=== PATIENT | male | born 1945 | race African-American/Black ===

== ENCOUNTER 2016-11-21 19:11 | Inpatient (IN) ==
[2016-11-21] MEDS ORDERED: ALBUTEROL/IPRATROPIUM 3 ML NEB RESP TX STA (19:44)
[2016-11-21 19:48] LABS: Basophils % 0.2 % (0.0-0.8); Eosinophils # 0.2 10*3/uL (0.0-0.87); Eosinophils % 1.3 % (0.00-10.9); Hematocrit 36.3 VOL% (42.0-52.0); Hemoglobin 12.4 GM/DL (14.0-18.0); Immature Granulocytes % 0.4 %; Immature Granulocytes Absolute 0.06 #; Lymphocytes # 1.5 10*3/uL (1.4-4.0); Lymphocytes % 10.8 % (21.2-54.2); Mean Corpuscular HGB Conc 34.2 GM/DL (32-36); Mean Corpuscular Hemoglobin 29 PG (27-34); Mean Corpuscular Volume 85.2 FL (87-102); Mean Platelet Volume 11.7 FL (9.6-12.0); Monocytes # 1.1 10*3/uL (0.11-0.8); Monocytes % 7.7 % (1.7-12.7); Neutrophils # 11.2 10*3/uL (1.4-7.4); Neutrophils % 79.6 % (38.7-73.9); Platelet Count 157 T/CUMM (130-400); Red Blood Count 4.26 MC/CUMM (3.8-5.5); Red Cell Distribution Width 14.1 % (9.3-17.3); White Blood Count 14.1 T/CUMM (4-12)
--- NOTE | 2016-11-21 19:58 | Emergency Department Note ---
IAllen Sierra, am scribing for, and in the presence of, Dana Castaneda DO 19: 45. I, Dana Castaneda DO, personally performed the services described in this documentation, ascribed by Silvana Villa in my presence, and it is both accurate and complete [id number] . Arrival - Arrival Chief Complaint: Shortness of Breath Stated Complaint: SOB/BLOOD IN URINE/WEAKNESS ED Nursing Triage Note: Patient to triage with c/o SOB with exertion and pain between his shoulders that started this morning when he woke up. patient has been diaphoretic. seen here yesterday with c/o blood in urine and had CT scan. having pain in scrotom. Mode of Arrival: Ambulatory Limitations: No Limitations Source: Patient Time Seen by Provider: 11/21/16 19:31 - History of Present Illness HPI Narrative: Pt is a 70 y/o male with c/o SOB that has been going on since his total knee replacement in July 2016 but worsened this morning. Pt has associated sxs of cough, diaphoresis, CP, fever, and hematuria. Pt states the hematuria has only been going on for a few days and he was seen here yesterday for the hematuria and had a CT. Pt reports "I can walk through 3 rooms and be out of breath." Pt states he did have a heart cath by Dr. Villalobos 20-30 years ago. Pt's PCP is Dr. Schmidt. No other complaints/pain in ED. Onset (ago): month(s) Consistency: constant Severity: moderate Severity scale (1-10): 5 Quality: other Allergies/Adverse Reactions: Allergies Allergy/AdvReac Type Severity Reaction Status Date / Time lisinopril Allergy Severe ANAPHYLAXIS Verified 11/21/16 19:17 Home Medications: Home Medications Medication Instructions Recorded Confirmed Type Bumetanide Tab [Bumex Tab] 1 mg PO DAILY 07/13/16 11/21/16 History Carbidopa/Levodopa [Carbidopa-Levo 25 - 100 tablet PO DAILY 07/13/16 11/21/16 History 25-100 mg Odt] Carvedilol [Coreg] 6.25 mg PO BID 07/13/16 11/21/16 History Clopidogrel [Plavix] 75 mg PO DAILY 07/13/16 11/21/16 History Glimepiride [Amaryl] 1 mg PO DAILY W/BREAKFAST 07/13/16 11/21/16 History Insulin NPH Hum/Reg Insulin Hm 50 unit SUBCUT BID 07/13/16 11/21/16 History [NovoLIN 70/30] Levothyroxine Tab [Synthroid Tab] 0.137 mg PO DAILY 07/13/16 11/21/16 History Omeprazole 20 mg PO DAILY 07/13/16 11/21/16 History Potassium Chloride 10 meq PO DAILY 07/13/16 11/21/16 History Simvastatin 40 mg PO BEDTIME 07/13/16 11/21/16 History Spironolactone 25 mg PO DAILY 07/13/16 11/21/16 History Aspirin EC Tab 325 mg PO DAILY #30 tablet 08/01/16 11/21/16 Rx Review of System - Review of System 12 point system: reviewed and no additional remarkable complaints except as stated - Review of System Constitutional: Present: diaphoresis, fever Respiratory: Present: cough, other (SOB) Cardiovascular: Present: chest pain Gastrointestinal: Absent: abdominal pain Genitourinary male: Present: hematuria Musculoskeletal: Absent: arm pain, leg pain, neck pain Skin: Absent: rash Neurological: Absent: headache Psychiatric: Absent: anxiety Medical,Surgical,& Family Hx - Medical History Cardio: History of: Cardiac Dysrhythmia (HEART MURMUR), Hypertension, Cardiovascular Problems (DR VILLALOBOS. LAST VISIT JUL 2015.) Neurology: History of: Cerebrovascular Accident (2013) No history of: Seizures HEENT: History of: Eye Problem (READING GLASSES, FLOATERS) Endocrine: History of: Diabetes Mellitus (IDDM), Dyslipidemia, Thyroid Disorder Rheumatology: History of;: Gout (OCCASIONALLY), Rheumatoid Arthritis Respiratory: History of: Obstructive Sleep Apnea (CPAP), Respiratory Problems ( SHORTNESS OF BREATH OCCASIONALLY. FLU VAC- YES; PNEU- YES) Gastrointestinal: History of: GERD, Hemorrhoids (PAST HX), Polyps (REMOVED) Other: History of: Anaphylaxis (LISINOPRIL), Cancer (FACIAL CANCER), Miscellaneous Medical Problems (DR MODI YEARLY. DR SCHMIDT.) - Surgical History Cardiac Surgeries: Sugical HX of: Cardiac Catheterization Thoracic Surgeries: Surgical HX of;: Kidney (Renal Surgery) (LEFT KIDNEY SX TO REMOVE CYSTS) HEENT Surgeries: Surgical HX of: Eye Surgery (THERON CATARACT SX) Abdominal Surgeries: Surgical HX of: Colonoscopy, EGD Reproductive Surgeries: Surgical HX of;: Genitourinary Surgery Orthopedic Surgeries: Surgical HX of;: Total Knee Replacement (LEFT KNEE) - Family History Family History: Reports;: Family Cancer (grandmother), Family Diabetes (mother) , Family Hypertension (son and mother) - Social History Smoking Status: Never smoker Frequency of Alcohol Use: None Type of Drug Use: None Exam Vital Signs: Vital Signs Temperature 98.1 F 11/21/16 19:14 Pulse Rate 101 H 11/21/16 19:14 Respiratory Rate 22 11/21/16 19:27 Blood Pressure 160/96 11/21/16 19:14 O2 Sat by Pulse Oximetry 96 11/21/16 19:14 - General General appearance: alert, in no apparent distress, obese (mildly obese) - Head Head exam: Present: atraumatic, normocephalic - Eye Eye exam: Present: PERRL, EOMI - ENT ENT exam: Present: mucous membranes moist. Absent: mucous membranes dry - Neck Neck exam: Present: full ROM. Absent: tenderness - Chest Chest inspection: Present: symmetric chest wall rise, tenderness (mild tenderness with palpitiation on the left chest wall) - Respiratory Respiratory exam: Present: wheezes (mild expiratory wheezing with the left greater than the right) - Cardiovascular Cardiovascular exam: Present: regular rate, normal rhythm, normal heart sounds - Abdominal Exam Abdominal exam: Present: soft. Absent: tenderness - Extremities Exam Extremities exam: Present: full ROM. Absent: tenderness - Back Exam Back exam: Present: full ROM. Absent: tenderness - Neurological Exam Neurological exam: Present: alert, oriented X3, CN II-XII intact. Absent: motor sensory deficit - Psychiatric Psychiatric exam: Present: normal affect, normal mood - Skin Skin exam: Present: warm, dry Course Course Narrative: spoke with hospitalist who will admit pt. Results - Labs CBC & BMP: 11/21/16 19:27 11/21/16 19:27 Lab Results: I have reviewed the patients labs Labs: Laboratory Tests 11/21/16 19:27 WBC 14.1 H Hgb 12.4 L Hct 36.3 L MCV 85.2 L Neut % (Auto) 79.6 H Lymph % (Auto) 10.8 L Neut # (Auto) 11.2 H Kerr # (Auto) 1.1 H Laboratory Tests 11/21/16 19:27 Carbon Dioxide 19 L Anion Gap 16.8 H BUN 24 H Creatinine 1.70 H Glucose 152 H Calcium 8.4 L ALT 15 L Albumin 3.3 L Globulin 4.1 H Albumin/Globulin Ratio 0.8 L Laboratory Tests 11/21/16 19:27 D-Dimer, Quantitative 0.7 - Diagnostic Findings Procedure: Chest x-ray: report reviewed by me (No evidence of acute pathology.) Disposition Clinical Impression: Dyspnea Case discussed with: patient, patient's family Disposition: Still a Patient Condition: Stable Time of Disposition: 21:36
--- NOTE | 2016-11-21 20:08 | XRay Report ---
XR chest 1V portable Indication: Shortness of breath. Comparison: Chest x-ray 05/14/2014. Technique: Portable AP chest was performed. Findings: Heart size, mediastinal contour, and hilar structures demonstrate no significant abnormalities. The lung parenchyma is clear. Bones and soft tissues demonstrate no significant abnormalities. Impression: 1. No evidence of acute pathology. 11/21/2016 8:04 PM PROCEDURE INTERPRETED AT [facility] DEPARTMENT OF RADIOLOGY Final Report Signed by: Dr. Dominick White
[2016-11-21 20:12] LABS: Alanine Aminotransferase 15 U/L (16-61); Albumin 3.3 G/DL (3.4-5.0); Alkaline Phosphatase 97 U/L (45-117); Aspartate Amino Transferase 17 U/L (0-37); Blood Urea Nitrogen 24 MG/DL (7-18); Calcium 8.4 MG/DL (8.5-10.1); Glucose 152 MG/DL (74-106); Osmolality,Calculated 281.7 MOS/KG (273-304); Potassium 3.8 MMOL/L (3.5-5.1); Sodium 138 MMOL/L (136-145); Total Protein 7.4 G/DL (6.4-8.3); Troponin I Only < 0.015 NG/ML (0.00-0.045)
--- NOTE | 2016-11-21 22:27 | Hospitalist History & Physical ---
Assessment and Plan (1) Sepsis secondary to UTI Status: Acute Assessment and plan: Status post cystoscopy with reported infection in his urine. Patient says he is passing blood and pus and has scrotal pain. Start levofloxacin after her urinalysis and cultures collected. He has a new anion gap acidosis which I suspect may be lactic acidosis of sepsis. Working that up. Leukocytosis with left shift. Current Visit: Yes (2) Hematuria Status: Acute Assessment and plan: Hemoglobin is stable. Should inform urology of admission in the morning. Could simply be from UTI. Current Visit: Yes (3) Restless leg Status: Chronic Assessment and plan: Continue Sinemet Current Visit: Yes (4) CKD stage 2 due to type 2 diabetes mellitus Status: Acute Assessment and plan: Renal function seems to be near baseline. Patient has not been taking Bumex as he has been having polyuria, probably secondary to UTI. He believes his weight has been stable as is the trace edema in his legs. Current Visit: Yes (5) Hypothyroidism (acquired) Status: Chronic Assessment and plan: Continue home levothyroxine, check TSH Current Visit: Yes (6) History of CVA (cerebrovascular accident) Status: Chronic Assessment and plan: No residual deficits per patient, continue aspirin and Plavix and statin Current Visit: Yes (7) High anion gap metabolic acidosis Status: Acute Assessment and plan: Favor lactic acidosis versus acidosis of renal failure. Checking lactate. Current Visit: Yes (8) Diabetes mellitus Status: Acute Assessment and plan: Patient takes NPH 70/30 50 units twice daily at home. Will give NPH 30 units twice daily, serial fingerstick glucose, medium lispro sliding scale insulin. hold oral hypoglycemics. Check A1c. Current Visit: Yes Qualifiers: Diabetes mellitus type: type 2 Diabetes mellitus complication status: with kidney complications Diabetes mellitus complication detail: with chronic kidney disease Diabetes mellitus extermination inspector insulin use: with extermination inspector use Chronic kidney disease stage: stage 2 (mild) Qualified Code(s): E11.22 - Type 2 diabetes mellitus with diabetic chronic kidney disease; N18.2 - Chronic kidney disease, stage 2 (mild); Z79.4 - snf (current) use of insulin (9) Hypertension Status: Acute Assessment and plan: Only antihypertensives on his list are spironolactone and Bumex. We will continue spironolactone and hold Bumex at this time. 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 Current Visit: Yes Qualifiers: Hypertension type: renovascular hypertension Qualified Code(s): I15.0 - Renovascular hypertension (10) Obstructive sleep apnea Status: Acute Assessment and plan: Patient is compliant with CPAP at home will continue Current Visit: Yes (11) Dyspnea Status: Acute Assessment and plan: Not certain the etiology of his dyspnea. Given the lack of tachycardia and a borderline d-dimer believe pulmonary embolism is unlikely. He does not have typical chest pain and his troponin is negative I do not believe he has ACS. BNP is not elevated and I do not hear crackles I do not think he is in heart failure. His chest x-ray does not indicate a pneumonia but his history and wheezing which was apparently present on arrival to the emergency department suggest that he may have bronchitis. Continue duo nebs. He will be on Levaquin for the UTI and this may help with his respiratory symptoms as well. He may be compensating for a possible lactic acidosis and that may be the reason for his increased work of breathing pulse oximetry. Current Visit: Yes History of Present Illness Chief complaint: Shortness of breath History of present illness: Mr. Ellis is a 70 year old male with hypertension, diabetes, sleep apnea on CPAP, hypothyroidism, CKD stage II, recent total knee replacement, CVA, status post right adrenalectomy, restless leg syndrome that presented with a chief complaint of shortness of breath. Onset abrupt. Duration since Wednesday. Severity moderately severe, patient at baseline is able to participate in physical therapy without dyspnea but over the last few days gets dyspneic ambulating within his own home. Somewhat relieved by nebulizer treatment given in the emergency department. Associated with mildly productive cough of clear sputum, runny nose, diaphoresis, occasional pleuritic chest pain worse with coughing, hematuria, generalized malaise. Denied sick contacts. The patient believes his problems started with hematuria and he believes that he is passing blood and pus in his urine. He had a cystoscopy on Wednesday and was told that he had a urinary tract infection but that antibiotics would be held until after CT scan which he has completed. He has been voiding about 10 times nightly and he feels that he is voiding so much that he has not needed his Bumex and indeed he is maintaining what he considers to be his normal weight of 305 pounds. He also has pain in his scrotum. I discussed CODE STATUS with Mr. Ellis and he preferred DNR. I have reviewed the workup performed in the emergency department including lab and imaging data. I discussed his case with emergency department providers. Home Medications Medication Instructions Recorded Confirmed Type Bumetanide Tab [Bumex Tab] 1 mg PO DAILY 07/13/16 11/21/16 History Carbidopa/Levodopa [Carbidopa-Levo 25 - 100 tablet PO DAILY 07/13/16 11/21/16 History 25-100 mg Odt] Carvedilol [Coreg] 6.25 mg PO BID 07/13/16 11/21/16 History Clopidogrel [Plavix] 75 mg PO DAILY 07/13/16 11/21/16 History Glimepiride [Amaryl] 1 mg PO DAILY W/BREAKFAST 07/13/16 11/21/16 History Insulin NPH Hum/Reg Insulin Hm 50 unit SUBCUT BID 07/13/16 11/21/16 History [NovoLIN 70/30] Levothyroxine Tab [Synthroid Tab] 0.137 mg PO DAILY 07/13/16 11/21/16 History Omeprazole 20 mg PO DAILY 07/13/16 11/21/16 History Potassium Chloride 10 meq PO DAILY 07/13/16 11/21/16 History Simvastatin 40 mg PO BEDTIME 07/13/16 11/21/16 History Spironolactone 25 mg PO DAILY 07/13/16 11/21/16 History Aspirin EC Tab 325 mg PO DAILY #30 tablet 08/01/16 11/21/16 Rx Allergies Allergy/AdvReac Type Severity Reaction Status Date / Time lisinopril Allergy Severe ANAPHYLAXIS Verified 11/21/16 19:17 Medical,Surgical,& Family Hx - Medical History Cardio: History of: Cardiac Dysrhythmia (HEART MURMUR), Hypertension, Cardiovascular Problems (DR COTO. LAST VISIT JUL 2015.) Neurology: History of: Cerebrovascular Accident (2013) No history of: Seizures HEENT: History of: Eye Problem (READING GLASSES, FLOATERS) Endocrine: History of: Diabetes Mellitus (IDDM), Dyslipidemia, Thyroid Disorder Rheumatology: History of;: Gout (OCCASIONALLY), Rheumatoid Arthritis Respiratory: History of: Obstructive Sleep Apnea (CPAP), Respiratory Problems ( SHORTNESS OF BREATH OCCASIONALLY. FLU VAC- YES; PNEU- YES) Gastrointestinal: History of: GERD, Hemorrhoids (PAST HX), Polyps (REMOVED) Other: History of: Anaphylaxis (LISINOPRIL), Cancer (FACIAL CANCER), Miscellaneous Medical Problems (DR MODI YEARLY. DR LINDER.) - Surgical History Cardiac Surgeries: Sugical HX of: Cardiac Catheterization Thoracic Surgeries: Surgical HX of;: Kidney (Renal Surgery) (LEFT KIDNEY SX TO REMOVE CYSTS) HEENT Surgeries: Surgical HX of: Eye Surgery (THERON CATARACT SX) Abdominal Surgeries: Surgical HX of: Colonoscopy, EGD Reproductive Surgeries: Surgical HX of;: Genitourinary Surgery Orthopedic Surgeries: Surgical HX of;: Total Knee Replacement (LEFT KNEE) - Family History Family History: Reports;: Family Cancer (grandmother), Family Diabetes (mother) , Family Hypertension (son and mother) - Social History Smoking Status: Former smoker (quit 40 years ago) Have you smoked in the last 12 months: No Frequency of Alcohol Use: None Type of Drug Use: None Marital Status: Lives With:: Spouse Functional capacity: uses cane/walker (since TKR) Review of systems: - Constitutional Constitutional: Present: Diaphoresis, low-grade fever, fatigue generalized weakness absent: Night sweats, weight loss - EENT Eyes: Absent: blurry vision Ears: Absent: decreased hearing, ear pain Nose, mouth and throat: Present: Nasal congestion absent: Sore throat - Cardiovascular Cardiovascular: Present: Sharp central chest pain worse with cough, edema, dyspnea on exertion absent: Change in orthopnea, palpitations - Respiratory Respiratory: Present: Dyspnea, productive cough clear sputum absent: Hemoptysis - Gastrointestinal Gastrointestinal: Absent: abdominal pain, constipation, diarrhea, dysphagia, hematemesis, hematochezia, melena, nausea, vomiting - Genitourinary Genitourinary: Present: Dysuria, hematuria, painful scrotum - Musculoskeletal Musculoskeletal: Present: mild knee tenderness since surgery - Neurological Neurological: Present: Orthostatic dizziness absent: confusion, focal weakness, numbness, paresthesias, syncope - Psychiatric Psychiatric: Absent: anxiety, depression - Endocrine Endocrine: Absent: cold intolerance, heat intolerance, polydipsia, polyuria - Hematologic/Lymphatic Hematologic/Lymphatic: Absent: easy bleeding, easy bruising, lymphadenopathy Exam - Constitutional Vitals: Period Temp Pulse Resp BP Sys/Thao Pulse Ox Last 24 Hr 98.1 F-98.1 F 101-101 22-24 160-160/96-96 96 General appearance: morbidly obese, other (Older -Turkish male lying in stretcher, pleasant cooperative) Exam: - Eye Eye exam: Present: EOMI. Absent: conjunctival injection, scleral icterus Pupils: Present: ALEKSANDR - ENT ENT exam: Present: normal external ear exam, normal oropharynx - Expanded ENT Exam Mouth exam: Present: moist, good dentition - Neck Neck exam: Present: normal inspection. Absent: lymphadenopathy, thyromegaly - Respiratory Respiratory exam: Present: clear to auscultation bilaterally, tachypnea. Absent : Rales, rhonchi, wheezes - Cardiovascular Cardiovascular exam: Present: regular rate and rhythm. Difficult to assess JVD. Absent: diastolic murmur, systolic murmur - Expanded Cardiovascular Exam Peripheral pulses: 2+: posterior tibialis (L), posterior tibialis (R) - GI/Abdominal GI/Abdominal exam: Present: normal bowel sounds, soft. Absent: distended, hyperactive bowel sounds, hypoactive bowel sounds, organomegaly, tenderness, rebound - Extremities Exam Extremities exam: Present: Trace bilateral lower extremity pitting edema - Neurological Exam Neurological exam: Present: alert, oriented X3, CN II-XII intact. Absent: motor sensory deficit - Psychiatric Psychiatric exam: Present: normal affect - Skin Skin exam: Present: warm, dry. Absent: diaphoretic, rash Results - Labs CBC & BMP: 11/21/16 19:27 11/21/16 19:27 - EKG EKG results: sinus rhythm (QRS 140, left bundle branch block) - Diagnostic Findings Procedure: Chest x-ray: report reviewed by me
[2016-11-21] MEDS ORDERED: ALBUTEROL/IPRATROPIUM 3 ML NEB RESP TX PRN (23:58)
[2016-11-21] MEDS ORDERED: DEXTROSE 50% 25 GM/50 ML VIAL IV PRN ×2 (23:58)
[2016-11-21] MEDS ORDERED: GLUCAGON 1 MG VIAL IM PRN ×2 (23:58)
[2016-11-21] MEDS ORDERED: ENOXAPARIN 40 MG/0.4 ML SYRINGE SUBCUT SCH (23:58)
[2016-11-21] MEDS ORDERED: ACETAMINOPHEN 325 MG TABLET PO PRN (23:58)
[2016-11-22] MEDS: LEVOFLOXACIN INJ 750 MG in PREMIX 1 EACH IV SCH (01:06)
[2016-11-22 01:15] LABS: Basophils % 0.2 % (0.0-0.8); Eosinophils # 0.2 10*3/uL (0.0-0.87); Eosinophils % 1.4 % (0.00-10.9); Hematocrit 34.2 VOL% (42.0-52.0); Hemoglobin 11.5 GM/DL (14.0-18.0); Immature Granulocytes % 0.5 %; Immature Granulocytes Absolute 0.06 #; Lymphocytes # 1.7 10*3/uL (1.4-4.0); Lymphocytes % 13.1 % (21.2-54.2); Mean Corpuscular HGB Conc 33.6 GM/DL (32-36); Mean Corpuscular Hemoglobin 29 PG (27-34); Mean Corpuscular Volume 86.8 FL (87-102); Mean Platelet Volume 11.4 FL (9.6-12.0); Monocytes # 1.1 10*3/uL (0.11-0.8); Monocytes % 8.1 % (1.7-12.7); Neutrophils # 9.9 10*3/uL (1.4-7.4); Neutrophils % 76.7 % (38.7-73.9); Platelet Count 151 T/CUMM (130-400); Red Blood Count 3.94 MC/CUMM (3.8-5.5); Red Cell Distribution Width 14.1 % (9.3-17.3); White Blood Count 12.9 T/CUMM (4-12)
[2016-11-22 01:27] LABS: Apearance,Urine Slightly Hazy (Clear); Bacteria,Urine Many /HPF (Few); Bilirubin,Urine Negative (Negative); Blood, Urine Large mg/dL (Negative); Glucose,Urine (UA) Negative (Negative); Granular Casts,Urine 3 /LPF (0-1); Ketones,Urine 5 mg/dL (Negative); Mucus,Urine Occasional /LPF (Occasional); Nitrite,Urine Positive (Negative); Protein,Urine 30 MG/DL; RBC,Urine 41 /HPF (0-4); Urine Color Yellow (Yellow); Urine Specific Gravity 1.016 (1.001-1.035); Urine Urobilinogen < 2.0 EU/DL (0.2-1.0); WBC,Urine 106 /HPF (0-6)
[2016-11-22 01:39] LABS: Calcium 8.2 MG/DL (8.5-10.1); Magnesium 1.8 MG/DL (1.8-2.4); Osmolality,Calculated 279.8 MOS/KG (273-304); Potassium 3.9 MMOL/L (3.5-5.1)
[2016-11-22] MEDS: ASPIRIN EC 325 MG TABLET PO SCH (08:00)
[2016-11-22] MEDS: INSULIN LISPRO 100 UNIT/ML SUBCUT SCH ×4 (08:00→21:31)
[2016-11-22] MEDS: CLOPIDOGREL 75 MG TABLET PO SCH (08:01)
[2016-11-22] MEDS: CARVEDILOL 6.25 MG TABLET PO SCH ×2 (08:03→21:27)
[2016-11-22] MEDS: PANTOPRAZOLE 40 MG TABLET PO SCH (08:04)
[2016-11-22] MEDS: INSULIN NPH 100 UNIT/ML SUBCUT SCH ×2 (08:04→16:19)
[2016-11-22] MEDS: SPIRONOLACTONE 25 MG TABLET PO SCH (08:04)
[2016-11-22] MEDS: LEVOTHYROXINE 137 MCG TABLET PO SCH (08:04)
--- NOTE | 2016-11-22 13:06 | Hospitalist Progress Note ---
Assessment and Plan (1) Dyspnea on exertion Status: Acute Assessment and plan: Patient states that this is a relatively new development. Walking on flat ground even in his own house gets him out of breath. Does not give me a history of recent a cardiology evaluation. His dyspnea is associated with a cough and there is no hemoptysis plan is to do an echocardiogram and an EKG for nothing pans out to be of concern cardiology will have to see this patient. Current Visit: Yes (2) Obstructive sleep apnea Status: Acute Assessment and plan: Patient is compliant with his CPAP at home will continue to use it here. Issue to have the family bring it. Current Visit: Yes (3) Sepsis secondary to UTI Status: Acute Assessment and plan: Urine cultures are negative as of now. We will continue to follow her in the evaluate use of antibiotics. Has been started on levofloxacin and his vital signs are normal. Current Visit: Yes (4) Hematuria Status: Acute Assessment and plan: This may be secondary to the urinary tract infection. However there is concern that the patient does have respiratory symptoms alongside renal symptoms and signs. Goodpasture's syndrome comes to mind especially in the face of patient' s age and gender Current Visit: Yes (5) CKD stage 2 due to type 2 diabetes mellitus Status: Acute Assessment and plan: Continue to monitor. Urine microscopy will be ordered. If this deteriorates nephrology should be consulted. Current Visit: Yes Hospitalist: Subjective Interval history: Patient has been seen interviewed and examined and chart has been reviewed. My first encounter with this patient admitted overnight by my colleagues for " gross hematuria" this is thought to be secondary to urinary tract infection. Reportedly there was also mucus being executed with blood. Patient states that he has a history of being in the hospital area part of the year for knee replacement and before he he was discharged he states that somebody told him that she would not be able to send him home because the urine was noted.. The patient had an infection at that time was not clear to me. Otherwise started having this gross hematuria for which he presented back to the emergency room after being seen briefly by a provider at the end part of the week. He acknowledges some chills at home. He also has been coughing a lot with some chest pain with coughing. Chest x-ray On admission reports no acute disease patient does not acknowledge any hemoptysis he does have a chronic stage II renal failure. To 10 years of age male with a combination of renal and lung disease one wonders about possibility of Goodpasture's syndrome. I will therefore ordered anti-basement membrane antibodies on him. The better side of this concern is that hematuria associated with the cough has happened only this time never in the past. Exam - Constitutional Vitals: Period Temp Pulse Resp BP Sys/Thao Pulse Ox Last 24 Hr 97.5 F-98.3 F 70-84 18-20 121-153/68-83 94-98 General appearance: over weight - Head Head exam: Present: normocephalic, atraumatic - Eye Eye exam: Present: EOMI, other (Anicteric sclera no conjunctival petechiae) Pupils: Present: ALEKSANDR - ENT ENT exam: Present: normal exam, normal oropharynx - Neck Neck exam: Present: normal inspection, other (Supple neck no JVD midline trachea ) - Respiratory Respiratory exam: Present: clear to auscultation bilaterally, other (No wheezing no rales) - Cardiovascular Cardiovascular exam: Present: regular rate and rhythm - GI/Abdominal GI/Abdominal exam: Present: normal bowel sounds - Extremities Exam Extremities exam: Present: full ROM - Back Exam Back exam: Present: normal inspection - Neurological Exam Neurological exam: Present: alert, oriented X3, CN II-XII intact - Psychiatric Psychiatric exam: Present: normal affect, normal mood - Skin Skin exam: Present: normal color, warm, dry Results - Labs CBC & BMP: 11/22/16 00:49 11/22/16 00:49 Lab Results: I have reviewed the past 24 hour labs Quality Measures - Stroke Symptom Onset Unknown: No
[2016-11-22] MEDS: SIMVASTATIN 40 MG TABLET PO SCH (21:27)
--- NOTE | 2016-11-22 22:38 | EKG Report ---
Stationary ECG Study [facility] ER Test Date: 11/21/2016 7:23:02 PM Pat Name: MARIA DEL CARMEN SARGENT Department: Room: 537 Gender: M Rental Representative: Suyapa : 1945 Requested by: Dana Castaneda Order Number: [id number] Enzo MD: MAYANK ENCARNACION Intervals [place] Rate: 94 P: 65 AK: 178 QRS: -57 QRSD: 140 T: 80 QT: 348 QTc: 400 Interpretive Statements SINUS RHYTHM POSSIBLE LEFT ATRIAL ENLARGEMENT LEFT BUNDLE BRANCH BLOCK Electronically Signed On 11-23-16 06:56:26 CDT by MAYANK ENCARNACION [id number]
[2016-11-23] MEDS: LEVOTHYROXINE 137 MCG TABLET PO SCH (08:36)
[2016-11-23] MEDS: INSULIN LISPRO 100 UNIT/ML SUBCUT SCH ×4 (08:36→21:03)
[2016-11-23] MEDS: INSULIN NPH 100 UNIT/ML SUBCUT SCH ×2 (08:36→16:57)
[2016-11-23] MEDS: CLOPIDOGREL 75 MG TABLET PO SCH (08:36)
[2016-11-23] MEDS: PANTOPRAZOLE 40 MG TABLET PO SCH (08:37)
[2016-11-23] MEDS: SPIRONOLACTONE 25 MG TABLET PO SCH (08:37)
[2016-11-23] MEDS: ASPIRIN EC 325 MG TABLET PO SCH (08:37)
[2016-11-23] MEDS: CARVEDILOL 6.25 MG TABLET PO SCH ×2 (08:37→20:59)
--- NOTE | 2016-11-23 10:06 | EKG Report ---
Stationary ECG Study [facility] Test Date: 11/23/2016 10:05:33 AM Pat Name: MARIA DEL CARMEN SARGENT Department: Room: 537 Gender: M Loan Originator: TIM : 1945 Requested by: Lui Will Order Number: [id number] Reading MD: RUTH ANN GUTIERREZ Intervals [place] Rate: 63 P: 70 DC: 201 QRS: -16 QRSD: 146 T: 21 QT: 424 QTc: 431 Interpretive Statements SINUS RHYTHM WITH MARKED SINUS ARRHYTHMIA LEFT BUNDLE BRANCH BLOCK Electronically Signed On 11-23-16 11:54:25 CDT by RUTH ANN GUTIERREZ [id number]
--- NOTE | 2016-11-23 10:25 | Event Note ---
As to do a courtesy consult on this 70-year-old male whom I am been following for any years. He has a history of hypertension. Diabetic. He had severe hypertension and had to have an adrenalectomy at one time for an adenoma causing hyperaldosteronism. He is in now with an apparent urinary tract infection following a cystoscope for hematuria. Urine cultures are pending. He is on appropriate antibiotics. He is getting an echocardiogram as I visited him in the room. Basically I agree with the current evaluation. Please call if needed further.
--- NOTE | 2016-11-23 12:35 | Hospitalist Progress Note ---
Assessment and Plan (1) Dyspnea on exertion Status: Acute Assessment and plan: Patient states that this is a relatively new development. Walking on flat ground even in his own house gets him out of breath. Does not give me a history of recent a cardiology evaluation. His dyspnea is associated with a cough and there is no hemoptysis plan is to do an echocardiogram and an EKG for nothing pans out to be of concern cardiology will have to see this patient. Current Visit: Yes (2) Obstructive sleep apnea Status: Acute Assessment and plan: Patient is compliant with his CPAP at home will continue to use it here. Issue to have the family bring it. Current Visit: Yes (3) Sepsis secondary to UTI Status: Acute Assessment and plan: Urine cultures are negative as of now. We will continue to follow her in the evaluate use of antibiotics. Has been started on levofloxacin and his vital signs are normal. Current Visit: Yes (4) Hematuria Status: Acute Assessment and plan: This may be secondary to the urinary tract infection. However there is concern that the patient does have respiratory symptoms alongside renal symptoms and signs. Goodpasture's syndrome comes to mind especially in the face of patient' s age and gender Current Visit: Yes (5) CKD stage 2 due to type 2 diabetes mellitus Status: Acute Assessment and plan: Continue to monitor. Urine microscopy will be ordered. If this deteriorates nephrology should be consulted. Current Visit: Yes Hospitalist: Subjective Interval history: Patient has been seen interviewed and examined and chart has been reviewed. He is stating that he is doing a lot better while at rest. Still has significant exercise intolerance. Concern about cardiac cardiac contribution to his pituitary problems. Echocardiogram was been ordered 12-lead EKG has been ordered. She is also requested to be looked at by Dr. Schmidt with his primary care physician; this was been done. He was admitted to the hospital with hematuria subsequent to a cystoscopy 2 days before. Patient reported as urinary tract infection that has been brewing for some time. He also had history of cough shortness of breath as described above no hemoptysis. 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 He does not have hematuria and the more repeat chemistry will be done in the morning Exam - Constitutional Vitals: Period Temp Pulse Resp BP Sys/Thao Pulse Ox Last 24 Hr 97.3 F-98.9 F 63-78 18-20 119-164/69-84 96-100 General appearance: over weight - Head Head exam: Present: normocephalic, atraumatic - Eye Eye exam: Present: EOMI Pupils: Present: ALEKSANDR - ENT ENT exam: Present: normal exam, normal oropharynx - Neck Neck exam: Present: normal inspection, other (No jugular venous distention) - Respiratory Respiratory exam: Present: clear to auscultation bilaterally, other (No wheezing no rales no rhonchi) - Cardiovascular Cardiovascular exam: Present: regular rate and rhythm - GI/Abdominal GI/Abdominal exam: Present: normal bowel sounds, soft - Extremities Exam Extremities exam: Present: full ROM - Back Exam Back exam: Present: normal inspection - Neurological Exam Neurological exam: Present: alert, oriented X3, CN II-XII intact - Psychiatric Psychiatric exam: Present: normal affect, normal mood - Skin Skin exam: Present: normal color, warm, dry Results - Labs CBC & BMP: 11/22/16 00:49 11/22/16 00:49 Lab Results: I have reviewed the past 24 hour labs (Morning labs will be ordered ) Quality Measures - Stroke Symptom Onset Unknown: No
--- NOTE | 2016-11-23 14:12 | Urology Consultation ---
History of Present Illness - Data of Consult Consult date: 11/23/16 - Consult Narrative History of present illness: Mr. Ellis is a 70 year old male This 70-year-old black male is known to me. He was recently seen in the office and was being evaluated for gross hematuria. His CT urogram showed renal cyst with complex cyst and one kidney and last Wednesday he had a cystoscopic exam which showed no lesions but there was evidence of urinary tract infection. His urine culture done in the office prior to the cystoscopy had no growth. Following cystoscopy the patient started having of fever chills and sweats and was seen in the emergency room with an elevated white count. He is also had some scrotal pain but no tenderness or swelling. He has blood cultures are negative and his urine cultures growing out gram-negative rods. On physical examination the testicles are normal there is no evidence of epididymitis at this point. I think the patient may have developed a urinary tract infection that was exacerbated by the cystoscopic exam and agree with current antibiotics. CC: Lui Will MD - Home Medications and Allergies Home Medications: Home Medications Medication Instructions Recorded Confirmed Type Bumetanide Tab [Bumex Tab] 1 mg PO DAILY 07/13/16 11/22/16 History Carbidopa/Levodopa [Carbidopa-Levo 25 - 100 tablet PO DAILY 07/13/16 11/22/16 History 25-100 mg Odt] Carvedilol [Coreg] 6.25 mg PO BID 07/13/16 11/22/16 History Clopidogrel [Plavix] 75 mg PO DAILY 07/13/16 11/22/16 History Glimepiride [Amaryl] 1 mg PO DAILY W/BREAKFAST 07/13/16 11/21/16 History Insulin NPH Hum/Reg Insulin Hm 50 unit SUBCUT BID W/MEALS 07/13/16 11/22/16 History [NovoLIN 70/30] Levothyroxine Tab [Synthroid Tab] 0.137 mg PO DAILY 07/13/16 11/22/16 History Omeprazole 20 mg PO DAILY 07/13/16 11/22/16 History Potassium Chloride 10 meq PO DAILY 07/13/16 11/22/16 History Simvastatin 40 mg PO BEDTIME 07/13/16 11/22/16 History Spironolactone 25 mg PO DAILY 07/13/16 11/22/16 History Aspirin EC Tab 325 mg PO DAILY #30 tablet 08/01/16 11/21/16 Rx Allergies/Adverse Reactions: Allergies Allergy/AdvReac Type Severity Reaction Status Date / Time lisinopril Allergy Severe ANAPHYLAXIS Verified 11/21/16 19:17 Exam - Constitutional Vitals: Period Temp Pulse Resp BP Sys/Thao Pulse Ox Last 24 Hr 97.3 F-98.9 F 63-78 18-20 119-164/69-84 96-100 Results - Labs CBC & BMP: 11/22/16 00:49 11/22/16 00:49
--- NOTE | 2016-11-23 16:47 | ECHO Report ---
Carmine Ellis 11/23/2016 Exam Date: 10:05 Referring Physician: Tara JacobsTechnologist: Age: 70 Ht (in): 70 Wt (lb): 293 MExam [facility] Gender: Echo [id number]: Dyspnea, unspecified, Chronic kidneyIndications:disease, stage 3 (moderate), Obstructive sleep apnea, Hematuria BP: 120 / 71 HR: 66 SinusRhythm: PoorTechnical Quality: IMPRESSIONS Normal LV systolic function, ejection fraction 50-55%. Grade 1/4 diastolic dysfunction. Moderate concentric left ventricular hypertrophy. Mild left atrial enlargement. Mild mitral and tricuspid regurgitation. MEASUREMENTS (Male / Female) Normal Values 2D ECHO LV Diastolic Diameter PLAX 3.0 cm 4.2 - 5.9 / 3.9 - 5.3 cm LV Systolic Diameter PLAX 3.1 cm LV Fractional Shortening PLAX -5.1 % IVS Diastolic Thickness 1.7 cm 0.6 - 1.0 / 0.6 - 0.9 cm LVPW Diastolic Thickness 1.7 cm 0.6 - 1.0 / 0.6 - 0.9 cm RV Internal Dim ED PLAX 3.3 cm Aortic Root Diameter 3.6 cm LA Systolic Diameter LX 4.4 cm 3.0 - 4.0 / 2.7 - 3.8 cm DOPPLER TR Peak Velocity 224.8 cm/s TR Peak Gradient 20.2 mmHg FINDINGS Left Ventricle Normal left ventricular cavity size. Moderate left ventricular hypertrophy. Left ventricular ejection fraction is estimated at 50-55 %. There is poor endocardial resolution which hinders regional wall motion assessment. There is a grade 1/4 diastolic dysfunction consistent with impaired relaxation. Right Ventricle The right ventricle is normal in size and function. Right Atrium The right atrium is normal in size. Left Atrium The left atrium is mildly enlarged. Mitral Valve Morphologically normal mitral valve. Mild mitral valve regurgitation. Aortic Valve Morphologically normal aortic valve without significant sclerosis or stenosis. There is no aortic regurgitation. Tricuspid Valve Morphologically normal tricuspid valve. Trace to mild tricuspid valve regurgitation. Pulmonic Valve Morphologically normal pulmonic valve without significant stenosis. There is no pulmonic regurgitation. Pericardium Normal pericardium without effusion. Aorta Normal ascending aorta dimension. Amaya Potter MD (Electronically Signed) 23 Nov 2016 16:46Final Date:
--- NOTE | 2016-11-23 18:20 | Cardiology Consult Note ---
Jovany Ibarra Vanessa, RN, am scribing for, and in the presence of, Amaya Potter MD 18:20. Assessment and Plan - Time spent with patient Time spent with patient: Greater than 30 minutes (Due to assessment, planning, documentation, medication review) (1) Dyspnea on exertion Status: Acute Assessment and plan: SEE PLAN OF CARE LISTED BELOW. Current Visit: Yes (2) History of TIA (transient ischemic attack) Status: Chronic Assessment and plan: SEE PLAN OF CARE LISTED BELOW. Current Visit: Yes (3) Diabetes mellitus Status: Chronic Assessment and plan: SEE PLAN OF CARE LISTED BELOW. 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 Current Visit: Yes Qualifiers: Hypertension type: renovascular hypertension Qualified Code(s): I15.0 - Renovascular hypertension (5) Obstructive sleep apnea Status: Chronic Assessment and plan: SEE PLAN OF CARE LISTED BELOW. Current Visit: Yes (6) Hypothyroidism (acquired) Status: Chronic Assessment and plan: SEE PLAN OF CARE LISTED BELOW. Current Visit: Yes (7) Obesity Status: Chronic Current Visit: No (8) Hyperlipemia Status: Acute Assessment and plan: SEE PLAN OF CARE LISTED BELOW. Current Visit: Yes History of Present Illness - Data of Consult Consult date: 11/23/16 Requesting Physician: Lui Will Primary care physician: Mike Schmidt - Consult Narrative Reason for consult: shortness of breath, fatigue History of present illness: PRIMARY THRASHER FEEDER: DR. FRANCES VILLALOBOS PCP: DR. SCHMIDT CARDIOLOGY CONSULT NOTE: EXERTIONAL DYSPNEA, UTI Mr. Ellis is a 70 year old male with risk factors significant for: hypertension, diabetes, hyperlipidemia, obstructive sleep apnea, morbid obesity. Past medical history includes hypothyroidism, TIA, restless leg syndrome, hyperaldosteronism with previous adrenalectomy. Patient was recently seen in clinic and evaluated by Dr. Modi for gross hematuria. He had a cystoscopy and urine culture which revealed UTI. After cystoscopy, he experienced fever, chills, and diaphoresis. This prompted his presentation to the emergency room for further evaluation on 11/21. White blood cell count was elevated greater than 14,000, and urine culture revealed gram-negative rods. Patient also reported he had experienced dyspnea at rest and with exertion particularly after right knee replacement in July 2016. Patient was admitted to [facility] floor per hospital medicine for further evaluation and treatment of UTI. Cardiology has been consulted for further evaluation of dyspnea on exertion with moderate risk factors. Upon exam and interview, patient is awake and alert and resting in bed quietly this afternoon. His is present at bedside. Patient reports that over the last approximate 2 weeks or so, he has noticed exertional dyspnea and fatigue with some chest tightness. He describes a midsternal chest pressure, and reports that it sometimes radiates into his left neck, but during exam the left neck discomfort is reproducible with palpation. Reports these episodes happen at rest, and he does not have exertional chest tightness. No associated nausea , vomiting, diaphoresis. Admits to some dizziness with these episodes. Denies recent or current orthopnea, PND, palpitation, presyncope. He is very compliant with his CPAP machine, and it is noted at bedside. Patient reports he has had a recent nonproductive cough, and he associates the onset of his shortness of breath with this cough. Reports he has been compliant with physical therapy post knee replacement in July, but he admits to some mild limitations with mobility and uses a cane with ambulation. EKG sinus rhythm no acute ST segment changes. Systolic BP ranging 120-155 mmHg. Patient has previously been evaluated in July [address] Villalobos after experiencing atypical left shoulder pain with multiple risk factors for CAD. He underwent nuclear SPECT scan testing, and it was negative for ischemic finding. Echocardiogram obtained earlier this morning, and we will review. ASSESSMENT/PLAN: 1. DYSPNEA ON EXERTION -etiology is unclear. We will rule out pulmonary embolism with VQ scan (creatinine mildly elevated). If this is low probability , we will need to consider cardiac catheterization given the severity of his exertional dyspnea without clear etiology. 2. OBSTRUCTIVE SLEEP APNEA WITH CPAP COMPLIANCE -chronic, stable 3. HYPERTENSION -chronic, stable 4. HYPERLIPIDEMIA -chronic, stable 5. UTI -improving on antibiotic therapy. 6. DIABETES -chronic, stable. 7. HISTORY OF TIA -chronic, stable. 8. HYPOTHYROIDISM chronic, stable CC: Lui Will MD - Home Medications and Allergies Home Medications: Home Medications Medication Instructions Recorded Confirmed Type Bumetanide Tab [Bumex Tab] 1 mg PO DAILY 07/13/16 11/22/16 History Carbidopa/Levodopa [Carbidopa-Levo 25 - 100 tablet PO DAILY 07/13/16 11/22/16 History 25-100 mg Odt] Carvedilol [Coreg] 6.25 mg PO BID 07/13/16 11/22/16 History Clopidogrel [Plavix] 75 mg PO DAILY 07/13/16 11/22/16 History Glimepiride [Amaryl] 1 mg PO DAILY W/BREAKFAST 07/13/16 11/21/16 History Insulin NPH Hum/Reg Insulin Hm 50 unit SUBCUT BID W/MEALS 07/13/16 11/22/16 History [NovoLIN 70/30] Levothyroxine Tab [Synthroid Tab] 0.137 mg PO DAILY 07/13/16 11/22/16 History Omeprazole 20 mg PO DAILY 07/13/16 11/22/16 History Potassium Chloride 10 meq PO DAILY 07/13/16 11/22/16 History Simvastatin 40 mg PO BEDTIME 07/13/16 11/22/16 History Spironolactone 25 mg PO DAILY 07/13/16 11/22/16 History Aspirin EC Tab 325 mg PO DAILY #30 tablet 08/01/16 11/21/16 Rx Allergies/Adverse Reactions: Allergies Allergy/AdvReac Type Severity Reaction Status Date / Time lisinopril Allergy Severe ANAPHYLAXIS Verified 11/21/16 19:17 12 point system: reviewed and no additional remarkable complaints except as stated - Constitutional Constitutional: Present: as per HPI - EENT Eyes: Present: as per HPI Ears: Present: as per HPI Nose, mouth and throat: Present: as per HPI - Cardiovascular Cardiovascular: Present: as per HPI - Respiratory Respiratory: Present: as per HPI - Gastrointestinal Gastrointestinal: Present: as per HPI - Genitourinary Genitourinary: Present: as per HPI - Musculoskeletal Musculoskeletal: Present: as per HPI - Neurological Neurological: Present: as per HPI - Psychiatric Psychiatric: Present: as per HPI - Endocrine Endocrine: Present: as per HPI - Hematologic/Lymphatic Hematologic/Lymphatic: Present: as per HPI Medical,Surgical,& Family Hx - Medical History Cardio: History of: CHF, Hypertension, Cardiovascular Problems (cardiac murmur) Neurology: History of: Cerebrovascular Accident (2014) No history of: Seizures HEENT: History of: Eye Problem (READING GLASSES, FLOATERS) Endocrine: History of: Diabetes Mellitus (IDDM), Dyslipidemia, Thyroid Disorder Rheumatology: History of;: Gout (OCCASIONALLY), Rheumatoid Arthritis Respiratory: History of: Obstructive Sleep Apnea (CPAP), Respiratory Problems ( SHORTNESS OF BREATH OCCASIONALLY. FLU VAC- YES; PNEU- YES) Gastrointestinal: History of: GERD, Hemorrhoids (PAST HX), Polyps (REMOVED) Other: History of: Anaphylaxis (LISINOPRIL), Cancer (FACIAL CANCER), Miscellaneous Medical Problems (DR MODI YEARLY. DR SCHMIDT.) - Surgical History Cardiac Surgeries: Sugical HX of: Cardiac Catheterization Thoracic Surgeries: Surgical HX of;: Kidney (Renal Surgery) (LEFT KIDNEY SX TO REMOVE CYSTS) HEENT Surgeries: Surgical HX of: Eye Surgery (THERON CATARACT SX) Abdominal Surgeries: Surgical HX of: Colonoscopy, EGD Reproductive Surgeries: Surgical HX of;: Genitourinary Surgery Orthopedic Surgeries: Surgical HX of;: Total Knee Replacement (LEFT KNEE) - Family History Family History: Reports;: Family Cancer (grandmother), Family Diabetes (mother) , Family Hypertension (son and mother) - Social History Smoking Status: Former smoker Frequency of Alcohol Use: None Type of Drug Use: None Physical Examination Vital Signs Temp Pulse Resp BP Pulse Ox 98.1 F 101 H 24 160/96 96 11/21/16 19:14 11/21/16 19:14 11/21/16 19:14 11/21/16 19:14 11/21/16 19:14 Other: General appearance: normal weight, no acute distress - Head Head exam: Present: normal inspection, normocephalic, atraumatic. Absent: hematoma, laceration - Eye Eye exam: Present: EOMI. Absent: conjunctival injection, nystagmus, periorbital swelling, scleral icterus, laceration to eyelids Pupils: Present: PERRL. Absent: constricted, dilated, fixed, irregular, unequal - ENT ENT exam: Present: normal exam, normal external ear exam - Neck Neck exam: Present: normal inspection. Absent: lymphadenopathy, meningismus, tenderness, thyromegaly - Respiratory Respiratory exam: Present: clear to auscultation bilaterally. Absent: accessory muscle use, chest wall tenderness - Cardiovascular Cardiovascular exam: Present: regular rate and rhythm. Absent: carotid bruit, gallop, JVD, rubs - GI/Abdominal GI/Abdominal exam: Present: normal bowel sounds, soft. Absent: distended, firm , guarding, hernia, mass, tenderness, rebound. - Extremities Exam Extremities exam: Present: normal inspection, normal capillary refill. Absent: calf tenderness, edema - Back Exam Back exam: Present: normal inspection. Absent: muscle spasm, vertebral tenderness - Neurological Exam Neurological exam: Present: alert, oriented X3, grossly intact without resting or intention tremor - Psychiatric Psychiatric exam: Present: normal affect, normal mood - Skin Skin exam: Present: normal color, warm, dry, intact. Absent: cyanosis, diaphoretic, rash, urticari Result/EKG - Labs CBC & BMP: 11/22/16 00:49 11/22/16 00:49 Lab Results: I have reviewed the past 24 hour labs Labs: Laboratory Results - last 24 hr 11/22/16 11/22/16 11/23/16 16:23 21:22 07:38 POC Glucose 121 H 178 H 168 H 11/23/16 11:41 POC Glucose 124 H - Diagnostic Findings Procedure: Chest x-ray: image reviewed by me, report reviewed by me - EKG EKG results: interpreted by me, no acute changes EKG shows: sinus rhythm Quality Measures - Stroke Symptom Onset Unknown: No I, Amaya Potter MD, personally performed the services described in this documentation, ascribed by Jeanette Manzo RN in my presence, and it is both accurate and complete [id number] .
[2016-11-23] MEDS: SIMVASTATIN 40 MG TABLET PO SCH (20:59)
[2016-11-23] MEDS: LEVOFLOXACIN INJ 750 MG in PREMIX 1 EACH IV SCH ×2 (23:20)
[2016-11-24 06:51] LABS: Basophils % 0.4 % (0.0-0.8); Eosinophils # 0.3 10*3/uL (0.0-0.87); Eosinophils % 5.7 % (0.00-10.9); Hematocrit 34.2 VOL% (42.0-52.0); Hemoglobin 11.3 GM/DL (14.0-18.0); Immature Granulocytes % 0.7 %; Immature Granulocytes Absolute 0.03 #; Lymphocytes % 21.7 % (21.2-54.2); Mean Corpuscular Hemoglobin 28 PG (27-34); Mean Corpuscular Volume 84.7 FL (87-102); Mean Platelet Volume 11.6 FL (9.6-12.0); Monocytes # 0.8 10*3/uL (0.11-0.8); Monocytes % 16.3 % (1.7-12.7); Neutrophils # 2.5 10*3/uL (1.4-7.4); Neutrophils % 55.2 % (38.7-73.9); Platelet Count 187 T/CUMM (130-400); Red Blood Count 4.04 MC/CUMM (3.8-5.5); Red Cell Distribution Width 14.1 % (9.3-17.3); White Blood Count 4.6 T/CUMM (4-12)
[2016-11-24 07:19] LABS: Eosinophils 6 % (0-10); Hypochromasia 1+; Lymphocytes 20 % (20-55); Ovalocytes Slight; Platelet Estimate Normal; Segmented Neutrophils 59 % (50-85); Total Cells Counted 100
[2016-11-24 07:23] LABS: Calcium 7.9 MG/DL (8.5-10.1); Magnesium 1.9 MG/DL (1.8-2.4); Potassium 4.2 MMOL/L (3.5-5.1)
--- NOTE | 2016-11-24 07:30 | Urology Progress Note ---
Urology - PN: Subj Interval history: The patient is afebrile. His urine cultures growing out gram-negative rods and the final report is pending. Exam - Constitutional Vitals: Period Temp Pulse Resp BP Sys/Thao Pulse Ox Last 24 Hr 97.3 F-98.8 F 59-66 18-20 115-141/63-91 97-100 Results - Labs CBC & BMP: 11/24/16 05:59 11/22/16 00:49
[2016-11-24] MEDS: LEVOTHYROXINE 137 MCG TABLET PO SCH (09:19)
[2016-11-24] MEDS: CLOPIDOGREL 75 MG TABLET PO SCH (09:19)
[2016-11-24] MEDS: PANTOPRAZOLE 40 MG TABLET PO SCH (09:19)
[2016-11-24] MEDS: SPIRONOLACTONE 25 MG TABLET PO SCH (09:19)
[2016-11-24] MEDS: ASPIRIN EC 325 MG TABLET PO SCH (09:19)
[2016-11-24] MEDS: CARVEDILOL 6.25 MG TABLET PO SCH ×2 (09:20→20:23)
[2016-11-24] MEDS: INSULIN LISPRO 100 UNIT/ML SUBCUT SCH ×4 (09:20→20:23)
[2016-11-24] MEDS: INSULIN NPH 100 UNIT/ML SUBCUT SCH ×2 (09:20→17:03)
--- NOTE | 2016-11-24 09:27 | Nuclear Medicine Report ---
Exam: Lung scan ventilation/perfusion Date: November 24, 2016 Comparison: Chest one view portable November 21, 2016 Reason: Shortness of breath Technique: 40 mCi of technetium 99m DTPA aerosolized was administered as well as 5 mCi of technetium 99m MAA IV. Ventilation and perfusion images of both lungs were acquired. Findings: No large mismatched perfusion defect is identified at either lung. Note is made of elevation of the right hemidiaphragm on the recent chest x-ray. Impression: Low probability for pulmonary embolism. PROCEDURE INTERPRETED AT [facility] DEPARTMENT OF RADIOLOGY Final Report Signed by: Dr. Melvi Elizabeth
[2016-11-24] MEDS ORDERED: MAGNESIUM SULF RIDER 2 GM in PREMIX 1 EACH IV PRN (10:18)
[2016-11-24] MEDS ORDERED: POTASSIUM CHLORIDE RIDER 10 MEQ in PREMIX 1 EACH IV PRN (10:18)
--- NOTE | 2016-11-24 10:25 | Cardiology Progress Note ---
Jovany Ibarra Vanessa, RN, am scribing for, and in the presence of, Amaya Potter MD 10:25. Assessment and Plan - Time spent with patient Time spent with patient: Greater than 30 minutes (1) Dyspnea on exertion Status: Acute Assessment and plan: SEE PLAN OF CARE LISTED BELOW. Current Visit: Yes (2) History of TIA (transient ischemic attack) Status: Chronic Assessment and plan: SEE PLAN OF CARE LISTED BELOW. Current Visit: Yes (3) Diabetes mellitus Status: Chronic Assessment and plan: SEE PLAN OF CARE LISTED BELOW. 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 Current Visit: Yes Qualifiers: Hypertension type: renovascular hypertension Qualified Code(s): I15.0 - Renovascular hypertension (5) Obstructive sleep apnea Status: Chronic Assessment and plan: SEE PLAN OF CARE LISTED BELOW. Current Visit: Yes (6) Hypothyroidism (acquired) Status: Chronic Assessment and plan: SEE PLAN OF CARE LISTED BELOW. Current Visit: Yes (7) Obesity Status: Chronic Current Visit: No (8) Hyperlipemia Status: Acute Assessment and plan: SEE PLAN OF CARE LISTED BELOW. 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 FRANCES VILLALOBOS PCP: DR. LINDER CARDIOLOGY CONSULT NOTE: EXERTIONAL DYSPNEA, UTI Mr. Ellis is a 70 year old male with risk factors significant for: hypertension, diabetes, hyperlipidemia, obstructive sleep apnea, morbid obesity. Past medical history includes hypothyroidism, TIA, restless leg syndrome, hyperaldosteronism with previous adrenalectomy. Patient was recently seen in clinic and evaluated by Dr. Palomares for gross hematuria. He had a cystoscopy and urine culture which revealed UTI. After cystoscopy, he experienced fever, chills, and diaphoresis. This prompted his presentation to the emergency room for further evaluation on 11/21. White blood cell count was elevated greater than 14,000, and urine culture revealed gram-negative rods. Patient also reported he had experienced dyspnea at rest and with exertion particularly after right knee replacement in July 2016. Patient was admitted to [facility] floor per hospital medicine for further evaluation and treatment of UTI. Cardiology has been consulted for further evaluation of dyspnea on exertion with moderate risk factors. Patient has previously been evaluated in July [address] Villalobos after experiencing atypical left shoulder pain with multiple risk factors for CAD. He underwent nuclear SPECT scan testing, and it was negative for ischemic finding. NOVEMBER 24, 2016: Mr. Ellis has just returned to bed from the bathroom, and he is somewhat short of breath and tachycardic. Reports he is dyspneic with exertion after ambulation to bathroom and back to bed, and is trying to catch his breath. VQ lung scan yesterday evening negative for evidence of PE. Denies chest pain. He is afebrile, blood pressure 120/70, pulse rate is 70. H&H stable potassium 4.2, magnesium is 1.9. Creatinine improved and is 1.2 with GFR 101. Patient made n.p.o., Private Sector [employer] called, and [facility] scheduled for this afternoon. ASSESSMENT/PLAN: 1. DYSPNEA ON EXERTION -pulmonary embolism ruled out with VQ scan. We will plan for left heart catheterization this afternoon to define coronary artery anatomy and evaluate for obstructive disease as etiology for source of symptom. I have discussed the role, risks and benefits with the patient and he is agreeable to proceeding. His dyspnea is significant without clear etiology. 2. OBSTRUCTIVE SLEEP APNEA WITH CPAP COMPLIANCE -chronic, stable 3. HYPERTENSION -chronic, stable 4. HYPERLIPIDEMIA -chronic, stable 5. UTI -improving on antibiotic therapy. 6. DIABETES -chronic, stable. 7. HISTORY OF TIA -chronic, stable. 8. HYPOTHYROIDISM chronic, stable Exam (Progress Note) - Constitutional Vitals: Period Temp Pulse Resp BP Sys/Thao Pulse Ox Last 24 Hr 97.6 F-98.8 F 59-66 18-20 115-141/63-91 97-100 Exam: General appearance: normal weight, no acute distress - Head Head exam: Present: normal inspection, normocephalic, atraumatic. Absent: hematoma, laceration - Eye Eye exam: Present: EOMI. Absent: conjunctival injection, nystagmus, periorbital swelling, scleral icterus, laceration to eyelids Pupils: Present: PERRL. Absent: constricted, dilated, fixed, irregular, unequal - ENT ENT exam: Present: normal exam, normal external ear exam - Neck Neck exam: Present: normal inspection. Absent: lymphadenopathy, meningismus, tenderness, thyromegaly - Respiratory Respiratory exam: Present: clear to auscultation bilaterally. Absent: accessory muscle use, chest wall tenderness - Cardiovascular Cardiovascular exam: Present: regular rate and rhythm. Absent: carotid bruit, gallop, JVD, rubs - GI/Abdominal GI/Abdominal exam: Present: normal bowel sounds, soft. Absent: distended, firm , guarding, hernia, mass, tenderness, rebound. - Extremities Exam Extremities exam: Present: normal inspection, normal capillary refill. Absent: calf tenderness, edema - Back Exam Back exam: Present: normal inspection. Absent: muscle spasm, vertebral tenderness - Neurological Exam Neurological exam: Present: alert, oriented X3, grossly intact without resting or intention tremor - Psychiatric Psychiatric exam: Present: normal affect, normal mood - Skin Skin exam: Present: normal color, warm, dry, intact. Absent: cyanosis, diaphoretic, rash, urticari Result/EKG - Labs CBC & BMP: 11/24/16 05:59 11/24/16 05:59 Lab Results: I have reviewed the past 24 hour labs Labs: Laboratory Results - last 24 hr 11/23/16 11/23/16 11/23/16 11:41 16:11 20:58 WBC RBC Hgb Hct MCV MCH MCHC RDW Plt Count MPV Neut % (Auto) Lymph % (Auto) [place] % (Auto) Eos % (Auto) Baso % (Auto) Neut # (Auto) Lymph # (Auto) [place] # (Auto) Eos # (Auto) Baso # (Auto) Total Counted Immature Gran % Nucleated RBC % Immature Gran # Segmented Neutrophils Lymphocytes Monocytes Eosinophils Nucleated RBCs # Platelet Estimate Hypochromasia Ovalocytes Morphology Comment Sodium Potassium Chloride Carbon Dioxide Anion Gap BUN Creatinine GFR Calculation BUN/Creatinine Ratio Glucose POC Glucose 124 H 158 H 221 H Calculated Osmolality Calcium Magnesium 11/24/16 11/24/16 11/24/16 05:59 05:59 07:27 WBC 4.6 D RBC 4.04 Hgb 11.3 L Hct 34.2 L MCV 84.7 L MCH 28 MCHC 33.0 RDW 14.1 Plt Count 187 D MPV 11.6 Neut % (Auto) 55.2 Lymph % (Auto) 21.7 [place] % (Auto) 16.3 H Eos % (Auto) 5.7 Baso % (Auto) 0.4 Neut # (Auto) 2.5 Lymph # (Auto) 1.0 L [place] # (Auto) 0.8 Eos # (Auto) 0.3 Baso # (Auto) 0.0 Total Counted 100 Immature Gran % 0.7 Nucleated RBC % 0.0 Immature Gran # 0.03 Segmented Neutrophils 59 Lymphocytes 20 Monocytes 15 Eosinophils 6 Nucleated RBCs # 0.00 Platelet Estimate Normal Hypochromasia 1+ Ovalocytes Slight Morphology Comment Sodium 136 Potassium 4.2 Chloride 104 Carbon Dioxide 22 Anion Gap 14.2 BUN 16 Creatinine 1.20 GFR Calculation 101 BUN/Creatinine Ratio 13.00 Glucose 136 H POC Glucose 146 H Calculated Osmolality 274.0 Calcium 7.9 L Magnesium 1.9 - EKG EKG results: interpreted by me, no acute changes EKG shows: sinus rhythm Quality Measures - Stroke Symptom Onset Unknown: No I, Amaya Potter MD, personally performed the services described in this documentation, ascribed by Jeanette Manzo RN in my presence, and it is both accurate and complete .
--- NOTE | 2016-11-24 10:26 | History and Physical Update ---
Sedation H&P Update - History and Physical H&P was reviewed, the patient examined and there: are no changes in the patients condition since last H&P was completed. - Dictation Physical: refer to H&P completed by admitting physician - Physical Exam Mental Status: alert and oriented Heart: regular rate and rhythm Lung: clear to auscultation Abdomen: within normal limits Vitals: within normal limits - Sedation Plan for Sedation: moderate Patient Consent: Procedure disscussed with patient and patinet has consented., Risks and benefits were discussed with patient,including infection,, bleeding, injury to surrounding structures, seizure, temporary nerve, Patient understands and accepts potential risks/benefits and agrees to, proceed. ASA Class: IV Airway Assessment: Class I: Soft palate, uvula, fauces, pillars visible
--- NOTE | 2016-11-24 12:12 | Hospitalist Progress Note ---
Assessment and Plan (1) Dyspnea on exertion Status: Acute Assessment and plan: Cardiology attention paid to the patient is appreciated. Will await their recommendation post catheterization Current Visit: Yes (2) Obstructive sleep apnea Status: Chronic Assessment and plan: Patient is compliant with his CPAP at home will continue to use it here. Issue to have the family bring it. Current Visit: Yes (3) Sepsis secondary to UTI Status: Acute Assessment and plan: This is pansensitive E. coli which is sensitive to ampicillin. Has been on levofloxacin since admission is doing well for some positive treatment will continue that. Repeat a UA tomorrow. Current Visit: Yes (4) Hematuria Status: Acute Assessment and plan: This may be secondary to the urinary tract infection. However there is concern that the patient does have respiratory symptoms alongside renal symptoms and signs. Goodpasture's syndrome comes to mind especially in the face of patient' s age and gender Current Visit: Yes (5) CKD stage 2 due to type 2 diabetes mellitus Status: Acute Assessment and plan: Continue to monitor. Urine microscopy will be ordered. If this deteriorates nephrology should be consulted. Current Visit: Yes Hospitalist: Subjective Interval history: Patient has been seen and examined chart has been reviewed. His breathing still an issue with activity. Cardiology consultation is on the case and there is consideration for left-sided heart catheterization. Patient was admitted to the hospital with urinary tract infection is post cystoscopy days before coming in. His microbiology of the urine is E coli sensitive to ampicillin. Exam - Constitutional Vitals: Period Temp Pulse Resp BP Sys/Thao Pulse Ox Last 24 Hr 96.7 F-98.8 F 59-99 18-20 113-141/62-91 97-100 General appearance: over weight - Head Head exam: Present: normocephalic, atraumatic - Eye Eye exam: Present: EOMI Pupils: Present: ALEKSANDR - ENT ENT exam: Present: normal exam - Neck Neck exam: Present: normal inspection - Respiratory Respiratory exam: Present: clear to auscultation bilaterally - Cardiovascular Cardiovascular exam: Present: regular rate and rhythm - GI/Abdominal GI/Abdominal exam: Present: normal bowel sounds, soft - Extremities Exam Extremities exam: Present: normal inspection, full ROM - Back Exam Back exam: Present: normal inspection - Neurological Exam Neurological exam: Present: alert, oriented X3, CN II-XII intact - Psychiatric Psychiatric exam: Present: normal affect, normal mood - Skin Skin exam: Present: normal color, warm, dry Results - Labs CBC & BMP: 11/24/16 05:59 11/24/16 05:59 Lab Results: I have reviewed the past 24 hour labs Quality Measures - Stroke Symptom Onset Unknown: No
[2016-11-24 12:15] LABS: PT Patient Result 11.1 SECS; Partial Thromboplastin Time 33.4 SECS (0-40)
[2016-11-24] MEDS ORDERED: DIAZEPAM 5 MG TABLET PO ONE (12:30)
[2016-11-24] MEDS ORDERED: diphenhydrAMINE CAP 25 MG CAPSULE PO ONE (12:30)
[2016-11-24] MEDS ORDERED: SODIUM BICARBONATE 2.4 MEQ/5 ML VIAL ONE (13:46)
[2016-11-24] MEDS ORDERED: HEPARIN/NACL 0.9% 2 UNITS/ML 1,000 ML IV ONE (13:46)
[2016-11-24] MEDS ORDERED: LIDOCAINE 1% 20 ML VIAL ONE (13:46)
[2016-11-24] MEDS ORDERED: fentaNYL 100 MCG/2 ML VIAL ONE (13:53)
[2016-11-24] MEDS ORDERED: MIDAZOLAM 2 MG/2 ML VIAL ONE (13:53)
[2016-11-24] MEDS ORDERED: ONDANSETRON 4 MG/2 ML VIAL IV PRN (14:44)
[2016-11-24] MEDS ORDERED: MORPHINE 2 MG/1 ML SYRINGE IV PRN (14:44)
[2016-11-24] MEDS ORDERED: ACETAMINOPHEN/CODEINE 300-30 MG TABLET PO PRN (14:44)
--- NOTE | 2016-11-24 15:02 | Cardiology Operative Report ---
Date of Procedure:: 11/24/16 Pre-op diagnosis: JOYCE Post-op diagnosis: other (No significant coronary artery disease) Procedure: 1. Selective left and right coronary angiography. 2. Left heart catheterization with left ventriculogram. 3. Right iliac angiography to rule out vascular complications. Impression: 1. No significant coronary artery disease 2. Co-dominant coronary arteries. 3. Ejection fraction 55 %. 4. Angiographically normal right iliac artery without evidence of vascular complications. Plan: 1. Medical management. 2. Noncardiac workup if symptoms. Equipment: Diagnostic 6 Salvadorean JL4, JR4, pigtail catheters. Hemodynamics: Aortic pressure 122/65 mmHg, left ventricular pressure 127/2 mmHg, LVEDP 11 mmHg Sedation: Versed 2 mg, fentanyl 50 mcg Procedure: After informed consent was obtained the patient was prepped and draped in sterile fashion. The right groin was infiltrated with 1% lidocaine and the right femoral artery was accessed via modified Seldinger technique using a micropuncture needle and a 6 Salvadorean femoral arterial sheath was placed. All catheter exchanges were performed over a guidewire under fluoroscopic guidance. Diagnostic 6 Salv[place]orean JL4 and JR4 catheters were advanced to the left and right coronary arteries respectively and multiple cineangiograms were performed in varying degrees of obliquity and angulation. Thereafter a pigtail catheter was advanced into the left ventricle where hemodynamics were obtained followed by left ventriculogram. At conclusion of the procedure right iliac angiography was performed to rule out vascular complications. Findings: 1. The left main artery is angiographically normal. 2. The left anterior descending artery extends to the apex and wraps around. It is angiographically normal. 3. There is not an intermediate ramus branch. 4. The circumflex artery is a large vessel that seems somewhat codominant supplying some of the posterior lateral supply. It gives rise to a high first marginal artery that might be considered a ramus branch, and then a second branching marginal artery. The AV groove portion is fairly small. There is no significant atherosclerotic disease. 5. The right coronary artery is a dominant or codominant vessel. There are mild luminal irregularities but no significant stenosis. 6. Ejection fraction is 55 % with normal anterior, inferior and apical wall motion. 7. No significant mitral regurgitation. 8. No significant aortic stenosis. 9. The right iliac artery is angiographically normal without evidence of vascular complications. Contrast use: Omnipaque 85 cc Fluoro time: 2.85282 minutes Complications: None Specimens removed: none Devices implanted: none Anesthesia: moderate conscious sedation Surgeon / Physician: Amaya Potter Clay Molder: none (Joann York) Estimated blood loss: minimal Specimens: none sent Condition: stable Disposition: floor
[2016-11-24] MEDS: CARBIDOPA/LEVODOPA 25-100 MG TABLET PO SCH (17:14)
[2016-11-24] MEDS: SIMVASTATIN 40 MG TABLET PO SCH (20:23)
[2016-11-24] MEDS: LEVOFLOXACIN INJ 750 MG in PREMIX 1 EACH IV SCH (23:51)
[2016-11-25 07:15] LABS: Basophils % 0.4 % (0.0-0.8); Eosinophils # 0.2 10*3/uL (0.0-0.87); Eosinophils % 4.6 % (0.00-10.9); Hematocrit 37.7 VOL% (42.0-52.0); Immature Granulocytes % 0.6 %; Immature Granulocytes Absolute 0.03 #; Lymphocytes # 1.2 10*3/uL (1.4-4.0); Lymphocytes % 24.6 % (21.2-54.2); Mean Corpuscular HGB Conc 34.5 GM/DL (32-36); Mean Corpuscular Hemoglobin 30 PG (27-34); Mean Corpuscular Volume 85.7 FL (87-102); Mean Platelet Volume 11.2 FL (9.6-12.0); Monocytes # 0.6 10*3/uL (0.11-0.8); Monocytes % 11.9 % (1.7-12.7); Neutrophils # 2.9 10*3/uL (1.4-7.4); Neutrophils % 57.9 % (38.7-73.9); Platelet Count 219 T/CUMM (130-400); White Blood Count 5.1 T/CUMM (4-12)
[2016-11-25 07:43] LABS: Band Neutrophils 2 % (0-10); Calcium 8.7 MG/DL (8.5-10.1); Eosinophils 9 % (0-10); Hypochromasia 1+; Lymphocytes 25 % (20-55); Osmolality,Calculated 276.8 MOS/KG (273-304); Platelet Estimate Normal; Potassium 4.3 MMOL/L (3.5-5.1); Segmented Neutrophils 58 % (50-85); Total Cells Counted 100
--- NOTE | 2016-11-25 07:53 | Urology Progress Note ---
Urology - PN: Subj Interval history: Urine culture shows E. coli sensitive to all antibiotics. Continue p.o. antibiotics post discharge Exam - Constitutional Vitals: Period Temp Pulse Resp BP Sys/Thao Pulse Ox Last 24 Hr 96.7 F-98.6 F 60-99 18-20 113-190/62-108 94-99 Results - Labs CBC & BMP: 11/25/16 06:31 11/25/16 06:31
[2016-11-25] MEDS: LEVOTHYROXINE 137 MCG TABLET PO SCH (10:06)
[2016-11-25] MEDS: CARVEDILOL 6.25 MG TABLET PO SCH (10:06)
[2016-11-25] MEDS: CARBIDOPA/LEVODOPA 25-100 MG TABLET PO SCH (10:06)
[2016-11-25] MEDS: CLOPIDOGREL 75 MG TABLET PO SCH (10:07)
[2016-11-25] MEDS: INSULIN NPH 100 UNIT/ML SUBCUT SCH (10:07)
[2016-11-25] MEDS: PANTOPRAZOLE 40 MG TABLET PO SCH (10:07)
[2016-11-25] MEDS: ASPIRIN EC 325 MG TABLET PO SCH (10:07)
[2016-11-25] MEDS: SPIRONOLACTONE 25 MG TABLET PO SCH (10:07)
[2016-11-25] MEDS: INSULIN LISPRO 100 UNIT/ML SUBCUT SCH ×2 (10:08→12:36)
[2016-11-25 11:46] VITALS: BP 106/60
--- NOTE | 2016-11-25 13:27 | Discharge Summary ---
Hospital Course - Hospital Course Hospital Course: On 11/21/2016 she was admitted to the hospital through the emergency room where he presented with events of hematuria subsequent to a cystoscopy. She had had a indication of urinary tract infection since her discharge from the hospital following knee surgery a few weeks before admission. The pyuria on urine has grown sensitive E. coli. There is also concern of a lower respiratory infection because of a cough and fevers the chest x-ray was pretty much nondescript. Was relatively hypoxic and did have exertional dyspnea. The hematuria was deemed to be secondary to urinary tract infection however because there was a little pulmonary condition patient with acute kidney injury, I was concerned about possibility of immune mediated process processes like Goodpasture's so I sent out anti-basement membrane antibodies. These are still pending. On antibiotics patient has gotten better; his blood cultures were negative. Patient was also consulted Dr. Schmidt who actually follows with him as an outpatient. He agreed with the workup and management as of now. Vitals informed me that this gentleman does have history of hyperaldosteronism status post adrenal surgery years ago to manage this. 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 Because of progressive exercise intolerance patient was consulted to urology. This saw him yesterday and he went [employer]. Selective catheterization did not find any significant disease. He does have hypercholesterolemia and has had TIAs in the past. Is on cholesterol medications is also on clopidogrel and for some reason was using full dose aspirin. She will be using a baby aspirin. This has been corrected. In the hospital he also seen by Dr. Palomares in follow-up for his urologic problems. Dr. Kim had done a cystoscopy prior to his admission. General condition has been made with progressive improvement in his respiratory status. Is not having any fevers anymore. His urine is cleared up. Because he did have a combination of respiratory infection and this UTI with E. coli however rather broaden his coverage with levofloxacin by mouth go home on this for 7 days. This was antibiotic that was used here intravenously. She dilated primary care physician if he develops diarrhea. Should he develop fevers again or shortness of breath or dysuria workup for infection and sepsis should be revisited. Patient is doing well enough to be discharged and will be going home today. Diagnosis - Discharge Diagnosis (1) Dyspnea on exertion Status: Acute (2) Obstructive sleep apnea Status: Chronic (3) Sepsis secondary to UTI Status: Acute (4) Hematuria Status: Acute (5) CKD stage 2 due to type 2 diabetes mellitus Status: Acute Specialty Discharge - Follow Up or Referrals Follow up with: Marcin Villalobos MD [Physician] - 1 Week (Follow-up appointment with Dr. Villalobos at [facility] clinic 1 week after discharge for groin check, EKG, BMP.) Mike Schmidt MD [Primary Care Provider] - (1-2 weeks) Discharge Plan - Discharge Data Disposition: Disch To Home/Self Care Condition at Discharge: Stable Discharge Diet: heart healthy Activity: resume usual activities as tolerated Hygiene: no restrictions Weight Bearing at Discharge: full weight bearing Driving: no restrictions Contact your physician if you experience:: fever over 101, Difficulty voiding, Nausea/Vomiting, Shortness of breath, pain uncontrolled by pain medications - Discharge Medications New Aspirin [Aspirin EC] 81 mg PO DAILY #30 tablet.dr Mendoza Bumetanide Tab [Bumex Tab] 1 mg PO DAILY Levothyroxine Tab [Synthroid Tab] 0.137 mg PO DAILY Insulin NPH Hum/Reg Insulin Hm [NovoLIN 70/30] 50 unit SUBCUT BID W/MEALS Glimepiride [Amaryl] 1 mg PO DAILY W/BREAKFAST Carvedilol [Coreg] 6.25 mg PO BID Potassium Chloride 10 meq PO DAILY Spironolactone 25 mg PO DAILY Simvastatin 40 mg PO BEDTIME Carbidopa/Levodopa [Carbidopa-Levo 25-100 mg Odt] 25 - 100 tablet PO DAILY Omeprazole 20 mg PO DAILY Clopidogrel [Plavix] 75 mg PO DAILY Discontinued Aspirin EC Tab 325 mg PO DAILY #30 tablet - Follow Up or Referral Follow Up: Marcin Villalobos MD [Physician] - 1 Week (Follow-up appointment with Dr. Villalobos at [facility] 1 week after discharge for groin check, EKG, BMP.) Mike Schmidt MD [Primary Care Provider] - (1-2 weeks) - Forms/Instructions Exam - Constitutional Vitals: Period Temp Pulse Resp BP Sys/Thao Pulse Ox Last 24 Hr 96.5 F-98.6 F 60-70 18-20 106-190/60-108 94-98 General appearance: over weight - Head Head exam: Present: normocephalic, atraumatic - Eye Eye exam: Present: EOMI Pupils: Present: ALEKSANDR - ENT ENT exam: Present: normal exam, normal oropharynx - Neck Neck exam: Present: normal inspection - Respiratory Respiratory exam: Present: clear to auscultation bilaterally - Cardiovascular Cardiovascular exam: Present: regular rate and rhythm - GI/Abdominal GI/Abdominal exam: Present: normal bowel sounds, soft - Extremities Exam Extremities exam: Present: normal inspection, normal capillary refill, full ROM - Back Exam Back exam: Present: normal inspection - Neurological Exam Neurological exam: Present: alert, oriented X3, CN II-XII intact - Psychiatric Psychiatric exam: Present: normal affect, normal mood - Skin Skin exam: Present: normal color, warm, dry Discharge Results Procedures and tests throughout hospitalization: Pending Orders 11/21/16 23:58 Blood Culture Stat Labs on day of discharge: Labs from last 24 hours 11/25/16 11/25/16 11/25/16 11:26 07:22 06:31 WBC RBC Hgb Hct MCV MCH MCHC RDW Plt Count MPV Neut % (Auto) Lymph % (Auto) [place] % (Auto) Eos % (Auto) Baso % (Auto) Neut # (Auto) Lymph # (Auto) [place] # (Auto) Eos # (Auto) Baso # (Auto) Total Counted Immature Gran % Nucleated RBC % Immature Gran # Segmented Neutrophils Band Neutrophils Lymphocytes Monocytes Eosinophils Nucleated RBCs # Platelet Estimate Hypochromasia Morphology Comment Sodium 137 Potassium 4.3 Chloride 104 Carbon Dioxide 21 Anion Gap 16.3 H BUN 14 Creatinine 1.30 GFR Calculation 92 BUN/Creatinine Ratio 10.00 Glucose 145 H POC Glucose 167 H 148 H Calculated Osmolality 276.8 Calcium 8.7 Glomerular Base Mem IgG 11/25/16 11/24/16 11/24/16 06:31 20:19 15:32 WBC 5.1 RBC 4.40 Hgb 13.0 L Hct 37.7 L MCV 85.7 L MCH 30 MCHC 34.5 RDW 14.0 Plt Count 219 MPV 11.2 Neut % (Auto) 57.9 Lymph % (Auto) 24.6 [place] % (Auto) 11.9 Eos % (Auto) 4.6 Baso % (Auto) 0.4 Neut # (Auto) 2.9 Lymph # (Auto) 1.2 L [place] # (Auto) 0.6 Eos # (Auto) 0.2 Baso # (Auto) 0.0 Total Counted 100 Immature Gran % 0.6 Nucleated RBC % 0.0 Immature Gran # 0.03 Segmented Neutrophils 58 Band Neutrophils 2 Lymphocytes 25 Monocytes 6 Eosinophils 9 Nucleated RBCs # 0.00 Platelet Estimate Normal Hypochromasia 1+ Morphology Comment Sodium Potassium Chloride Carbon Dioxide Anion Gap BUN Creatinine GFR Calculation BUN/Creatinine Ratio Glucose POC Glucose 275 H 76 Calculated Osmolality Calcium Glomerular Base Mem IgG 11/22/16 08:26 WBC RBC Hgb Hct MCV MCH MCHC RDW Plt Count MPV Neut % (Auto) Lymph % (Auto) [place] % (Auto) Eos % (Auto) Baso % (Auto) Neut # (Auto) Lymph # (Auto) [place] # (Auto) Eos # (Auto) Baso # (Auto) Total Counted Immature Gran % Nucleated RBC % Immature Gran # Segmented Neutrophils Band Neutrophils Lymphocytes Monocytes Eosinophils Nucleated RBCs # Platelet Estimate Hypochromasia Morphology Comment Sodium Potassium Chloride Carbon Dioxide Anion Gap BUN Creatinine GFR Calculation BUN/Creatinine Ratio Glucose POC Glucose Calculated Osmolality Calcium Glomerular Base Mem IgG < 0.2 Preliminary micro results at discharge 11/22/16 00:49 Blood Culture - Preliminary Blood No growth at 3 days 11/22/16 00:49 Blood Culture - Preliminary Blood No growth at 3 days DS: Provider Date of admission: 11/21/16 22:01 Primary care physician: Mike Schmidt MD Attending physician on admission: Victoriano Farias MD Consults: 11/23/16 09:57 Consult to Physician [CONS] Routine Comment: Consulting Provider: Marcin Villalobos Person Notified: Adolfo Date Notified: 11/23/16 Time Notified: 09:59 11/23/16 10:01 Consult to Physician [CONS] Routine Comment: Consulting Provider: Mike Schmidt Person Notified: Adrienne Date Notified: 11/23/16 Time Notified: 10:03 11/23/16 10:04 Consult to Physician [CONS] Routine Comment: Consulting Provider: Damien Palomares Person Notified: [place] Date Notified: 11/23/16 Time Notified: 10:11 Discharging clinician: Lui Will MD
[2016-11-25] MEDS ORDERED: LEVOFLOXACIN 750 MG TABLET PO SCH (21:00)
== END 2016-11-25 14:28 | disposition home or self-care (01) | DRG 872 ==
LOC: N.ED 19:11 → N.EDINP 22:01 → SUATTDRO 22:01 → N.5E 22:32
PROVIDERS: ADMIT Student in an Organized Health Care Education/Training Program; ATTEND Internal Medicine Infectious Disease
PROC: CLCCHCL (ICD-10-PCS; 2016-11-24 13:45)

== ENCOUNTER 2017-04-18 23:50 | Inpatient (IN) ==
[2017-04-19] MEDS ORDERED: HYDROmorphone 2 MG/1 ML VIAL IV STA (00:35)
[2017-04-19] MEDS ORDERED: ONDANSETRON 4 MG/2 ML VIAL IV STA (00:35)
[2017-04-19] MEDS ORDERED: ONDANSETRON 4 MG/2 ML VIAL ONE (00:36)
[2017-04-19] MEDS ORDERED: HYDROmorphone 2 MG/1 ML VIAL ONE ×2 (00:37→04:52)
[2017-04-19 00:58] LABS: Basophils # 0.1 10*3/uL (0.0-0.2); Basophils % 0.7 % (0.0-0.8); Eosinophils # 0.2 10*3/uL (0.0-0.87); Eosinophils % 2.5 % (0.00-10.9); Hematocrit 34.3 VOL% (42.0-52.0); Hemoglobin 11.8 GM/DL (14.0-18.0); Immature Granulocytes % 0.3 %; Immature Granulocytes Absolute 0.02 #; Lymphocytes # 1.5 10*3/uL (1.4-4.0); Lymphocytes % 21.4 % (21.2-54.2); Mean Corpuscular HGB Conc 34.4 GM/DL (32-36); Mean Corpuscular Hemoglobin 29 PG (27-34); Mean Corpuscular Volume 85.3 FL (87-102); Mean Platelet Volume 11.3 FL (9.6-12.0); Monocytes # 0.7 10*3/uL (0.11-0.8); Monocytes % 10.6 % (1.7-12.7); Neutrophils # 4.4 10*3/uL (1.4-7.4); Neutrophils % 64.5 % (38.7-73.9); Platelet Count 211 T/CUMM (130-400); Red Blood Count 4.02 MC/CUMM (3.8-5.5); Red Cell Distribution Width 12.9 % (9.3-17.3); White Blood Count 6.8 T/CUMM (4-12)
[2017-04-19 01:26] LABS: Alanine Aminotransferase < 9 U/L (16-61); Albumin 3.7 G/DL (3.4-5.0); Alkaline Phosphatase 115 U/L (45-117); Aspartate Amino Transferase 18 U/L (0-37); Bilirubin,Total < 0.39 MG/DL (0.2-1.0); Blood Urea Nitrogen 36 MG/DL (7-18); Calcium 8.7 MG/DL (8.5-10.1); Glucose 163 MG/DL (74-106); Osmolality,Calculated 279.2 MOS/KG (273-304); Potassium 4.5 MMOL/L (3.5-5.1); Sodium 134 MMOL/L (136-145); Total Protein 7.8 G/DL (6.4-8.3)
[2017-04-19] MEDS ORDERED: DEXTROSE 50% 25 GM/50 ML VIAL IV PRN (03:59)
[2017-04-19] MEDS ORDERED: GLUCAGON 1 MG VIAL IM PRN (03:59)
[2017-04-19 04:15] LABS: PT Patient Result 10.2 SECS
[2017-04-19] MEDS: HYDROmorphone 2 MG/1 ML VIAL IV PRN ×3 (05:46→22:28)
[2017-04-19] MEDS: LEVOTHYROXINE 137 MCG TABLET PO SCH (06:19)
[2017-04-19] MEDS: INSULIN LISPRO 100 UNIT/ML SUBCUT SCH ×4 (07:32→20:57)
[2017-04-19] MEDS: INSULIN NPH/REGULAR 70/30 100 UNIT/ML SUBCUT SCH ×2 (07:32→17:13)
[2017-04-19] MEDS: TAMSULOSIN 0.4 MG CAPSULE PO SCH (08:31)
[2017-04-19] MEDS: GLIMEPIRIDE 2 MG TABLET PO SCH (08:31)
[2017-04-19] MEDS: SPIRONOLACTONE 25 MG TABLET PO SCH (08:31)
[2017-04-19] MEDS: PANTOPRAZOLE 40 MG TABLET PO SCH (08:31)
[2017-04-19] MEDS: POTASSIUM CHLORIDE 10 MEQ TABLET PO SCH (08:31)
[2017-04-19] MEDS: FINASTERIDE 5 MG TABLET PO SCH (08:31)
[2017-04-19] MEDS: FUROSEMIDE 40 MG TABLET PO SCH (08:31)
[2017-04-19] MEDS: CARVEDILOL 6.25 MG TABLET PO SCH ×2 (08:31→20:54)
[2017-04-19] MEDS: ONDANSETRON 4 MG/2 ML VIAL IV PRN ×2 (09:02→16:08)
[2017-04-19] MEDS ORDERED: HYDROmorphone 2 MG/1 ML VIAL IV PRN (10:38)
[2017-04-19] MEDS ORDERED: fentaNYL 25 MCG/HR PATCH TRANSDERM SCH (11:00)
[2017-04-19] MEDS: SODIUM CHLORIDE 0.45% 1,000 ML IV SCH ×2 (12:14→20:53)
[2017-04-19] MEDS: CARBIDOPA/LEVODOPA 25-100 MG TABLET PO SCH (20:54)
[2017-04-19] MEDS: SIMVASTATIN 40 MG TABLET PO SCH (20:54)
[2017-04-20] MEDS: HYDROmorphone 2 MG/1 ML VIAL IV PRN (04:26)
[2017-04-20] MEDS: LEVOTHYROXINE 137 MCG TABLET PO SCH (06:00)
[2017-04-20] MEDS: SODIUM CHLORIDE 0.45% 1,000 ML IV SCH (06:13)
[2017-04-20 07:01] LABS: Basophils % 0.4 % (0.0-0.8); Eosinophils # 0.1 10*3/uL (0.0-0.87); Eosinophils % 0.9 % (0.00-10.9); Hematocrit 35.4 VOL% (42.0-52.0); Hemoglobin 12.1 GM/DL (14.0-18.0); Immature Granulocytes % 0.4 %; Immature Granulocytes Absolute 0.03 #; Lymphocytes # 1.2 10*3/uL (1.4-4.0); Lymphocytes % 14.1 % (21.2-54.2); Mean Corpuscular HGB Conc 34.2 GM/DL (32-36); Mean Corpuscular Hemoglobin 29 PG (27-34); Mean Corpuscular Volume 84.3 FL (87-102); Mean Platelet Volume 11.6 FL (9.6-12.0); Monocytes % 11.2 % (1.7-12.7); Neutrophils # 6.2 10*3/uL (1.4-7.4); Platelet Count 216 T/CUMM (130-400); Red Cell Distribution Width 12.8 % (9.3-17.3); White Blood Count 8.5 T/CUMM (4-12)
[2017-04-20 07:42] LABS: Calcium 8.7 MG/DL (8.5-10.1); Osmolality,Calculated 263.8 MOS/KG (273-304); Potassium 4.6 MMOL/L (3.5-5.1)
[2017-04-20] MEDS: INSULIN LISPRO 100 UNIT/ML SUBCUT SCH ×4 (07:55→20:35)
[2017-04-20] MEDS: SPIRONOLACTONE 25 MG TABLET PO SCH (08:10)
[2017-04-20] MEDS: TAMSULOSIN 0.4 MG CAPSULE PO SCH (08:10)
[2017-04-20] MEDS: PANTOPRAZOLE 40 MG TABLET PO SCH (08:10)
[2017-04-20] MEDS: INSULIN NPH/REGULAR 70/30 100 UNIT/ML SUBCUT SCH ×2 (08:10→17:08)
[2017-04-20] MEDS: POTASSIUM CHLORIDE 10 MEQ TABLET PO SCH (08:10)
[2017-04-20] MEDS: FUROSEMIDE 40 MG TABLET PO SCH (08:10)
[2017-04-20] MEDS: FINASTERIDE 5 MG TABLET PO SCH (08:10)
[2017-04-20] MEDS: GLIMEPIRIDE 2 MG TABLET PO SCH (08:10)
[2017-04-20] MEDS: CARVEDILOL 6.25 MG TABLET PO SCH ×2 (08:10→20:36)
[2017-04-20] MEDS: MAGNESIUM HYDROXIDE SUSP 30 ML UDCUP PO PRN (10:34)
[2017-04-20] MEDS ORDERED: LACTULOSE 20 GM/30 ML UDCUP PO PRN (19:17)
[2017-04-20] MEDS: SIMVASTATIN 40 MG TABLET PO SCH (20:36)
[2017-04-20] MEDS: CARBIDOPA/LEVODOPA 25-100 MG TABLET PO SCH (20:36)
[2017-04-21] MEDS ORDERED: FUROSEMIDE 20 MG/2 ML VIAL IV ONE (03:02)
[2017-04-21] MEDS: SODIUM CHLORIDE 0.45% 1,000 ML IV SCH (03:40)
[2017-04-21] MEDS: SODIUM CHLORIDE 0.9% 1,000 ML IV SCH ×3 (03:43→18:51)
[2017-04-21 07:08] LABS: Basophils % 0.4 % (0.0-0.8); Eosinophils # 0.1 10*3/uL (0.0-0.87); Eosinophils % 0.8 % (0.00-10.9); Hematocrit 36.9 VOL% (42.0-52.0); Hemoglobin 13.1 GM/DL (14.0-18.0); Immature Granulocytes % 0.2 %; Immature Granulocytes Absolute 0.02 #; Lymphocytes # 1.2 10*3/uL (1.4-4.0); Lymphocytes % 14.7 % (21.2-54.2); Mean Corpuscular HGB Conc 35.5 GM/DL (32-36); Mean Corpuscular Hemoglobin 29 PG (27-34); Mean Corpuscular Volume 82.9 FL (87-102); Monocytes # 1.1 10*3/uL (0.11-0.8); Monocytes % 13.3 % (1.7-12.7); Neutrophils # 5.8 10*3/uL (1.4-7.4); Neutrophils % 70.6 % (38.7-73.9); Platelet Count 221 T/CUMM (130-400); Red Blood Count 4.45 MC/CUMM (3.8-5.5); Red Cell Distribution Width 12.6 % (9.3-17.3); White Blood Count 8.2 T/CUMM (4-12)
[2017-04-21 07:40] LABS: Calcium 8.8 MG/DL (8.5-10.1); Osmolality,Calculated 263.1 MOS/KG (273-304); Potassium 4.8 MMOL/L (3.5-5.1)
[2017-04-21] MEDS: INSULIN NPH/REGULAR 70/30 100 UNIT/ML SUBCUT SCH ×2 (09:14→16:52)
[2017-04-21] MEDS: LEVOTHYROXINE 137 MCG TABLET PO SCH (09:15)
[2017-04-21] MEDS: TAMSULOSIN 0.4 MG CAPSULE PO SCH (09:15)
[2017-04-21] MEDS: FUROSEMIDE 40 MG TABLET PO SCH (09:15)
[2017-04-21] MEDS: FINASTERIDE 5 MG TABLET PO SCH (09:15)
[2017-04-21] MEDS: PANTOPRAZOLE 40 MG TABLET PO SCH (09:15)
[2017-04-21] MEDS: GLIMEPIRIDE 2 MG TABLET PO SCH (09:15)
[2017-04-21] MEDS: INSULIN LISPRO 100 UNIT/ML SUBCUT SCH ×4 (09:15→21:08)
[2017-04-21] MEDS: CARVEDILOL 6.25 MG TABLET PO SCH ×2 (09:15→20:33)
[2017-04-21] MEDS: POTASSIUM CHLORIDE 10 MEQ TABLET PO SCH (09:16)
[2017-04-21] MEDS ORDERED: FUROSEMIDE 40 MG/4 ML VIAL IV ONE (16:13)
[2017-04-21] MEDS: HYDROmorphone 2 MG/1 ML VIAL IV PRN (20:32)
[2017-04-21] MEDS: CARBIDOPA/LEVODOPA 25-100 MG TABLET PO SCH (20:33)
[2017-04-21] MEDS: SIMVASTATIN 40 MG TABLET PO SCH (20:33)
[2017-04-22] MEDS ORDERED: LEVOFLOXACIN INJ 500 MG in PREMIX 1 EACH IV ONE (05:00)
[2017-04-22] MEDS ORDERED: FAMOTIDINE 20 MG TABLET PO ONE (05:34)
[2017-04-22] MEDS: HYDROmorphone 2 MG/1 ML VIAL IV PRN (06:04)
[2017-04-22 07:20] LABS: Basophils % 0.5 % (0.0-0.8); Eosinophils # 0.1 10*3/uL (0.0-0.87); Eosinophils % 0.6 % (0.00-10.9); Hemoglobin 11.5 GM/DL (14.0-18.0); Immature Granulocytes % 0.4 %; Immature Granulocytes Absolute 0.03 #; Lymphocytes # 1.3 10*3/uL (1.4-4.0); Lymphocytes % 15.6 % (21.2-54.2); Mean Corpuscular HGB Conc 34.8 GM/DL (32-36); Mean Corpuscular Hemoglobin 29 PG (27-34); Mean Corpuscular Volume 82.9 FL (87-102); Monocytes # 1.1 10*3/uL (0.11-0.8); Monocytes % 13.5 % (1.7-12.7); Neutrophils # 5.6 10*3/uL (1.4-7.4); Neutrophils % 69.4 % (38.7-73.9); Platelet Count 213 T/CUMM (130-400); Red Blood Count 3.98 MC/CUMM (3.8-5.5); Red Cell Distribution Width 12.9 % (9.3-17.3); White Blood Count 8.1 T/CUMM (4-12)
[2017-04-22] MEDS: INSULIN LISPRO 100 UNIT/ML SUBCUT SCH ×4 (07:30→22:53)
[2017-04-22] MEDS: INSULIN NPH/REGULAR 70/30 100 UNIT/ML SUBCUT SCH ×2 (07:30→17:49)
[2017-04-22] MEDS ORDERED: LIDOCAINE 2% TOP JELLY 20 ML VIAL INTRAURETH ONE (07:59)
[2017-04-22] MEDS ORDERED: PROPOFOL 200 MG/20 ML VIAL IV ONE (08:11)
[2017-04-22] MEDS ORDERED: MIDAZOLAM 2 MG/2 ML VIAL ONE (08:12)
[2017-04-22] MEDS ORDERED: PHENYLEPHRINE 50 MG/5 ML VIAL ONE (08:12)
[2017-04-22] MEDS ORDERED: fentaNYL 100 MCG/2 ML VIAL ONE (08:12)
[2017-04-22] MEDS ORDERED: SEVOFLURANE 1 UNIT/15 MINUTE INH ONE (08:12)
[2017-04-22 08:15] LABS: Calcium 8.7 MG/DL (8.5-10.1); Osmolality,Calculated 271.8 MOS/KG (273-304); Potassium 4.6 MMOL/L (3.5-5.1)
[2017-04-22 08:23] LABS: Bilirubin,Total 0.6 MG/DL (0.2-1.0); Calcium 8.8 MG/DL (8.5-10.1); Osmolality,Calculated 271.8 MOS/KG (273-304); Potassium 4.6 MMOL/L (3.5-5.1); Total Protein 7.4 G/DL (6.4-8.3)
[2017-04-22] MEDS ORDERED: SODIUM CHLORIDE 0.9% 1,000 ML IV SCH (08:30)
[2017-04-22] MEDS: TAMSULOSIN 0.4 MG CAPSULE PO SCH (10:55)
[2017-04-22] MEDS: FINASTERIDE 5 MG TABLET PO SCH (10:55)
[2017-04-22] MEDS: GLIMEPIRIDE 2 MG TABLET PO SCH (10:56)
[2017-04-22] MEDS: PANTOPRAZOLE 40 MG TABLET PO SCH (10:56)
[2017-04-22] MEDS: LEVOTHYROXINE 137 MCG TABLET PO SCH (10:56)
[2017-04-22] MEDS: POTASSIUM CHLORIDE 10 MEQ TABLET PO SCH (10:56)
[2017-04-22] MEDS: CARVEDILOL 6.25 MG TABLET PO SCH ×2 (10:56→21:02)
[2017-04-22] MEDS: FUROSEMIDE 40 MG TABLET PO SCH (10:57)
[2017-04-22] MEDS: FUROSEMIDE 40 MG/4 ML VIAL IV SCH (10:57)
[2017-04-22] MEDS: SODIUM CHLORIDE 0.9% 1,000 ML IV SCH ×2 (10:57→22:18)
[2017-04-22] MEDS: SIMVASTATIN 40 MG TABLET PO SCH (21:02)
[2017-04-22] MEDS: CARBIDOPA/LEVODOPA 25-100 MG TABLET PO SCH (21:02)
[2017-04-23] MEDS: LEVOTHYROXINE 137 MCG TABLET PO SCH (06:32)
[2017-04-23 07:34] LABS: Basophils % 0.4 % (0.0-0.8); Eosinophils # 0.1 10*3/uL (0.0-0.87); Hematocrit 30.8 VOL% (42.0-52.0); Hemoglobin 10.6 GM/DL (14.0-18.0); Immature Granulocytes % 0.3 %; Immature Granulocytes Absolute 0.02 #; Lymphocytes # 1.1 10*3/uL (1.4-4.0); Lymphocytes % 15.5 % (21.2-54.2); Mean Corpuscular HGB Conc 34.4 GM/DL (32-36); Mean Corpuscular Hemoglobin 29 PG (27-34); Mean Corpuscular Volume 84.6 FL (87-102); Mean Platelet Volume 12.2 FL (9.6-12.0); Monocytes # 0.9 10*3/uL (0.11-0.8); Monocytes % 13.1 % (1.7-12.7); Neutrophils # 4.8 10*3/uL (1.4-7.4); Neutrophils % 68.7 % (38.7-73.9); Platelet Count 189 T/CUMM (130-400); Red Blood Count 3.64 MC/CUMM (3.8-5.5); Red Cell Distribution Width 13.1 % (9.3-17.3)
[2017-04-23 08:01] LABS: Alanine Aminotransferase < 6 U/L (16-61); Albumin 2.6 G/DL (3.4-5.0); Alkaline Phosphatase 114 U/L (45-117); Aspartate Amino Transferase 22 U/L (0-37); Blood Urea Nitrogen 37 MG/DL (7-18); Calcium 7.9 MG/DL (8.5-10.1); Glucose 140 MG/DL (74-106); Osmolality,Calculated 276.4 MOS/KG (273-304); Potassium 4.7 MMOL/L (3.5-5.1); Sodium 133 MMOL/L (136-145); Total Protein 6.6 G/DL (6.4-8.3)
[2017-04-23] MEDS: INSULIN LISPRO 100 UNIT/ML SUBCUT SCH ×4 (09:13→21:52)
[2017-04-23] MEDS: POTASSIUM CHLORIDE 10 MEQ TABLET PO SCH (09:14)
[2017-04-23] MEDS: GLIMEPIRIDE 2 MG TABLET PO SCH (09:14)
[2017-04-23] MEDS: FUROSEMIDE 40 MG TABLET PO SCH (09:14)
[2017-04-23] MEDS: PANTOPRAZOLE 40 MG TABLET PO SCH (09:14)
[2017-04-23] MEDS: FUROSEMIDE 40 MG/4 ML VIAL IV SCH (09:14)
[2017-04-23] MEDS: INSULIN GLARGINE 100 UNIT/ML SUBCUT SCH (09:14)
[2017-04-23] MEDS: CARVEDILOL 6.25 MG TABLET PO SCH ×2 (09:14→20:46)
[2017-04-23] MEDS: TAMSULOSIN 0.4 MG CAPSULE PO SCH (09:14)
[2017-04-23] MEDS: FINASTERIDE 5 MG TABLET PO SCH (09:14)
[2017-04-23] MEDS: INSULIN NPH/REGULAR 70/30 100 UNIT/ML SUBCUT SCH ×2 (09:15→16:31)
[2017-04-23] MEDS ORDERED: FUROSEMIDE 40 MG/4 ML VIAL IV ONE (09:19)
[2017-04-23] MEDS: HYDROmorphone 2 MG/1 ML VIAL IV PRN (15:54)
[2017-04-23] MEDS: CARBIDOPA/LEVODOPA 25-100 MG TABLET PO SCH (20:33)
[2017-04-23] MEDS: SIMVASTATIN 40 MG TABLET PO SCH (20:46)
[2017-04-23] MEDS: BACLOFEN 10 MG TABLET PO SCH (21:52)
[2017-04-24 06:16] LABS: Calcium 8.5 MG/DL (8.5-10.1); Osmolality,Calculated 272.7 MOS/KG (273-304); Potassium 4.5 MMOL/L (3.5-5.1)
[2017-04-24] MEDS: LEVOTHYROXINE 137 MCG TABLET PO SCH (06:41)
[2017-04-24] MEDS: INSULIN NPH/REGULAR 70/30 100 UNIT/ML SUBCUT SCH ×2 (09:09→17:26)
[2017-04-24] MEDS: INSULIN GLARGINE 100 UNIT/ML SUBCUT SCH (09:10)
[2017-04-24] MEDS: INSULIN LISPRO 100 UNIT/ML SUBCUT SCH ×4 (09:10→21:22)
[2017-04-24] MEDS: FINASTERIDE 5 MG TABLET PO SCH (09:11)
[2017-04-24] MEDS: CARVEDILOL 6.25 MG TABLET PO SCH ×2 (09:12→21:22)
[2017-04-24] MEDS: TAMSULOSIN 0.4 MG CAPSULE PO SCH (09:12)
[2017-04-24] MEDS: PANTOPRAZOLE 40 MG TABLET PO SCH (09:13)
[2017-04-24] MEDS: BACLOFEN 10 MG TABLET PO SCH ×3 (09:13→21:22)
[2017-04-24] MEDS: POTASSIUM CHLORIDE 10 MEQ TABLET PO SCH (09:13)
[2017-04-24] MEDS: GLIMEPIRIDE 2 MG TABLET PO SCH (09:22)
[2017-04-24] MEDS ORDERED: ALBUTEROL/IPRATROPIUM 3 ML NEB RESP TX PRN (11:39)
[2017-04-24] MEDS: FUROSEMIDE 40 MG/4 ML VIAL IV SCH (12:48)
[2017-04-24] MEDS: FUROSEMIDE 40 MG TABLET PO SCH (12:49)
[2017-04-24] MEDS: SIMVASTATIN 40 MG TABLET PO SCH (21:22)
[2017-04-24] MEDS: CARBIDOPA/LEVODOPA 25-100 MG TABLET PO SCH (21:22)
[2017-04-25 06:47] LABS: Calcium 9.1 MG/DL (8.5-10.1); Osmolality,Calculated 272.5 MOS/KG (273-304); Potassium 4.5 MMOL/L (3.5-5.1)
[2017-04-25] MEDS: BACLOFEN 10 MG TABLET PO SCH ×3 (08:15→21:08)
[2017-04-25] MEDS: TAMSULOSIN 0.4 MG CAPSULE PO SCH (08:17)
[2017-04-25] MEDS: PANTOPRAZOLE 40 MG TABLET PO SCH (08:17)
[2017-04-25] MEDS: LEVOTHYROXINE 137 MCG TABLET PO SCH (08:18)
[2017-04-25] MEDS: CARVEDILOL 6.25 MG TABLET PO SCH ×2 (08:18→21:08)
[2017-04-25] MEDS: POTASSIUM CHLORIDE 10 MEQ TABLET PO SCH (08:18)
[2017-04-25] MEDS: FINASTERIDE 5 MG TABLET PO SCH (08:18)
[2017-04-25] MEDS: GLIMEPIRIDE 2 MG TABLET PO SCH (08:18)
[2017-04-25] MEDS: INSULIN NPH/REGULAR 70/30 100 UNIT/ML SUBCUT SCH ×2 (08:19→17:15)
[2017-04-25] MEDS: FUROSEMIDE 40 MG/4 ML VIAL IV SCH (08:19)
[2017-04-25] MEDS: INSULIN GLARGINE 100 UNIT/ML SUBCUT SCH (08:20)
[2017-04-25] MEDS ORDERED: FUROSEMIDE 40 MG/4 ML VIAL IV SCH (10:08)
[2017-04-25] MEDS: INSULIN LISPRO 100 UNIT/ML SUBCUT SCH ×4 (10:30→21:08)
[2017-04-25] MEDS: MAGNESIUM HYDROXIDE SUSP 30 ML UDCUP PO PRN (11:15)
[2017-04-25] MEDS: SIMVASTATIN 40 MG TABLET PO SCH (21:08)
[2017-04-25] MEDS: CARBIDOPA/LEVODOPA 25-100 MG TABLET PO SCH (21:10)
[2017-04-26 06:45] LABS: Calcium 8.9 MG/DL (8.5-10.1); Osmolality,Calculated 277.4 MOS/KG (273-304); Potassium 4.7 MMOL/L (3.5-5.1)
[2017-04-26] MEDS: LEVOTHYROXINE 137 MCG TABLET PO SCH (07:08)
[2017-04-26] MEDS: INSULIN NPH/REGULAR 70/30 100 UNIT/ML SUBCUT SCH ×2 (08:18→16:25)
[2017-04-26] MEDS: INSULIN LISPRO 100 UNIT/ML SUBCUT SCH ×3 (08:18→16:19)
[2017-04-26] MEDS: GLIMEPIRIDE 2 MG TABLET PO SCH (08:19)
[2017-04-26] MEDS: TAMSULOSIN 0.4 MG CAPSULE PO SCH (08:20)
[2017-04-26] MEDS: BACLOFEN 10 MG TABLET PO SCH ×2 (08:20→15:14)
[2017-04-26] MEDS: POTASSIUM CHLORIDE 10 MEQ TABLET PO SCH (08:20)
[2017-04-26] MEDS: FINASTERIDE 5 MG TABLET PO SCH (08:20)
[2017-04-26] MEDS: INSULIN GLARGINE 100 UNIT/ML SUBCUT SCH (08:20)
[2017-04-26] MEDS: CARVEDILOL 6.25 MG TABLET PO SCH (08:20)
[2017-04-26] MEDS: PANTOPRAZOLE 40 MG TABLET PO SCH (08:20)
[2017-04-26 16:24] VITALS: BP 126/59
== END 2017-04-26 16:36 | disposition home or self-care (01) | DRG 920 ==
LOC: N.EDINP 23:50 → N.ED 23:50 → SUATTDRO 04-19 03:46 → N.5E 04-19 04:24
PROVIDERS: ADMIT Internal Medicine; ATTEND Internal Medicine

== ENCOUNTER 2017-06-15 05:37 | Inpatient (IN) ==
[2017-06-02 13:36] LABS: Basophils % 0.6 % (0.0-0.8); Eosinophils # 0.3 10*3/uL (0.0-0.87); Eosinophils % 5.7 % (0.00-10.9); Hematocrit 30.1 VOL% (42.0-52.0); Hemoglobin 10.2 GM/DL (14.0-18.0); Immature Granulocytes % 0.2 %; Immature Granulocytes Absolute 0.01 #; Lymphocytes # 1.5 10*3/uL (1.4-4.0); Lymphocytes % 29.4 % (21.2-54.2); Mean Corpuscular HGB Conc 33.9 GM/DL (32-36); Mean Corpuscular Hemoglobin 29 PG (27-34); Mean Corpuscular Volume 86.2 FL (87-102); Mean Platelet Volume 10.9 FL (9.6-12.0); Monocytes # 0.4 10*3/uL (0.11-0.8); Neutrophils # 2.9 10*3/uL (1.4-7.4); Neutrophils % 56.1 % (38.7-73.9); Platelet Count 196 T/CUMM (130-400); Red Blood Count 3.49 MC/CUMM (3.8-5.5); Red Cell Distribution Width 13.9 % (9.3-17.3); White Blood Count 5.1 T/CUMM (4-12)
[2017-06-02 14:20] LABS: Calcium 8.3 MG/DL (8.5-10.1); Osmolality,Calculated 278.8 MOS/KG (273-304); Potassium 4.6 MMOL/L (3.5-5.1)
[2017-06-02 14:59] LABS: Apearance,Urine Slightly Hazy (Clear); Bilirubin,Urine Negative (Negative); Blood, Urine Large mg/dL (Negative); Glucose,Urine (UA) Negative (Negative); Ketones,Urine Negative (Negative); Mucus,Urine Occasional /LPF (Occasional); Nitrite,Urine Negative (Negative); Protein,Urine 30 MG/DL; RBC,Urine 655 /HPF (0-4); Squamous Epithelial Cell,Urine Occasional /HPF (0-10); Urine Color Yellow (Yellow); Urine Specific Gravity 1.018 (1.001-1.035); WBC,Urine 42 /HPF (0-6)
[~2017-06-15 05:37] MED LIST: ACETAMINOPHEN 325 MG TABLET PO PRN; DEXTROSE 50% 25 GM/50 ML VIAL IV PRN; GLUCAGON 1 MG VIAL IM PRN; ONDANSETRON 4 MG/2 ML VIAL IV PRN
[2017-06-15] MEDS ORDERED: ALVIMOPAN 12 MG CAPSULE ONE (06:21)
[2017-06-15] MEDS ORDERED: MANNITOL 12.5 GM/50 ML VIAL IV ONE (06:21)
[2017-06-15] MEDS ORDERED: cefTRIAXone 1,000 MG VIAL ONE (06:21)
[2017-06-15] MEDS ORDERED: INDOCYANINE GREEN 25 MG VIAL IV ONE (06:23)
[2017-06-15] MEDS ORDERED: CARVEDILOL 3.125 MG TABLET ONE (06:37)
[2017-06-15] MEDS ORDERED: CARVEDILOL 3.125 MG TABLET PO STA (06:40)
[2017-06-15 06:50] LABS: Basophils # 0.1 10*3/uL (0.0-0.2); Basophils % 0.9 % (0.0-0.8); Eosinophils # 0.3 10*3/uL (0.0-0.87); Eosinophils % 5.1 % (0.00-10.9); Hematocrit 31.9 VOL% (42.0-52.0); Hemoglobin 10.4 GM/DL (14.0-18.0); Immature Granulocytes % 0.5 %; Immature Granulocytes Absolute 0.03 #; Lymphocytes # 1.5 10*3/uL (1.4-4.0); Mean Corpuscular HGB Conc 32.6 GM/DL (32-36); Mean Corpuscular Hemoglobin 28 PG (27-34); Mean Corpuscular Volume 86.9 FL (87-102); Mean Platelet Volume 11.1 FL (9.6-12.0); Monocytes # 0.6 10*3/uL (0.11-0.8); Monocytes % 10.1 % (1.7-12.7); Neutrophils # 3.3 10*3/uL (1.4-7.4); Neutrophils % 57.4 % (38.7-73.9); Platelet Count 231 T/CUMM (130-400); Red Blood Count 3.67 MC/CUMM (3.8-5.5); White Blood Count 5.7 T/CUMM (4-12)
[2017-06-15] MEDS ORDERED: ALVIMOPAN 12 MG CAPSULE PO SCH (07:00)
[2017-06-15] MEDS ORDERED: cefTRIAXone 1,000 MG in SYRINGE 1 EACH IV ONE (07:00)
[2017-06-15 07:16] LABS: Alanine Aminotransferase < 9 U/L (16-61); Albumin 3.5 G/DL (3.4-5.0); Alkaline Phosphatase 94 U/L (45-117); Aspartate Amino Transferase 11 U/L (0-37); Bilirubin,Total < 0.39 MG/DL (0.2-1.0); Blood Urea Nitrogen 26 MG/DL (7-18); Calcium 8.5 MG/DL (8.5-10.1); Glucose 115 MG/DL (74-106); Osmolality,Calculated 278.8 MOS/KG (273-304); Potassium 4.4 MMOL/L (3.5-5.1); Sodium 137 MMOL/L (136-145); Total Protein 7.4 G/DL (6.4-8.3)
[2017-06-15] MEDS ORDERED: LIDOCAINE 2% TOP JELLY 20 ML VIAL INTRAURETH ONE (07:22)
[2017-06-15 10:53] LABS: Apearance,Urine CLEAR (Clear); Bilirubin,Urine Negative (Negative); Blood, Urine Large mg/dL (Negative); Glucose,Urine (UA) Negative (Negative); Ketones,Urine Negative (Negative); Mucus,Urine Occasional /LPF (Occasional); Nitrite,Urine Negative (Negative); Protein,Urine Negative; RBC,Urine 63 /HPF (0-4); Urine Color Yellow (Yellow); Urine Specific Gravity 1.016 (1.001-1.035); Urine Urobilinogen < 2.0 EU/DL (0.2-1.0); WBC,Urine 4 /HPF (0-6)
[2017-06-15] MEDS ORDERED: HYDROmorphone PCA 30 MG/30 ML SYRINGE IV SCH (13:00)
[2017-06-15] MEDS ORDERED: ROPIVACAINE 0.5% 30 ML VIAL ONE (13:07)
[2017-06-15] MEDS ORDERED: BUPIVACAINE 0.25% /EPI 10 ML VIAL ONE ×2 (13:09→13:15)
[2017-06-15] MEDS ORDERED: ONDANSETRON 4 MG/2 ML VIAL IV PRN (13:38)
[2017-06-15] MEDS ORDERED: MORPHINE 10 MG/1 ML VIAL IV PRN (13:38)
[2017-06-15] MEDS ORDERED: HYDROmorphone 2 MG/1 ML VIAL IV PRN (13:38)
[2017-06-15 14:02] LABS: Hematocrit 33.8 VOL% (42.0-52.0); Hemoglobin 11.1 GM/DL (14.0-18.0)
[2017-06-15] MEDS ORDERED: HYDROmorphone 2 MG/1 ML VIAL ONE (14:25)
[2017-06-15] MEDS ORDERED: fentaNYL 100 MCG/2 ML VIAL ONE (14:27)
[2017-06-15] MEDS ORDERED: ALBUMIN 5% 12.5 GM/250 ML VIAL IV ONE (14:27)
[2017-06-15] MEDS ORDERED: SEVOFLURANE 1 UNIT/15 MINUTE INH ONE (14:27)
[2017-06-15] MEDS ORDERED: PROPOFOL 200 MG/20 ML VIAL IV ONE (14:27)
[2017-06-15] MEDS ORDERED: CALCIUM CHLORIDE 1,000 MG/10 ML VIAL IV ONE (14:27)
[2017-06-15] MEDS ORDERED: ACETAMINOPHEN 1,000 MG/100 ML VIAL IV ONE (14:28)
[2017-06-15] MEDS ORDERED: DEXAMETHASONE 10 MG/1 ML VIAL ONE (14:28)
[2017-06-15] MEDS ORDERED: GLYCOPYRROLATE 0.4 MG/2 ML VIAL ONE (14:28)
[2017-06-15] MEDS ORDERED: ePHEDrine 50 MG/ML AMP ONE (14:28)
[2017-06-15] MEDS ORDERED: ONDANSETRON 4 MG/2 ML VIAL ONE (14:28)
[2017-06-15] MEDS ORDERED: NEOSTIGMINE 10 MG/10 ML VIAL ONE (14:28)
[2017-06-15] MEDS ORDERED: MIDAZOLAM 2 MG/2 ML VIAL ONE (14:28)
[2017-06-15] MEDS ORDERED: ROCURONIUM 100 MG/10 ML VIAL IV ONE (14:29)
[2017-06-15] MEDS ORDERED: SODIUM CHLORIDE 0.9% 1,000 ML IV ONE (14:30)
[2017-06-15] MEDS ORDERED: LACTATED RINGERS 2,000 ML IV ONE (14:30)
[2017-06-15] MEDS: SODIUM CHLORIDE 0.45% 1,000 ML IV SCH (14:53)
[2017-06-15] MEDS: FAMOTIDINE 20 MG TABLET PO SCH ×3 (16:30→21:32)
[2017-06-15] MEDS: DOCUSATE SODIUM 100 MG CAPSULE PO SCH ×3 (16:30→21:31)
[2017-06-15] MEDS: INSULIN REGULAR 100 UNIT/ML SUBCUT SCH ×4 (17:35→21:31)
[2017-06-15] MEDS: ALVIMOPAN 12 MG CAPSULE PO SCH (20:52)
[2017-06-16 05:12] LABS: Amorphous Crystals,Urine Occasional /HPF (Few); Apearance,Urine CLEAR (Clear); Bacteria,Urine Occasional /HPF (Few); Bilirubin,Urine Negative (Negative); Blood, Urine Moderate mg/dL (Negative); Glucose,Urine (UA) Negative (Negative); Ketones,Urine Negative (Negative); Mucus,Urine Occasional /LPF (Occasional); Nitrite,Urine Negative (Negative); Protein,Urine Negative; RBC,Urine 16 /HPF (0-4); Urine Color Yellow (Yellow); Urine Specific Gravity 1.015 (1.001-1.035); Urine Urobilinogen < 2.0 EU/DL (0.2-1.0); WBC,Urine 2 /HPF (0-6)
[2017-06-16] MEDS: SODIUM CHLORIDE 0.45% 1,000 ML IV SCH ×4 (05:40→21:59)
[2017-06-16] MEDS: LEVOTHYROXINE 137 MCG TABLET PO SCH (05:40)
[2017-06-16 06:30] LABS: Basophils % 0.3 % (0.0-0.8); Eosinophils % 0.4 % (0.00-10.9); Hematocrit 31.8 VOL% (42.0-52.0); Hemoglobin 10.5 GM/DL (14.0-18.0); Immature Granulocytes % 0.4 %; Immature Granulocytes Absolute 0.04 #; Lymphocytes # 1.3 10*3/uL (1.4-4.0); Lymphocytes % 13.9 % (21.2-54.2); Mean Corpuscular Hemoglobin 29 PG (27-34); Mean Corpuscular Volume 88.6 FL (87-102); Mean Platelet Volume 11.6 FL (9.6-12.0); Monocytes # 0.9 10*3/uL (0.11-0.8); Platelet Count 179 T/CUMM (130-400); Red Blood Count 3.59 MC/CUMM (3.8-5.5); Red Cell Distribution Width 14.3 % (9.3-17.3); White Blood Count 9.4 T/CUMM (4-12)
[2017-06-16 06:52] LABS: Calcium 8.3 MG/DL (8.5-10.1); Potassium 4.7 MMOL/L (3.5-5.1)
[2017-06-16 08:06] LABS: Amylase,Body Fluid 9480 U/L
[2017-06-16] MEDS: INSULIN REGULAR 100 UNIT/ML SUBCUT SCH ×4 (08:45→22:55)
[2017-06-16] MEDS: ALVIMOPAN 12 MG CAPSULE PO SCH ×2 (08:47→20:22)
[2017-06-16] MEDS: FAMOTIDINE 20 MG TABLET PO SCH ×2 (08:47→20:22)
[2017-06-16] MEDS: DOCUSATE SODIUM 100 MG CAPSULE PO SCH ×2 (08:47→20:22)
[2017-06-16] MEDS ORDERED: oxyCODONE/ACETAMINOPHEN 5-325 MG TABLET PO PRN (10:45)
[2017-06-16] MEDS: oxyCODONE/ACETAMINOPHEN 5-325 MG TABLET PO PRN (15:05)
[2017-06-17] MEDS: oxyCODONE/ACETAMINOPHEN 5-325 MG TABLET PO PRN ×2 (01:47→09:41)
[2017-06-17] MEDS: LEVOTHYROXINE 137 MCG TABLET PO SCH (05:59)
[2017-06-17 07:29] LABS: Basophils % 0.3 % (0.0-0.8); Eosinophils # 0.3 10*3/uL (0.0-0.87); Eosinophils % 2.7 % (0.00-10.9); Hematocrit 30.4 VOL% (42.0-52.0); Hemoglobin 10.1 GM/DL (14.0-18.0); Immature Granulocytes % 0.4 %; Immature Granulocytes Absolute 0.04 #; Lymphocytes % 10.8 % (21.2-54.2); Mean Corpuscular HGB Conc 33.2 GM/DL (32-36); Mean Corpuscular Hemoglobin 29 PG (27-34); Mean Corpuscular Volume 87.6 FL (87-102); Mean Platelet Volume 11.9 FL (9.6-12.0); Monocytes # 0.9 10*3/uL (0.11-0.8); Monocytes % 9.5 % (1.7-12.7); Neutrophils # 7.4 10*3/uL (1.4-7.4); Neutrophils % 76.3 % (38.7-73.9); Platelet Count 172 T/CUMM (130-400); Red Blood Count 3.47 MC/CUMM (3.8-5.5); Red Cell Distribution Width 14.4 % (9.3-17.3); White Blood Count 9.6 T/CUMM (4-12)
[2017-06-17 07:57] LABS: Calcium 8.1 MG/DL (8.5-10.1); Osmolality,Calculated 270.4 MOS/KG (273-304); Potassium 4.2 MMOL/L (3.5-5.1)
[2017-06-17] MEDS: ALVIMOPAN 12 MG CAPSULE PO SCH ×2 (08:14→20:06)
[2017-06-17] MEDS: FAMOTIDINE 20 MG TABLET PO SCH ×2 (08:14→20:06)
[2017-06-17] MEDS: INSULIN REGULAR 100 UNIT/ML SUBCUT SCH ×4 (08:14→21:36)
[2017-06-17] MEDS: MAGNESIUM HYDROXIDE SUSP 30 ML UDCUP PO PRN (08:14)
[2017-06-17] MEDS: DOCUSATE SODIUM 100 MG CAPSULE PO SCH ×2 (08:14→20:05)
[2017-06-18] MEDS: LEVOTHYROXINE 137 MCG TABLET PO SCH (05:51)
[2017-06-18] MEDS: oxyCODONE/ACETAMINOPHEN 5-325 MG TABLET PO PRN ×2 (06:38→21:23)
[2017-06-18 07:42] LABS: Calcium 8.2 MG/DL (8.5-10.1); Osmolality,Calculated 270.2 MOS/KG (273-304); Potassium 4.3 MMOL/L (3.5-5.1)
[2017-06-18] MEDS: ALVIMOPAN 12 MG CAPSULE PO SCH ×2 (08:23→21:24)
[2017-06-18] MEDS: DOCUSATE SODIUM 100 MG CAPSULE PO SCH ×2 (08:23→21:24)
[2017-06-18] MEDS: MEPERIDINE 50 MG/1 ML VIAL IM PRN ×2 (08:24→16:25)
[2017-06-18] MEDS: FAMOTIDINE 20 MG TABLET PO SCH ×2 (08:24→21:24)
[2017-06-18] MEDS: INSULIN REGULAR 100 UNIT/ML SUBCUT SCH ×4 (08:24→21:24)
[2017-06-18] MEDS ORDERED: BISACODYL 5 MG TABLET PO PRN (08:39)
[2017-06-18] MEDS ORDERED: BISACODYL 10 MG SUPP RECTAL PRN (08:44)
[2017-06-18] MEDS: MAGNESIUM HYDROXIDE SUSP 30 ML UDCUP PO PRN (09:42)
[2017-06-19] MEDS: oxyCODONE/ACETAMINOPHEN 5-325 MG TABLET PO PRN ×3 (04:30→21:16)
[2017-06-19] MEDS: LEVOTHYROXINE 137 MCG TABLET PO SCH (06:19)
[2017-06-19 07:36] LABS: Calcium 8.5 MG/DL (8.5-10.1); Osmolality,Calculated 272.1 MOS/KG (273-304); Potassium 4.5 MMOL/L (3.5-5.1)
[2017-06-19] MEDS: FAMOTIDINE 20 MG TABLET PO SCH ×2 (08:29→21:15)
[2017-06-19] MEDS: DOCUSATE SODIUM 100 MG CAPSULE PO SCH ×2 (08:29→21:15)
[2017-06-19] MEDS: ALVIMOPAN 12 MG CAPSULE PO SCH ×2 (08:29→21:16)
[2017-06-19] MEDS: INSULIN REGULAR 100 UNIT/ML SUBCUT SCH ×4 (08:34→21:16)
[2017-06-19] MEDS: MEPERIDINE 50 MG/1 ML VIAL IM PRN (18:19)
[2017-06-20] MEDS: oxyCODONE/ACETAMINOPHEN 5-325 MG TABLET PO PRN ×2 (01:45→09:21)
[2017-06-20] MEDS: LEVOTHYROXINE 137 MCG TABLET PO SCH (06:28)
[2017-06-20 06:55] LABS: Calcium 8.9 MG/DL (8.5-10.1); Osmolality,Calculated 268.4 MOS/KG (273-304); Potassium 4.3 MMOL/L (3.5-5.1)
[2017-06-20] MEDS: INSULIN REGULAR 100 UNIT/ML SUBCUT SCH (07:51)
[2017-06-20] MEDS: FAMOTIDINE 20 MG TABLET PO SCH (08:18)
[2017-06-20] MEDS: ALVIMOPAN 12 MG CAPSULE PO SCH (08:18)
[2017-06-20] MEDS: DOCUSATE SODIUM 100 MG CAPSULE PO SCH (08:18)
[2017-06-20 09:05] VITALS: BP 159/79
== END 2017-06-20 10:17 | disposition home health service (06) | DRG 657 ==
LOC: N.SDSINP 05:37 → N.OR 05:37 → N.SDSINP 05:38 → EDSTATUS 07:30 → N.5E 14:27
PROVIDERS: ADMIT Urology; ATTEND Urology

== ENCOUNTER 2017-07-08 16:14 | Inpatient (IN) ==
[2017-07-08] MEDS ORDERED: ASPIRIN 325 MG TABLET PO STA (16:46)
[2017-07-08 18:03] LABS: Basophils # 0.1 10*3/uL (0.0-0.2); Basophils % 0.7 % (0.0-0.8); Eosinophils # 0.3 10*3/uL (0.0-0.87); Eosinophils % 4.4 % (0.00-10.9); Hematocrit 28.6 VOL% (42.0-52.0); Hemoglobin 9.8 GM/DL (14.0-18.0); Immature Granulocytes % 0.1 %; Immature Granulocytes Absolute 0.01 #; Lymphocytes # 1.9 10*3/uL (1.4-4.0); Lymphocytes % 26.2 % (21.2-54.2); Mean Corpuscular HGB Conc 34.3 GM/DL (32-36); Mean Corpuscular Hemoglobin 29 PG (27-34); Mean Corpuscular Volume 84.6 FL (87-102); Mean Platelet Volume 11.6 FL (9.6-12.0); Monocytes # 0.9 10*3/uL (0.11-0.8); Monocytes % 12.1 % (1.7-12.7); Neutrophils % 56.5 % (38.7-73.9); Platelet Count 345 T/CUMM (130-400); Red Blood Count 3.38 MC/CUMM (3.8-5.5); Red Cell Distribution Width 13.2 % (9.3-17.3); White Blood Count 7.1 T/CUMM (4-12)
[2017-07-08 18:19] LABS: Alanine Aminotransferase < 9 U/L (16-61); Albumin 3.4 G/DL (3.4-5.0); Alkaline Phosphatase 97 U/L (45-117); Aspartate Amino Transferase 17 U/L (0-37); Bilirubin,Total < 0.39 MG/DL (0.2-1.0); Blood Urea Nitrogen 37 MG/DL (7-18); Glucose 69 MG/DL (74-106); Magnesium 2.6 MG/DL (1.8-2.4); Potassium 4.9 MMOL/L (3.5-5.1); Sodium 136 MMOL/L (136-145); Total Protein 7.8 G/DL (6.4-8.3)
[2017-07-08] MEDS ORDERED: ASPIRIN 325 MG TABLET ONE (18:55)
[2017-07-08] MEDS ORDERED: ACETAMINOPHEN 325 MG TABLET PO PRN (19:07)
[2017-07-08] MEDS ORDERED: ONDANSETRON 4 MG/2 ML VIAL IV PRN (19:07)
[2017-07-08] MEDS ORDERED: HEPARIN 1,000 UNIT/1 ML VIAL IV STA (19:12)
[2017-07-08] MEDS ORDERED: HEPARIN DRIP 25,000 UNITS/500 ML PREMIX IV STA (19:12)
[2017-07-08] MEDS ORDERED: HEPARIN DRIP 25,000 UNITS/500 ML PREMIX IV ONE (19:25)
[2017-07-08] MEDS ORDERED: HEPARIN 5,000 UNIT/1 ML VIAL ONE (19:25)
[2017-07-08] MEDS: DOCUSATE SODIUM 100 MG CAPSULE PO SCH (22:46)
[2017-07-08] MEDS ORDERED: MAGNESIUM HYDROXIDE SUSP 30 ML UDCUP PO PRN (23:41)
[2017-07-09] MEDS: DEXTROSE 5% NACL 0.9% 1,000 ML IV SCH ×5 (00:18→16:17)
[2017-07-09 07:17] LABS: Basophils % 0.5 % (0.0-0.8); Eosinophils # 0.2 10*3/uL (0.0-0.87); Eosinophils % 4.3 % (0.00-10.9); Hematocrit 26.9 VOL% (42.0-52.0); Hemoglobin 8.9 GM/DL (14.0-18.0); Immature Granulocytes % 0.2 %; Immature Granulocytes Absolute 0.01 #; Lymphocytes # 1.5 10*3/uL (1.4-4.0); Lymphocytes % 26.5 % (21.2-54.2); Mean Corpuscular HGB Conc 33.1 GM/DL (32-36); Mean Corpuscular Hemoglobin 28 PG (27-34); Mean Corpuscular Volume 85.4 FL (87-102); Mean Platelet Volume 11.7 FL (9.6-12.0); Monocytes # 0.6 10*3/uL (0.11-0.8); Monocytes % 11.4 % (1.7-12.7); Neutrophils # 3.2 10*3/uL (1.4-7.4); Neutrophils % 57.1 % (38.7-73.9); Platelet Count 268 T/CUMM (130-400); Red Blood Count 3.15 MC/CUMM (3.8-5.5); Red Cell Distribution Width 13.2 % (9.3-17.3); White Blood Count 5.6 T/CUMM (4-12)
[2017-07-09 07:49] LABS: Calcium 7.8 MG/DL (8.5-10.1); Magnesium 2.4 MG/DL (1.8-2.4); Osmolality,Calculated 279.1 MOS/KG (273-304); Potassium 4.6 MMOL/L (3.5-5.1)
[2017-07-09] MEDS ORDERED: INSULIN NPH/REGULAR 70/30 100 UNIT/ML SUBCUT SCH (08:00)
[2017-07-09] MEDS: INSULIN NPH/REGULAR 70/30 100 UNIT/ML SUBCUT SCH ×2 (08:54→16:18)
[2017-07-09] MEDS: DOCUSATE SODIUM 100 MG CAPSULE PO SCH ×2 (08:55→20:54)
[2017-07-09] MEDS: PANTOPRAZOLE 40 MG TABLET PO SCH (08:55)
[2017-07-09] MEDS: BACLOFEN 10 MG TABLET PO SCH ×3 (08:55→20:54)
[2017-07-09] MEDS: GLIMEPIRIDE 2 MG TABLET PO SCH (08:55)
[2017-07-09] MEDS: CARVEDILOL 6.25 MG TABLET PO SCH ×2 (08:55→20:54)
[2017-07-09] MEDS ORDERED: ALUMINUM/MAGNES/SIMETH MAX STR 30 ML UDCUP PO PRN (12:56)
[2017-07-09] MEDS ORDERED: SKIN HEALING OINT (AQUAPHOR) 50 GM TUBE TOP PRN (12:57)
[2017-07-09] MEDS: SERTRALINE 25 MG TABLET PO SCH (13:54)
[2017-07-09] MEDS: ENOXAPARIN 30 MG/0.3 ML SYRINGE SUBCUT SCH (13:55)
[2017-07-09] MEDS: methylPREDNISolone SOD SUC 40 MG/1 ML VIAL IV SCH (13:55)
[2017-07-09] MEDS: cefTRIAXone 1,000 MG in SYRINGE 1 EACH IV SCH (13:57)
[2017-07-09] MEDS: fentaNYL 12 MCG/HR PATCH TRANSDERM SCH (14:01)
[2017-07-09] MEDS: LIDOCAINE 5% PATCH TRANSDERM SCH (14:03)
[2017-07-09] MEDS: INSULIN REGULAR 100 UNIT/ML SUBCUT SCH ×2 (16:18→20:59)
[2017-07-09] MEDS: ALBUTEROL/IPRATROPIUM 3 ML NEB RESP TX SCH ×3 (16:43→23:56)
[2017-07-09] MEDS: LEVOTHYROXINE 137 MCG TABLET PO SCH (18:28)
[2017-07-10] MEDS: DEXTROSE 5% NACL 0.9% 1,000 ML IV SCH ×5 (00:36→21:07)
[2017-07-10] MEDS: methylPREDNISolone SOD SUC 40 MG/1 ML VIAL IV SCH ×2 (00:36→12:56)
[2017-07-10 06:47] LABS: Hematocrit 25.1 VOL% (42.0-52.0); Hemoglobin 8.4 GM/DL (14.0-18.0); Immature Granulocytes % 0.2 %; Immature Granulocytes Absolute 0.01 #; Lymphocytes # 0.7 10*3/uL (1.4-4.0); Mean Corpuscular HGB Conc 33.5 GM/DL (32-36); Mean Corpuscular Hemoglobin 29 PG (27-34); Mean Corpuscular Volume 86.3 FL (87-102); Mean Platelet Volume 12.2 FL (9.6-12.0); Monocytes # 0.3 10*3/uL (0.11-0.8); Monocytes % 3.9 % (1.7-12.7); Neutrophils # 5.4 10*3/uL (1.4-7.4); Neutrophils % 84.9 % (38.7-73.9); Platelet Count 256 T/CUMM (130-400); Red Blood Count 2.91 MC/CUMM (3.8-5.5); Red Cell Distribution Width 12.8 % (9.3-17.3); White Blood Count 6.4 T/CUMM (4-12)
[2017-07-10 07:18] LABS: Alanine Aminotransferase < 9 U/L (16-61); Albumin 2.7 G/DL (3.4-5.0); Alkaline Phosphatase 79 U/L (45-117); Aspartate Amino Transferase 8 U/L (0-37); Bilirubin,Total < 0.39 MG/DL (0.2-1.0); Blood Urea Nitrogen 28 MG/DL (7-18); Glucose 179 MG/DL (74-106); Magnesium 2.3 MG/DL (1.8-2.4); Potassium 5.4 MMOL/L (3.5-5.1); Sodium 136 MMOL/L (136-145); Total Protein 6.9 G/DL (6.4-8.3)
[2017-07-10] MEDS: ALBUTEROL/IPRATROPIUM 3 ML NEB RESP TX SCH ×3 (08:47→20:38)
[2017-07-10] MEDS: INSULIN REGULAR 100 UNIT/ML SUBCUT SCH ×4 (09:15→21:01)
[2017-07-10] MEDS: GLIMEPIRIDE 2 MG TABLET PO SCH (09:15)
[2017-07-10] MEDS: DOCUSATE SODIUM 100 MG CAPSULE PO SCH ×2 (09:15→21:01)
[2017-07-10] MEDS: SERTRALINE 25 MG TABLET PO SCH (09:15)
[2017-07-10] MEDS: INSULIN NPH/REGULAR 70/30 100 UNIT/ML SUBCUT SCH ×2 (09:15→17:44)
[2017-07-10] MEDS: PANTOPRAZOLE 40 MG TABLET PO SCH (09:15)
[2017-07-10] MEDS: CARVEDILOL 6.25 MG TABLET PO SCH ×2 (09:15→21:01)
[2017-07-10] MEDS: BACLOFEN 10 MG TABLET PO SCH ×3 (09:15→21:00)
[2017-07-10] MEDS: LIDOCAINE 5% PATCH TRANSDERM SCH (09:16)
[2017-07-10] MEDS: ENOXAPARIN 30 MG/0.3 ML SYRINGE SUBCUT SCH (12:55)
[2017-07-10] MEDS: cefTRIAXone 1,000 MG in SYRINGE 1 EACH IV SCH (12:56)
[2017-07-10] MEDS: LEVOTHYROXINE 137 MCG TABLET PO SCH (18:06)
[2017-07-11] MEDS: ALBUTEROL/IPRATROPIUM 3 ML NEB RESP TX SCH ×4 (01:30→19:23)
[2017-07-11] MEDS: methylPREDNISolone SOD SUC 40 MG/1 ML VIAL IV SCH ×2 (02:20→14:09)
[2017-07-11 05:41] LABS: Basophils % 0.2 % (0.0-0.8); Eosinophils # 0.1 10*3/uL (0.0-0.87); Eosinophils % 0.7 % (0.00-10.9); Hematocrit 24.1 VOL% (42.0-52.0); Hemoglobin 7.8 GM/DL (14.0-18.0); Immature Granulocytes % 0.3 %; Immature Granulocytes Absolute 0.03 #; Lymphocytes # 0.9 10*3/uL (1.4-4.0); Lymphocytes % 10.2 % (21.2-54.2); Mean Corpuscular HGB Conc 32.4 GM/DL (32-36); Mean Corpuscular Hemoglobin 28 PG (27-34); Mean Corpuscular Volume 86.7 FL (87-102); Mean Platelet Volume 12.1 FL (9.6-12.0); Monocytes # 0.6 10*3/uL (0.11-0.8); Monocytes % 6.7 % (1.7-12.7); Neutrophils % 81.9 % (38.7-73.9); Platelet Count 233 T/CUMM (130-400); Red Blood Count 2.78 MC/CUMM (3.8-5.5); Red Cell Distribution Width 13.1 % (9.3-17.3); White Blood Count 8.6 T/CUMM (4-12)
[2017-07-11 05:47] LABS: Alanine Aminotransferase < 9 U/L (16-61); Albumin 2.7 G/DL (3.4-5.0); Alkaline Phosphatase 77 U/L (45-117); Aspartate Amino Transferase 9 U/L (0-37); Bilirubin,Total < 0.39 MG/DL (0.2-1.0); Blood Urea Nitrogen 26 MG/DL (7-18); Glucose 140 MG/DL (74-106); Osmolality,Calculated 279.8 MOS/KG (273-304); Potassium 5.2 MMOL/L (3.5-5.1); Sodium 137 MMOL/L (136-145); Total Protein 6.5 G/DL (6.4-8.3)
[2017-07-11] MEDS: DEXTROSE 5% NACL 0.9% 1,000 ML IV SCH ×2 (06:31→15:00)
[2017-07-11] MEDS: INSULIN NPH/REGULAR 70/30 100 UNIT/ML SUBCUT SCH ×2 (09:14→17:35)
[2017-07-11] MEDS: INSULIN REGULAR 100 UNIT/ML SUBCUT SCH ×4 (09:14→21:56)
[2017-07-11] MEDS: BACLOFEN 10 MG TABLET PO SCH ×3 (09:14→21:56)
[2017-07-11] MEDS: DOCUSATE SODIUM 100 MG CAPSULE PO SCH ×2 (09:14→21:57)
[2017-07-11] MEDS: PANTOPRAZOLE 40 MG TABLET PO SCH (09:14)
[2017-07-11] MEDS: CARVEDILOL 6.25 MG TABLET PO SCH ×2 (09:14→21:56)
[2017-07-11] MEDS: GLIMEPIRIDE 2 MG TABLET PO SCH (09:14)
[2017-07-11] MEDS: SERTRALINE 25 MG TABLET PO SCH (09:14)
[2017-07-11] MEDS: LIDOCAINE 5% PATCH TRANSDERM SCH (09:15)
[2017-07-11] MEDS: ENOXAPARIN 30 MG/0.3 ML SYRINGE SUBCUT SCH (14:09)
[2017-07-11] MEDS: cefTRIAXone 1,000 MG in SYRINGE 1 EACH IV SCH (14:10)
[2017-07-11] MEDS: LEVOTHYROXINE 137 MCG TABLET PO SCH (17:35)
[2017-07-12] MEDS: DEXTROSE 5% NACL 0.9% 1,000 ML IV SCH ×2 (00:47→10:19)
[2017-07-12] MEDS: methylPREDNISolone SOD SUC 40 MG/1 ML VIAL IV SCH ×2 (00:48→12:24)
[2017-07-12] MEDS: ALBUTEROL/IPRATROPIUM 3 ML NEB RESP TX SCH ×3 (01:07→12:54)
[2017-07-12 05:39] LABS: Basophils % 0.3 % (0.0-0.8); Eosinophils # 0.1 10*3/uL (0.0-0.87); Eosinophils % 0.9 % (0.00-10.9); Hematocrit 26.1 VOL% (42.0-52.0); Immature Granulocytes % 1.5 %; Immature Granulocytes Absolute 0.11 #; Lymphocytes # 0.8 10*3/uL (1.4-4.0); Lymphocytes % 10.1 % (21.2-54.2); Mean Corpuscular HGB Conc 34.5 GM/DL (32-36); Mean Corpuscular Hemoglobin 30 PG (27-34); Mean Corpuscular Volume 86.1 FL (87-102); Mean Platelet Volume 11.5 FL (9.6-12.0); Monocytes # 0.3 10*3/uL (0.11-0.8); Monocytes % 4.1 % (1.7-12.7); Neutrophils # 6.2 10*3/uL (1.4-7.4); Neutrophils % 83.1 % (38.7-73.9); Platelet Count 277 T/CUMM (130-400); Red Blood Count 3.03 MC/CUMM (3.8-5.5); Red Cell Distribution Width 13.2 % (9.3-17.3); White Blood Count 7.5 T/CUMM (4-12)
[2017-07-12 06:17] LABS: % Iron Saturation 25.3 % (18-50)
[2017-07-12] MEDS: INSULIN NPH/REGULAR 70/30 100 UNIT/ML SUBCUT SCH (10:15)
[2017-07-12] MEDS: INSULIN REGULAR 100 UNIT/ML SUBCUT SCH ×2 (10:16→13:35)
[2017-07-12] MEDS: SERTRALINE 25 MG TABLET PO SCH (10:17)
[2017-07-12] MEDS: BACLOFEN 10 MG TABLET PO SCH (10:18)
[2017-07-12] MEDS: GLIMEPIRIDE 2 MG TABLET PO SCH (10:18)
[2017-07-12] MEDS: DOCUSATE SODIUM 100 MG CAPSULE PO SCH (10:18)
[2017-07-12] MEDS: LIDOCAINE 5% PATCH TRANSDERM SCH (10:18)
[2017-07-12] MEDS: PANTOPRAZOLE 40 MG TABLET PO SCH (10:18)
[2017-07-12] MEDS: CARVEDILOL 6.25 MG TABLET PO SCH (10:18)
[2017-07-12] MEDS: ENOXAPARIN 30 MG/0.3 ML SYRINGE SUBCUT SCH (12:23)
[2017-07-12] MEDS: cefTRIAXone 1,000 MG in SYRINGE 1 EACH IV SCH (12:25)
[2017-07-12] MEDS: fentaNYL 12 MCG/HR PATCH TRANSDERM SCH (12:27)
[2017-07-12 20:51] VITALS: BP 133/91
== END 2017-07-12 17:59 | disposition home or self-care (01) | DRG 683 ==
LOC: EDUNIT# → EDBD → N.ED 16:14 → N.EDINP 19:07 → N.TELES 19:25 → N.5E 19:57
PROVIDERS: ADMIT Internal Medicine; ATTEND Internal Medicine

== ENCOUNTER 2017-08-13 11:12 | Inpatient (IN) ==
[2017-08-13] MEDS ORDERED: FUROSEMIDE 100 MG/10 ML VIAL IV STA (11:36)
[2017-08-13] MEDS ORDERED: FUROSEMIDE 40 MG/4 ML VIAL ONE (12:30)
[2017-08-13 12:31] LABS: Basophils % 0.5 % (0.0-0.8); Eosinophils # 0.2 10*3/uL (0.0-0.87); Eosinophils % 2.7 % (0.00-10.9); Hematocrit 29.2 VOL% (42.0-52.0); Hemoglobin 9.4 GM/DL (14.0-18.0); Immature Granulocytes % 0.5 %; Immature Granulocytes Absolute 0.03 #; Lymphocytes # 1.3 10*3/uL (1.4-4.0); Lymphocytes % 21.8 % (21.2-54.2); Mean Corpuscular HGB Conc 32.2 GM/DL (32-36); Mean Corpuscular Hemoglobin 28 PG (27-34); Mean Corpuscular Volume 86.4 FL (87-102); Mean Platelet Volume 10.9 FL (9.6-12.0); Monocytes # 0.6 10*3/uL (0.11-0.8); Monocytes % 9.5 % (1.7-12.7); Neutrophils # 3.9 10*3/uL (1.4-7.4); Platelet Count 275 T/CUMM (130-400); Red Blood Count 3.38 MC/CUMM (3.8-5.5); Red Cell Distribution Width 13.8 % (9.3-17.3)
[2017-08-13 12:57] LABS: Alanine Aminotransferase < 9 U/L (16-61); Albumin 3.4 G/DL (3.4-5.0); Alkaline Phosphatase 99 U/L (45-117); Aspartate Amino Transferase 19 U/L (0-37); Blood Urea Nitrogen 24 MG/DL (7-18); Calcium 8.9 MG/DL (8.5-10.1); Glucose 147 MG/DL (74-106); Osmolality,Calculated 276.1 MOS/KG (273-304); Potassium 4.6 MMOL/L (3.5-5.1); Sodium 135 MMOL/L (136-145); Total Protein 7.5 G/DL (6.4-8.3); Troponin I Only < 0.015 NG/ML (0.00-0.045)
[2017-08-13] MEDS ORDERED: ENOXAPARIN 30 MG/0.3 ML SYRINGE SUBCUT STA (14:06)
[2017-08-13] MEDS ORDERED: FUROSEMIDE 20 MG/2 ML VIAL IV STA (14:40)
[2017-08-13] MEDS ORDERED: cefTRIAXone 1,000 MG in SODIUM CHLORIDE 0.9% 100 ML IV STA (14:41)
[2017-08-13] MEDS ORDERED: ONDANSETRON 4 MG/2 ML VIAL IV PRN (14:42)
[2017-08-13] MEDS ORDERED: HYDROmorphone 2 MG/1 ML VIAL IV PRN (14:42)
[2017-08-13] MEDS ORDERED: ACETAMINOPHEN 325 MG TABLET PO PRN (14:42)
[2017-08-13] MEDS ORDERED: ENOXAPARIN 30 MG/0.3 ML SYRINGE ONE (14:57)
[2017-08-13] MEDS ORDERED: FUROSEMIDE 20 MG/2 ML VIAL ONE (14:57)
[2017-08-13] MEDS ORDERED: SODIUM CHLORIDE 0.45% 1,000 ML IV SCH (15:00)
[2017-08-13] MEDS ORDERED: cefTRIAXone 1,000 MG in SYRINGE 1 EACH IV ONE (18:30)
[2017-08-13] MEDS: ENOXAPARIN 40 MG/0.4 ML SYRINGE SUBCUT SCH (21:55)
[2017-08-13] MEDS: DOCUSATE SODIUM 100 MG CAPSULE PO SCH (22:02)
[2017-08-14] MEDS ORDERED: HYOSCYAMINE 0.125 MG TABLET PO PRN (03:56)
[2017-08-14 04:47] LABS: Basophils % 0.8 % (0.0-0.8); Eosinophils # 0.2 10*3/uL (0.0-0.87); Eosinophils % 3.7 % (0.00-10.9); Hemoglobin 8.5 GM/DL (14.0-18.0); Immature Granulocytes % 0.4 %; Immature Granulocytes Absolute 0.02 #; Lymphocytes # 1.3 10*3/uL (1.4-4.0); Lymphocytes % 24.8 % (21.2-54.2); Mean Corpuscular Hemoglobin 29 PG (27-34); Mean Corpuscular Volume 84.5 FL (87-102); Mean Platelet Volume 11.2 FL (9.6-12.0); Monocytes # 0.6 10*3/uL (0.11-0.8); Monocytes % 12.5 % (1.7-12.7); Neutrophils % 57.8 % (38.7-73.9); Platelet Count 262 T/CUMM (130-400); Red Blood Count 2.96 MC/CUMM (3.8-5.5); White Blood Count 5.1 T/CUMM (4-12)
[2017-08-14 05:13] LABS: Calcium 8.5 MG/DL (8.5-10.1); Osmolality,Calculated 275.1 MOS/KG (273-304); Potassium 4.6 MMOL/L (3.5-5.1)
[2017-08-14] MEDS: DOCUSATE SODIUM 100 MG CAPSULE PO SCH ×2 (08:23→20:56)
[2017-08-14] MEDS: PANTOPRAZOLE 40 MG TABLET PO SCH (08:23)
[2017-08-14] MEDS ORDERED: FUROSEMIDE 40 MG/4 ML VIAL IV ONE (09:36)
[2017-08-14] MEDS ORDERED: traMADol 50 MG TABLET PO PRN (11:20)
[2017-08-14] MEDS ORDERED: traZODone 50 MG TABLET PO PRN (11:20)
[2017-08-14] MEDS ORDERED: ALBUTEROL/IPRATROPIUM 3 ML NEB RESP TX PRN (11:20)
[2017-08-14] MEDS: INSULIN NPH/REGULAR 70/30 100 UNIT/ML SUBCUT SCH (18:15)
[2017-08-14] MEDS: ALUMINUM/MAGNES/SIMETH MAX STR 30 ML UDCUP PO PRN (20:55)
[2017-08-14] MEDS: TAMSULOSIN 0.4 MG CAPSULE PO SCH (20:56)
[2017-08-14] MEDS: FAMOTIDINE 20 MG TABLET PO SCH (20:56)
[2017-08-14] MEDS: ENOXAPARIN 40 MG/0.4 ML SYRINGE SUBCUT SCH (20:57)
[2017-08-15 05:44] LABS: Basophils % 0.7 % (0.0-0.8); Eosinophils # 0.3 10*3/uL (0.0-0.87); Eosinophils % 5.1 % (0.00-10.9); Hematocrit 26.2 VOL% (42.0-52.0); Hemoglobin 8.8 GM/DL (14.0-18.0); Immature Granulocytes % 0.3 %; Immature Granulocytes Absolute 0.02 #; Lymphocytes # 1.6 10*3/uL (1.4-4.0); Lymphocytes % 25.7 % (21.2-54.2); Mean Corpuscular HGB Conc 33.6 GM/DL (32-36); Mean Corpuscular Hemoglobin 28 PG (27-34); Mean Corpuscular Volume 83.4 FL (87-102); Mean Platelet Volume 11.9 FL (9.6-12.0); Monocytes # 0.8 10*3/uL (0.11-0.8); Monocytes % 13.6 % (1.7-12.7); Neutrophils # 3.4 10*3/uL (1.4-7.4); Neutrophils % 54.6 % (38.7-73.9); Platelet Count 266 T/CUMM (130-400); Red Blood Count 3.14 MC/CUMM (3.8-5.5); Red Cell Distribution Width 13.8 % (9.3-17.3); White Blood Count 6.1 T/CUMM (4-12)
[2017-08-15 06:17] LABS: Calcium 8.6 MG/DL (8.5-10.1); Osmolality,Calculated 276.1 MOS/KG (273-304); Potassium 4.9 MMOL/L (3.5-5.1)
[2017-08-15] MEDS: LEVOTHYROXINE 137 MCG TABLET PO SCH (06:36)
[2017-08-15] MEDS: FINASTERIDE 5 MG TABLET PO SCH (09:07)
[2017-08-15] MEDS: FERROUS SULFATE 325 MG TABLET PO SCH (09:07)
[2017-08-15] MEDS: SERTRALINE 25 MG TABLET PO SCH (09:07)
[2017-08-15] MEDS: INSULIN NPH/REGULAR 70/30 100 UNIT/ML SUBCUT SCH ×2 (09:07→18:27)
[2017-08-15] MEDS: PANTOPRAZOLE 40 MG TABLET PO SCH (09:08)
[2017-08-15] MEDS: DOCUSATE SODIUM 100 MG CAPSULE PO SCH ×2 (09:08→20:36)
[2017-08-15] MEDS: TAMSULOSIN 0.4 MG CAPSULE PO SCH ×2 (09:08→20:36)
[2017-08-15] MEDS: ASPIRIN EC 81 MG TABLET PO SCH (09:08)
[2017-08-15] MEDS: FAMOTIDINE 20 MG TABLET PO SCH ×2 (09:08→20:36)
[2017-08-15] MEDS: GLIMEPIRIDE 2 MG TABLET PO SCH (09:08)
[2017-08-15] MEDS ORDERED: FUROSEMIDE 40 MG/4 ML VIAL IV ONE (11:11)
[2017-08-15] MEDS: cefTRIAXone 1,000 MG in SYRINGE 1 EACH IV SCH (11:49)
[2017-08-15] MEDS: ENOXAPARIN 40 MG/0.4 ML SYRINGE SUBCUT SCH (20:36)
[2017-08-15] MEDS: ALUMINUM/MAGNES/SIMETH MAX STR 30 ML UDCUP PO PRN (20:37)
[2017-08-16] MEDS: LEVOTHYROXINE 137 MCG TABLET PO SCH (06:47)
[2017-08-16] MEDS: TAMSULOSIN 0.4 MG CAPSULE PO SCH (09:10)
[2017-08-16] MEDS: GLIMEPIRIDE 2 MG TABLET PO SCH (09:10)
[2017-08-16] MEDS: FAMOTIDINE 20 MG TABLET PO SCH ×2 (09:10→20:57)
[2017-08-16] MEDS: INSULIN NPH/REGULAR 70/30 100 UNIT/ML SUBCUT SCH ×2 (09:10→16:53)
[2017-08-16] MEDS: PANTOPRAZOLE 40 MG TABLET PO SCH (09:10)
[2017-08-16] MEDS: DOCUSATE SODIUM 100 MG CAPSULE PO SCH ×2 (09:10→20:57)
[2017-08-16] MEDS: ASPIRIN EC 81 MG TABLET PO SCH (09:10)
[2017-08-16] MEDS: FERROUS SULFATE 325 MG TABLET PO SCH (09:10)
[2017-08-16] MEDS: SERTRALINE 25 MG TABLET PO SCH (09:10)
[2017-08-16] MEDS: FINASTERIDE 5 MG TABLET PO SCH (09:10)
[2017-08-16] MEDS: cefTRIAXone 1,000 MG in SYRINGE 1 EACH IV SCH (12:54)
[2017-08-16] MEDS ORDERED: SODIUM CHLORIDE 0.9% 1,000 ML IV PRN (18:29)
[2017-08-16] MEDS: ALBUTEROL/IPRATROPIUM 3 ML NEB RESP TX SCH (19:43)
[2017-08-16] MEDS: ENOXAPARIN 40 MG/0.4 ML SYRINGE SUBCUT SCH (20:55)
[2017-08-16] MEDS: ALPRAZolam 0.25 MG TABLET PO SCH ×2 (20:57→21:30)
[2017-08-17] MEDS: ALBUTEROL/IPRATROPIUM 3 ML NEB RESP TX SCH ×4 (00:28→20:10)
[2017-08-17] MEDS: LEVOTHYROXINE 137 MCG TABLET PO SCH (06:58)
[2017-08-17 07:04] LABS: Basophils # 0.1 10*3/uL (0.0-0.2); Basophils % 0.6 % (0.0-0.8); Eosinophils # 0.3 10*3/uL (0.0-0.87); Eosinophils % 3.2 % (0.00-10.9); Hematocrit 34.1 VOL% (42.0-52.0); Immature Granulocytes % 0.5 %; Immature Granulocytes Absolute 0.05 #; Mean Corpuscular HGB Conc 33.1 GM/DL (32-36); Mean Corpuscular Hemoglobin 29 PG (27-34); Mean Corpuscular Volume 86.1 FL (87-102); Mean Platelet Volume 11.3 FL (9.6-12.0); Monocytes % 10.5 % (1.7-12.7); Neutrophils # 6.1 10*3/uL (1.4-7.4); Neutrophils % 64.2 % (38.7-73.9); Platelet Count 307 T/CUMM (130-400); Red Blood Count 3.96 MC/CUMM (3.8-5.5); Red Cell Distribution Width 14.5 % (9.3-17.3); White Blood Count 9.5 T/CUMM (4-12)
[2017-08-17 07:06] LABS: Hemoglobin 11.3 GM/DL (14.0-18.0)
[2017-08-17 07:37] LABS: Alanine Aminotransferase < 9 U/L (16-61); Albumin 3.4 G/DL (3.4-5.0); Alkaline Phosphatase 94 U/L (45-117); Aspartate Amino Transferase 26 U/L (0-37); Blood Urea Nitrogen 42 MG/DL (7-18); Calcium 9.2 MG/DL (8.5-10.1); Glucose 151 MG/DL (74-106); Osmolality,Calculated 279.4 MOS/KG (273-304); Potassium 4.6 MMOL/L (3.5-5.1); Sodium 133 MMOL/L (136-145); Total Protein 7.6 G/DL (6.4-8.3)
[2017-08-17 09:10] LABS: Lymphocytes,Pleural Fluid 82 %; Monocytes,Pleural Fluid 3 %; Neutrophils,Pleural Fluid 15 %
[2017-08-17 09:11] LABS: RBC,Pleural Fluid > 100000 T/CUMM
[2017-08-17] MEDS: PANTOPRAZOLE 40 MG TABLET PO SCH (09:26)
[2017-08-17] MEDS: DOCUSATE SODIUM 100 MG CAPSULE PO SCH ×2 (09:26→21:23)
[2017-08-17] MEDS: ALPRAZolam 0.25 MG TABLET PO SCH ×3 (09:26→23:21)
[2017-08-17] MEDS: FAMOTIDINE 20 MG TABLET PO SCH ×2 (09:26→21:23)
[2017-08-17] MEDS: SERTRALINE 25 MG TABLET PO SCH (09:26)
[2017-08-17] MEDS: GLIMEPIRIDE 2 MG TABLET PO SCH (09:26)
[2017-08-17] MEDS: FERROUS SULFATE 325 MG TABLET PO SCH (09:26)
[2017-08-17] MEDS: INSULIN NPH/REGULAR 70/30 100 UNIT/ML SUBCUT SCH ×2 (09:27→16:54)
[2017-08-17] MEDS: ASPIRIN EC 81 MG TABLET PO SCH (09:27)
[2017-08-17] MEDS: cefTRIAXone 1,000 MG in SYRINGE 1 EACH IV SCH (11:17)
[2017-08-17] MEDS: ENOXAPARIN 40 MG/0.4 ML SYRINGE SUBCUT SCH (21:23)
[2017-08-18 05:29] LABS: Calcium 8.7 MG/DL (8.5-10.1); Osmolality,Calculated 282.1 MOS/KG (273-304); Potassium 4.4 MMOL/L (3.5-5.1)
[2017-08-18] MEDS: LEVOTHYROXINE 137 MCG TABLET PO SCH (06:50)
[2017-08-18] MEDS: ALBUTEROL/IPRATROPIUM 3 ML NEB RESP TX SCH ×4 (08:00→19:56)
[2017-08-18 08:05] LABS: Basophils # 0.1 10*3/uL (0.0-0.2); Basophils % 0.7 % (0.0-0.8); Eosinophils # 0.4 10*3/uL (0.0-0.87); Eosinophils % 5.2 % (0.00-10.9); Hematocrit 28.7 VOL% (42.0-52.0); Hemoglobin 9.5 GM/DL (14.0-18.0); Immature Granulocytes % 0.7 %; Immature Granulocytes Absolute 0.05 #; Lymphocytes # 1.4 10*3/uL (1.4-4.0); Lymphocytes % 18.7 % (21.2-54.2); Mean Corpuscular HGB Conc 33.1 GM/DL (32-36); Mean Corpuscular Hemoglobin 28 PG (27-34); Mean Corpuscular Volume 85.2 FL (87-102); Monocytes # 0.8 10*3/uL (0.11-0.8); Monocytes % 9.8 % (1.7-12.7); Neutrophils % 64.9 % (38.7-73.9); Platelet Count 262 T/CUMM (130-400); Red Blood Count 3.37 MC/CUMM (3.8-5.5); Red Cell Distribution Width 14.2 % (9.3-17.3); White Blood Count 7.7 T/CUMM (4-12)
[2017-08-18] MEDS: DOCUSATE SODIUM 100 MG CAPSULE PO SCH ×2 (09:21→20:39)
[2017-08-18] MEDS: FAMOTIDINE 20 MG TABLET PO SCH ×2 (09:22→20:39)
[2017-08-18] MEDS: FERROUS SULFATE 325 MG TABLET PO SCH (09:22)
[2017-08-18] MEDS: PANTOPRAZOLE 40 MG TABLET PO SCH (09:23)
[2017-08-18] MEDS: ALPRAZolam 0.25 MG TABLET PO SCH ×3 (09:24→20:45)
[2017-08-18] MEDS: SERTRALINE 25 MG TABLET PO SCH (09:25)
[2017-08-18] MEDS: INSULIN NPH/REGULAR 70/30 100 UNIT/ML SUBCUT SCH ×2 (09:47→17:21)
[2017-08-18] MEDS: ASPIRIN EC 81 MG TABLET PO SCH (09:47)
[2017-08-18] MEDS: GLIMEPIRIDE 2 MG TABLET PO SCH (09:47)
[2017-08-18] MEDS: cefTRIAXone 1,000 MG in SYRINGE 1 EACH IV SCH (13:51)
[2017-08-18] MEDS ORDERED: BISACODYL 5 MG TABLET PO ONE (20:00)
[2017-08-18] MEDS: ALUMINUM/MAGNES/SIMETH MAX STR 30 ML UDCUP PO PRN (20:39)
[2017-08-18] MEDS: ENOXAPARIN 40 MG/0.4 ML SYRINGE SUBCUT SCH (20:39)
[2017-08-19] MEDS: ALBUTEROL/IPRATROPIUM 3 ML NEB RESP TX SCH ×2 (00:05→06:52)
[2017-08-19 06:34] LABS: Basophils # 0.1 10*3/uL (0.0-0.2); Basophils % 0.9 % (0.0-0.8); Eosinophils # 0.4 10*3/uL (0.0-0.87); Eosinophils % 5.4 % (0.00-10.9); Hematocrit 30.3 VOL% (42.0-52.0); Hemoglobin 10.4 GM/DL (14.0-18.0); Immature Granulocytes % 0.4 %; Immature Granulocytes Absolute 0.03 #; Lymphocytes # 1.4 10*3/uL (1.4-4.0); Lymphocytes % 19.2 % (21.2-54.2); Mean Corpuscular HGB Conc 34.3 GM/DL (32-36); Mean Corpuscular Hemoglobin 29 PG (27-34); Mean Corpuscular Volume 83.5 FL (87-102); Mean Platelet Volume 11.9 FL (9.6-12.0); Monocytes # 0.7 10*3/uL (0.11-0.8); Monocytes % 9.8 % (1.7-12.7); Neutrophils # 4.5 10*3/uL (1.4-7.4); Neutrophils % 64.3 % (38.7-73.9); Platelet Count 287 T/CUMM (130-400); Red Blood Count 3.63 MC/CUMM (3.8-5.5); Red Cell Distribution Width 13.9 % (9.3-17.3)
[2017-08-19 06:56] LABS: Calcium 8.6 MG/DL (8.5-10.1); Osmolality,Calculated 278.2 MOS/KG (273-304); Potassium 4.6 MMOL/L (3.5-5.1)
[2017-08-19] MEDS: LEVOTHYROXINE 137 MCG TABLET PO SCH (07:37)
[2017-08-19] MEDS: DOCUSATE SODIUM 100 MG CAPSULE PO SCH (08:49)
[2017-08-19] MEDS: PANTOPRAZOLE 40 MG TABLET PO SCH (08:49)
[2017-08-19] MEDS: FERROUS SULFATE 325 MG TABLET PO SCH (08:49)
[2017-08-19] MEDS: ALPRAZolam 0.25 MG TABLET PO SCH (08:49)
[2017-08-19] MEDS: FAMOTIDINE 20 MG TABLET PO SCH (08:50)
[2017-08-19] MEDS: ASPIRIN EC 81 MG TABLET PO SCH (08:50)
[2017-08-19] MEDS: GLIMEPIRIDE 2 MG TABLET PO SCH (08:50)
[2017-08-19] MEDS: SERTRALINE 25 MG TABLET PO SCH (08:52)
[2017-08-19] MEDS: INSULIN NPH/REGULAR 70/30 100 UNIT/ML SUBCUT SCH (08:52)
[2017-08-19] MEDS ORDERED: HYDROCORTISONE 10 MG TABLET PO SCH (09:00)
[2017-08-19] MEDS ORDERED: BISACODYL 5 MG TABLET PO SCH (09:00)
[2017-08-19 12:24] VITALS: BP 99/68
[2017-08-19] MEDS: cefTRIAXone 1,000 MG in SYRINGE 1 EACH IV SCH (13:43)
== END 2017-08-19 13:10 | disposition home health service (06) | DRG 687 ==
LOC: EDUNIT# → EDBD → N.ED 11:12 → N.EDINP 14:42 → N.4E 16:52
PROVIDERS: ADMIT Internal Medicine; ATTEND Internal Medicine

== ENCOUNTER 2017-08-24 12:13 | Inpatient (IN) ==
[2017-08-24] MEDS ORDERED: PANTOPRAZOLE 40 MG VIAL IV STA (12:32)
[2017-08-24] MEDS ORDERED: SODIUM CHLORIDE 0.9% 1,000 ML IV STA (12:32)
[2017-08-24] MEDS ORDERED: ONDANSETRON 4 MG/2 ML VIAL IV STA (12:32)
[2017-08-24] MEDS ORDERED: ALBUTEROL/IPRATROPIUM 3 ML NEB RESP TX STA (12:41)
[2017-08-24 12:52] LABS: Basophils # 0.1 10*3/uL (0.0-0.2); Eosinophils # 0.1 10*3/uL (0.0-0.87); Eosinophils % 2.4 % (0.00-10.9); Hematocrit 33.6 VOL% (42.0-52.0); Hemoglobin 11.3 GM/DL (14.0-18.0); Immature Granulocytes % 0.2 %; Immature Granulocytes Absolute 0.01 #; Lymphocytes % 18.7 % (21.2-54.2); Mean Corpuscular HGB Conc 33.6 GM/DL (32-36); Mean Corpuscular Hemoglobin 28 PG (27-34); Mean Corpuscular Volume 83.8 FL (87-102); Mean Platelet Volume 10.9 FL (9.6-12.0); Monocytes # 0.7 10*3/uL (0.11-0.8); Monocytes % 13.6 % (1.7-12.7); Neutrophils # 3.3 10*3/uL (1.4-7.4); Neutrophils % 64.1 % (38.7-73.9); Platelet Count 254 T/CUMM (130-400); Red Blood Count 4.01 MC/CUMM (3.8-5.5); Red Cell Distribution Width 13.4 % (9.3-17.3); White Blood Count 5.1 T/CUMM (4-12)
[2017-08-24] MEDS ORDERED: PANTOPRAZOLE 40 MG VIAL IV ONE (12:53)
[2017-08-24] MEDS ORDERED: ONDANSETRON 4 MG/2 ML VIAL ONE (12:53)
[2017-08-24 13:02] LABS: PT Patient Result 10.5 SECS; Partial Thromboplastin Time 32.2 SECS (0-40)
[2017-08-24 13:30] LABS: Alanine Aminotransferase 14 U/L (16-61); Albumin 3.5 G/DL (3.4-5.0); Alkaline Phosphatase 101 U/L (45-117); Aspartate Amino Transferase 37 U/L (0-37); Blood Urea Nitrogen 44 MG/DL (7-18); Calcium 8.7 MG/DL (8.5-10.1); Glucose 132 MG/DL (74-106); Osmolality,Calculated 270.9 MOS/KG (273-304); Potassium 5.4 MMOL/L (3.5-5.1); Sodium 129 MMOL/L (136-145); Total Protein 7.5 G/DL (6.4-8.3); Troponin I Only < 0.015 NG/ML (0.00-0.045)
[2017-08-24] MEDS ORDERED: ALBUTEROL/IPRATROPIUM 3 ML NEB RESP TX PRN (18:44)
[2017-08-24] MEDS ORDERED: ONDANSETRON 4 MG/2 ML VIAL IV PRN (18:44)
[2017-08-24] MEDS ORDERED: SODIUM POLYSTYRENE SULFATE 15 GM/60 ML BOTTLE PO STA (19:19)
[2017-08-24] MEDS: methylPREDNISolone SOD SUC 40 MG/1 ML VIAL IV SCH (20:51)
[2017-08-24] MEDS: ALPRAZolam 0.25 MG TABLET PO SCH (20:55)
[2017-08-24] MEDS: HYDROmorphone 2 MG/1 ML VIAL IV PRN (20:57)
[2017-08-24] MEDS: INSULIN REGULAR 100 UNIT/ML SUBCUT SCH (21:02)
[2017-08-24] MEDS ORDERED: FUROSEMIDE 20 MG/2 ML VIAL IV ONE (23:24)
[2017-08-25] MEDS ORDERED: traMADol 50 MG TABLET PO PRN (00:32)
[2017-08-25] MEDS ORDERED: ALUMINUM/MAGNES/SIMETH MAX STR 30 ML UDCUP PO PRN (00:32)
[2017-08-25] MEDS ORDERED: ALBUTEROL/IPRATROPIUM 3 ML NEB RESP TX SCH (01:00)
[2017-08-25] MEDS ORDERED: TAMSULOSIN 0.4 MG CAPSULE PO ONE (01:42)
[2017-08-25] MEDS: ALBUTEROL/IPRATROPIUM 3 ML NEB RESP TX SCH ×6 (02:42→23:50)
[2017-08-25] MEDS: cefTRIAXone 500 MG in SYRINGE 1 EACH IV SCH (02:58)
[2017-08-25 04:25] LABS: Allen Test Positive
[2017-08-25 04:28] LABS: ABG Base Excess -10.8 MMOL/L (-2.5-2.5); ABG HCO3 15.9 MMOL/L (20-26); ABG Oxygen Saturation 96.9 % (95-100); ABG PCO2 22.7 MM HG (35-48); ABG PH 7.371 (7.35-7.45); ABG PO2 89.5 MM HG (80-95)
[2017-08-25] MEDS: methylPREDNISolone SOD SUC 40 MG/1 ML VIAL IV SCH ×3 (04:59→20:58)
[2017-08-25] MEDS: ALPRAZolam 0.25 MG TABLET PO SCH ×3 (05:04→20:52)
[2017-08-25 05:28] LABS: Basophils % 0.2 % (0.0-0.8); Hematocrit 31.2 VOL% (42.0-52.0); Hemoglobin 10.4 GM/DL (14.0-18.0); Immature Granulocytes % 0.9 %; Immature Granulocytes Absolute 0.05 #; Lymphocytes # 0.6 10*3/uL (1.4-4.0); Lymphocytes % 11.2 % (21.2-54.2); Mean Corpuscular HGB Conc 33.3 GM/DL (32-36); Mean Corpuscular Hemoglobin 28 PG (27-34); Mean Corpuscular Volume 84.6 FL (87-102); Mean Platelet Volume 11.1 FL (9.6-12.0); Monocytes # 0.2 10*3/uL (0.11-0.8); Monocytes % 2.6 % (1.7-12.7); Neutrophils # 4.9 10*3/uL (1.4-7.4); Neutrophils % 85.1 % (38.7-73.9); Platelet Count 246 T/CUMM (130-400); Red Blood Count 3.69 MC/CUMM (3.8-5.5); Red Cell Distribution Width 13.4 % (9.3-17.3); White Blood Count 5.7 T/CUMM (4-12)
[2017-08-25 06:02] LABS: Albumin 3.2 G/DL (3.4-5.0); Bilirubin,Total 0.7 MG/DL (0.2-1.0); Calcium 8.4 MG/DL (8.5-10.1); Osmolality,Calculated 277.8 MOS/KG (273-304); Potassium 5.4 MMOL/L (3.5-5.1); Total Protein 6.9 G/DL (6.4-8.3)
[2017-08-25] MEDS: LEVOTHYROXINE 137 MCG TABLET PO SCH (06:41)
[2017-08-25] MEDS: TAMSULOSIN 0.4 MG CAPSULE PO SCH ×2 (08:54→16:55)
[2017-08-25] MEDS: FAMOTIDINE 20 MG TABLET PO SCH ×2 (08:54→20:52)
[2017-08-25] MEDS: INSULIN REGULAR 100 UNIT/ML SUBCUT SCH ×4 (08:54→20:55)
[2017-08-25] MEDS: ASPIRIN EC 81 MG TABLET PO SCH (08:54)
[2017-08-25] MEDS: INSULIN NPH/REGULAR 70/30 100 UNIT/ML SUBCUT SCH ×2 (08:54→16:54)
[2017-08-25] MEDS: BISACODYL 5 MG TABLET PO SCH (08:55)
[2017-08-25] MEDS: SERTRALINE 25 MG TABLET PO SCH (08:55)
[2017-08-25] MEDS ORDERED: PANTOPRAZOLE 40 MG TABLET PO SCH (09:00)
[2017-08-25] MEDS ORDERED: SERTRALINE 25 MG TABLET PO SCH (09:00)
[2017-08-25] MEDS ORDERED: LEVOTHYROXINE 137 MCG TABLET PO SCH (09:00)
[2017-08-25] MEDS: FUROSEMIDE 20 MG/2 ML VIAL IV SCH (10:50)
[2017-08-25] MEDS ORDERED: DIAZEPAM 5 MG TABLET PO ONE (10:50)
[2017-08-25] MEDS ORDERED: SODIUM CHLORIDE 0.45% 1,000 ML IV SCH (11:00)
[2017-08-25] MEDS: SODIUM BICARB INJ 150 MEQ in DEXTROSE 5% 850 ML IV SCH (16:54)
[2017-08-25] MEDS: MORPHINE 2 MG/1 ML SYRINGE IV PRN ×2 (19:02→22:28)
[2017-08-26] MEDS: cefTRIAXone 500 MG in SYRINGE 1 EACH IV SCH (01:18)
[2017-08-26] MEDS: HYDROmorphone 2 MG/1 ML VIAL IV PRN ×2 (01:22→09:25)
[2017-08-26] MEDS: methylPREDNISolone SOD SUC 40 MG/1 ML VIAL IV SCH (04:00)
[2017-08-26] MEDS: ALPRAZolam 0.25 MG TABLET PO SCH ×3 (04:01→20:58)
[2017-08-26] MEDS: ALBUTEROL/IPRATROPIUM 3 ML NEB RESP TX SCH ×5 (04:04→19:18)
[2017-08-26] MEDS ORDERED: DOXYCYCLINE HYCLATE 100 MG CAPSULE PO ONE (05:00)
[2017-08-26] MEDS ORDERED: LIDOCAINE 2% 20 ML VIAL MISC INJ ONE (05:00)
[2017-08-26] MEDS: LEVOTHYROXINE 137 MCG TABLET PO SCH (06:16)
[2017-08-26] MEDS: FAMOTIDINE 20 MG TABLET PO SCH ×2 (08:31→20:57)
[2017-08-26] MEDS: FUROSEMIDE 20 MG/2 ML VIAL IV SCH (08:31)
[2017-08-26] MEDS: BISACODYL 5 MG TABLET PO SCH (08:31)
[2017-08-26] MEDS: SERTRALINE 25 MG TABLET PO SCH (08:31)
[2017-08-26] MEDS: ASPIRIN EC 81 MG TABLET PO SCH (08:31)
[2017-08-26] MEDS: INSULIN REGULAR 100 UNIT/ML SUBCUT SCH ×4 (08:32→20:58)
[2017-08-26] MEDS: TAMSULOSIN 0.4 MG CAPSULE PO SCH ×2 (08:32→17:05)
[2017-08-26] MEDS: INSULIN NPH/REGULAR 70/30 100 UNIT/ML SUBCUT SCH ×2 (08:32→17:05)
[2017-08-26] MEDS: SODIUM BICARB INJ 150 MEQ in DEXTROSE 5% 850 ML IV SCH ×2 (09:19→17:04)
[2017-08-26] MEDS: MORPHINE 2 MG/1 ML SYRINGE IV PRN ×2 (13:16→19:00)
[2017-08-26 16:25] LABS: Calcium 8.3 MG/DL (8.5-10.1); Osmolality,Calculated 281.1 MOS/KG (273-304); Potassium 5.5 MMOL/L (3.5-5.1)
[2017-08-27] MEDS: ALBUTEROL/IPRATROPIUM 3 ML NEB RESP TX SCH ×7 (00:20→23:26)
[2017-08-27] MEDS: cefTRIAXone 500 MG in SYRINGE 1 EACH IV SCH (01:26)
[2017-08-27] MEDS: MORPHINE 2 MG/1 ML SYRINGE IV PRN ×4 (04:02→23:40)
[2017-08-27] MEDS: ALPRAZolam 0.25 MG TABLET PO SCH ×3 (04:02→19:56)
[2017-08-27 05:29] LABS: Basophils % 0.1 % (0.0-0.8); Eosinophils # 0.1 10*3/uL (0.0-0.87); Eosinophils % 0.6 % (0.00-10.9); Hematocrit 24.6 VOL% (42.0-52.0); Hemoglobin 8.6 GM/DL (14.0-18.0); Immature Granulocytes % 0.6 %; Immature Granulocytes Absolute 0.05 #; Lymphocytes # 1.1 10*3/uL (1.4-4.0); Lymphocytes % 12.6 % (21.2-54.2); Mean Corpuscular Hemoglobin 28 PG (27-34); Mean Corpuscular Volume 79.9 FL (87-102); Monocytes % 12.4 % (1.7-12.7); Neutrophils # 6.2 10*3/uL (1.4-7.4); Neutrophils % 73.7 % (38.7-73.9); Platelet Count 199 T/CUMM (130-400); Red Blood Count 3.08 MC/CUMM (3.8-5.5); Red Cell Distribution Width 13.6 % (9.3-17.3); White Blood Count 8.4 T/CUMM (4-12)
[2017-08-27 06:15] LABS: Albumin 2.8 G/DL (3.4-5.0); Bilirubin,Total 0.4 MG/DL (0.2-1.0); Calcium 7.9 MG/DL (8.5-10.1); Osmolality,Calculated 289.7 MOS/KG (273-304); Potassium 3.9 MMOL/L (3.5-5.1)
[2017-08-27] MEDS: LEVOTHYROXINE 137 MCG TABLET PO SCH (07:16)
[2017-08-27 07:55] LABS: Apearance,Urine CLEAR (Clear); Bilirubin,Urine Negative (Negative); Blood, Urine Small mg/dL (Negative); Glucose,Urine (UA) Negative (Negative); Ketones,Urine Negative (Negative); Nitrite,Urine Negative (Negative); Protein,Urine Negative; RBC,Urine 3 /HPF (0-4); Urine Color Yellow (Yellow); Urine Specific Gravity 1.014 (1.001-1.035); Urine Urobilinogen < 2.0 EU/DL (0.2-1.0); WBC,Urine 3 /HPF (0-6)
[2017-08-27] MEDS: HYDROCORTISONE 10 MG TABLET PO SCH (08:32)
[2017-08-27] MEDS: FAMOTIDINE 20 MG TABLET PO SCH ×2 (08:33→21:04)
[2017-08-27] MEDS: BISACODYL 5 MG TABLET PO SCH (08:33)
[2017-08-27] MEDS: INSULIN REGULAR 100 UNIT/ML SUBCUT SCH ×4 (08:34→21:03)
[2017-08-27] MEDS: ASPIRIN EC 81 MG TABLET PO SCH (08:34)
[2017-08-27] MEDS: SERTRALINE 25 MG TABLET PO SCH (08:34)
[2017-08-27] MEDS: TAMSULOSIN 0.4 MG CAPSULE PO SCH ×2 (08:34→17:12)
[2017-08-27] MEDS: INSULIN NPH/REGULAR 70/30 100 UNIT/ML SUBCUT SCH ×2 (08:37→16:43)
[2017-08-27] MEDS: FUROSEMIDE 20 MG/2 ML VIAL IV SCH (08:38)
[2017-08-27] MEDS: SODIUM BICARB INJ 150 MEQ in DEXTROSE 5% 850 ML IV SCH (13:20)
[2017-08-27] MEDS: SODIUM CHLORIDE 0.9% 1,000 ML IV SCH (15:43)
[2017-08-28] MEDS: cefTRIAXone 500 MG in SYRINGE 1 EACH IV SCH (01:39)
[2017-08-28] MEDS: ALBUTEROL/IPRATROPIUM 3 ML NEB RESP TX SCH ×7 (02:49→23:50)
[2017-08-28 05:40] LABS: Alanine Aminotransferase < 9 U/L (16-61); Albumin 2.4 G/DL (3.4-5.0); Alkaline Phosphatase 97 U/L (45-117); Aspartate Amino Transferase 31 U/L (0-37); Blood Urea Nitrogen 47 MG/DL (7-18); Calcium 8.3 MG/DL (8.5-10.1); Glucose 112 MG/DL (74-106); Osmolality,Calculated 278.4 MOS/KG (273-304); Sodium 133 MMOL/L (136-145); Total Protein 6.3 G/DL (6.4-8.3)
[2017-08-28 05:41] LABS: Potassium 4.2 MMOL/L (3.5-5.1)
[2017-08-28] MEDS: ALPRAZolam 0.25 MG TABLET PO SCH ×3 (06:26→20:30)
[2017-08-28 06:35] LABS: Basophils % 0.5 % (0.0-0.8); Eosinophils # 0.2 10*3/uL (0.0-0.87); Eosinophils % 2.9 % (0.00-10.9); Hematocrit 26.5 VOL% (42.0-52.0); Hemoglobin 8.9 GM/DL (14.0-18.0); Immature Granulocytes % 1.2 %; Immature Granulocytes Absolute 0.09 #; Lymphocytes % 13.3 % (21.2-54.2); Mean Corpuscular HGB Conc 33.6 GM/DL (32-36); Mean Corpuscular Hemoglobin 28 PG (27-34); Mean Corpuscular Volume 83.6 FL (87-102); Mean Platelet Volume 11.8 FL (9.6-12.0); Monocytes # 0.9 10*3/uL (0.11-0.8); Monocytes % 11.7 % (1.7-12.7); Neutrophils # 5.3 10*3/uL (1.4-7.4); Neutrophils % 70.4 % (38.7-73.9); Platelet Count 210 T/CUMM (130-400); Red Blood Count 3.17 MC/CUMM (3.8-5.5); Red Cell Distribution Width 13.7 % (9.3-17.3); White Blood Count 7.6 T/CUMM (4-12)
[2017-08-28] MEDS: LEVOTHYROXINE 137 MCG TABLET PO SCH (06:48)
[2017-08-28] MEDS: FUROSEMIDE 20 MG/2 ML VIAL IV SCH (08:21)
[2017-08-28] MEDS: INSULIN NPH/REGULAR 70/30 100 UNIT/ML SUBCUT SCH ×2 (08:22→16:53)
[2017-08-28] MEDS: BISACODYL 5 MG TABLET PO SCH (08:23)
[2017-08-28] MEDS: INSULIN REGULAR 100 UNIT/ML SUBCUT SCH ×4 (08:23→20:28)
[2017-08-28] MEDS: FAMOTIDINE 20 MG TABLET PO SCH ×2 (08:24→20:30)
[2017-08-28] MEDS: ASPIRIN EC 81 MG TABLET PO SCH (08:24)
[2017-08-28] MEDS: TAMSULOSIN 0.4 MG CAPSULE PO SCH ×2 (08:24→16:52)
[2017-08-28] MEDS: HYDROCORTISONE 10 MG TABLET PO SCH (08:24)
[2017-08-28] MEDS: SERTRALINE 25 MG TABLET PO SCH (10:03)
[2017-08-28] MEDS: MORPHINE 2 MG/1 ML SYRINGE IV PRN ×2 (10:28→20:57)
[2017-08-28] MEDS: SODIUM CHLORIDE 0.9% 1,000 ML IV SCH (11:08)
[2017-08-29] MEDS: cefTRIAXone 500 MG in SYRINGE 1 EACH IV SCH (00:41)
[2017-08-29] MEDS: ALBUTEROL/IPRATROPIUM 3 ML NEB RESP TX SCH ×6 (03:40→23:46)
[2017-08-29] MEDS: ALPRAZolam 0.25 MG TABLET PO SCH ×3 (04:03→20:51)
[2017-08-29] MEDS: LEVOTHYROXINE 137 MCG TABLET PO SCH (05:47)
[2017-08-29 06:02] LABS: Basophils % 0.5 % (0.0-0.8); Eosinophils # 0.4 10*3/uL (0.0-0.87); Eosinophils % 5.1 % (0.00-10.9); Hematocrit 26.1 VOL% (42.0-52.0); Hemoglobin 8.8 GM/DL (14.0-18.0); Immature Granulocytes % 1.1 %; Immature Granulocytes Absolute 0.08 #; Lymphocytes % 13.5 % (21.2-54.2); Mean Corpuscular HGB Conc 33.7 GM/DL (32-36); Mean Corpuscular Hemoglobin 28 PG (27-34); Mean Corpuscular Volume 83.1 FL (87-102); Mean Platelet Volume 11.7 FL (9.6-12.0); Monocytes # 0.8 10*3/uL (0.11-0.8); Monocytes % 10.7 % (1.7-12.7); Neutrophils # 5.1 10*3/uL (1.4-7.4); Neutrophils % 69.1 % (38.7-73.9); Platelet Count 229 T/CUMM (130-400); Red Blood Count 3.14 MC/CUMM (3.8-5.5); White Blood Count 7.4 T/CUMM (4-12)
[2017-08-29] MEDS: SODIUM CHLORIDE 0.9% 1,000 ML IV SCH (08:26)
[2017-08-29] MEDS: FUROSEMIDE 20 MG/2 ML VIAL IV SCH (08:29)
[2017-08-29] MEDS: INSULIN NPH/REGULAR 70/30 100 UNIT/ML SUBCUT SCH ×2 (08:29→16:56)
[2017-08-29] MEDS: HYDROCORTISONE 10 MG TABLET PO SCH (08:30)
[2017-08-29] MEDS: BISACODYL 5 MG TABLET PO SCH (08:30)
[2017-08-29] MEDS: ASPIRIN EC 81 MG TABLET PO SCH (08:31)
[2017-08-29] MEDS: FAMOTIDINE 20 MG TABLET PO SCH ×2 (08:31→20:51)
[2017-08-29] MEDS: SERTRALINE 25 MG TABLET PO SCH (08:31)
[2017-08-29] MEDS: TAMSULOSIN 0.4 MG CAPSULE PO SCH ×2 (08:31→16:57)
[2017-08-29] MEDS: INSULIN REGULAR 100 UNIT/ML SUBCUT SCH ×4 (08:33→20:55)
[2017-08-29] MEDS: MORPHINE 2 MG/1 ML SYRINGE IV PRN (14:14)
[2017-08-30] MEDS: cefTRIAXone 500 MG in SYRINGE 1 EACH IV SCH (02:16)
[2017-08-30] MEDS: MORPHINE 2 MG/1 ML SYRINGE IV PRN ×2 (02:25→21:01)
[2017-08-30] MEDS: ALBUTEROL/IPRATROPIUM 3 ML NEB RESP TX SCH ×5 (03:26→19:26)
[2017-08-30] MEDS: SODIUM CHLORIDE 0.9% 1,000 ML IV SCH (03:38)
[2017-08-30] MEDS: ALPRAZolam 0.25 MG TABLET PO SCH ×3 (03:43→20:37)
[2017-08-30 05:59] LABS: Calcium 8.2 MG/DL (8.5-10.1); Osmolality,Calculated 278.8 MOS/KG (273-304)
[2017-08-30] MEDS: LEVOTHYROXINE 137 MCG TABLET PO SCH (06:27)
[2017-08-30] MEDS: BISACODYL 5 MG TABLET PO SCH (09:08)
[2017-08-30] MEDS: SERTRALINE 25 MG TABLET PO SCH (09:09)
[2017-08-30] MEDS: ASPIRIN EC 81 MG TABLET PO SCH (09:09)
[2017-08-30] MEDS: INSULIN NPH/REGULAR 70/30 100 UNIT/ML SUBCUT SCH ×2 (09:09→16:46)
[2017-08-30] MEDS: TAMSULOSIN 0.4 MG CAPSULE PO SCH ×2 (09:09→16:46)
[2017-08-30] MEDS: INSULIN REGULAR 100 UNIT/ML SUBCUT SCH ×4 (09:09→21:04)
[2017-08-30] MEDS: FAMOTIDINE 20 MG TABLET PO SCH ×2 (09:09→20:37)
[2017-08-30] MEDS: HYDROCORTISONE 10 MG TABLET PO SCH (09:10)
[2017-08-30] MEDS: FUROSEMIDE 20 MG/2 ML VIAL IV SCH (09:12)
[2017-08-30] MEDS: MEGESTROL 400 MG/10 ML UDCUP PO SCH (20:37)
[2017-08-31] MEDS: ALBUTEROL/IPRATROPIUM 3 ML NEB RESP TX SCH ×7 (00:28→23:15)
[2017-08-31] MEDS: cefTRIAXone 500 MG in SYRINGE 1 EACH IV SCH (01:09)
[2017-08-31] MEDS: ALPRAZolam 0.25 MG TABLET PO SCH ×2 (03:34→14:23)
[2017-08-31] MEDS: SODIUM CHLORIDE 0.9% 1,000 ML IV SCH (04:55)
[2017-08-31] MEDS: LEVOTHYROXINE 137 MCG TABLET PO SCH (06:02)
[2017-08-31] MEDS: ASPIRIN EC 81 MG TABLET PO SCH (09:08)
[2017-08-31] MEDS: FAMOTIDINE 20 MG TABLET PO SCH ×2 (09:08→20:33)
[2017-08-31] MEDS: HYDROCORTISONE 10 MG TABLET PO SCH (09:08)
[2017-08-31] MEDS: BISACODYL 5 MG TABLET PO SCH (09:08)
[2017-08-31] MEDS: TAMSULOSIN 0.4 MG CAPSULE PO SCH ×2 (09:08→16:43)
[2017-08-31] MEDS: SERTRALINE 25 MG TABLET PO SCH (09:08)
[2017-08-31] MEDS: MEGESTROL 400 MG/10 ML UDCUP PO SCH ×2 (09:09→20:34)
[2017-08-31] MEDS: INSULIN NPH/REGULAR 70/30 100 UNIT/ML SUBCUT SCH ×2 (09:09→16:42)
[2017-08-31] MEDS: FUROSEMIDE 20 MG/2 ML VIAL IV SCH (09:09)
[2017-08-31] MEDS: INSULIN REGULAR 100 UNIT/ML SUBCUT SCH ×4 (09:09→20:35)
[2017-08-31] MEDS: ALPRAZolam 0.5 MG TABLET PO SCH (20:33)
[2017-09-01] MEDS: cefTRIAXone 500 MG in SYRINGE 1 EACH IV SCH (02:02)
[2017-09-01] MEDS: ALBUTEROL/IPRATROPIUM 3 ML NEB RESP TX SCH ×6 (03:30→23:59)
[2017-09-01] MEDS: LEVOTHYROXINE 137 MCG TABLET PO SCH (05:57)
[2017-09-01 05:58] LABS: Basophils % 0.3 % (0.0-0.8); Eosinophils # 0.4 10*3/uL (0.0-0.87); Eosinophils % 4.5 % (0.00-10.9); Hematocrit 25.5 VOL% (42.0-52.0); Hemoglobin 8.5 GM/DL (14.0-18.0); Immature Granulocytes % 0.8 %; Immature Granulocytes Absolute 0.06 #; Lymphocytes # 1.2 10*3/uL (1.4-4.0); Lymphocytes % 15.7 % (21.2-54.2); Mean Corpuscular HGB Conc 33.3 GM/DL (32-36); Mean Corpuscular Hemoglobin 28 PG (27-34); Mean Corpuscular Volume 84.4 FL (87-102); Monocytes # 0.9 10*3/uL (0.11-0.8); Monocytes % 10.7 % (1.7-12.7); Neutrophils # 5.4 10*3/uL (1.4-7.4); Platelet Count 275 T/CUMM (130-400); Red Blood Count 3.02 MC/CUMM (3.8-5.5); Red Cell Distribution Width 13.8 % (9.3-17.3); White Blood Count 7.9 T/CUMM (4-12)
[2017-09-01 06:41] LABS: Calcium 8.3 MG/DL (8.5-10.1); Osmolality,Calculated 278.8 MOS/KG (273-304); Potassium 3.9 MMOL/L (3.5-5.1)
[2017-09-01] MEDS: INSULIN REGULAR 100 UNIT/ML SUBCUT SCH ×4 (08:03→20:46)
[2017-09-01] MEDS: FUROSEMIDE 20 MG/2 ML VIAL IV SCH (08:40)
[2017-09-01] MEDS: INSULIN NPH/REGULAR 70/30 100 UNIT/ML SUBCUT SCH ×2 (08:41→17:20)
[2017-09-01] MEDS: MEGESTROL 400 MG/10 ML UDCUP PO SCH ×2 (08:41→20:45)
[2017-09-01] MEDS: TAMSULOSIN 0.4 MG CAPSULE PO SCH ×2 (08:42→17:19)
[2017-09-01] MEDS: HYDROCORTISONE 10 MG TABLET PO SCH (08:42)
[2017-09-01] MEDS: FAMOTIDINE 20 MG TABLET PO SCH ×2 (08:43→20:45)
[2017-09-01] MEDS: BISACODYL 5 MG TABLET PO SCH (08:43)
[2017-09-01] MEDS: ASPIRIN EC 81 MG TABLET PO SCH (08:44)
[2017-09-01] MEDS: SERTRALINE 25 MG TABLET PO SCH (08:44)
[2017-09-01] MEDS: ALPRAZolam 0.25 MG TABLET PO SCH ×2 (08:54→15:48)
[2017-09-01] MEDS: ALPRAZolam 0.5 MG TABLET PO SCH (20:45)
[2017-09-01] MEDS ORDERED: SODIUM CHLORIDE 0.9% 1,000 ML IV PRN (21:54)
[2017-09-01] MEDS ORDERED: INSULIN NPH/REGULAR 70/30 100 UNIT/ML SUBCUT SCH (21:55)
[2017-09-02] MEDS: cefTRIAXone 500 MG in SYRINGE 1 EACH IV SCH (02:14)
[2017-09-02] MEDS: ALBUTEROL/IPRATROPIUM 3 ML NEB RESP TX SCH ×4 (03:40→14:08)
[2017-09-02] MEDS: LEVOTHYROXINE 137 MCG TABLET PO SCH (06:29)
[2017-09-02] MEDS: INSULIN REGULAR 100 UNIT/ML SUBCUT SCH ×2 (08:36→12:45)
[2017-09-02] MEDS: FUROSEMIDE 20 MG/2 ML VIAL IV SCH (08:53)
[2017-09-02] MEDS: MEGESTROL 400 MG/10 ML UDCUP PO SCH (08:55)
[2017-09-02] MEDS: BISACODYL 5 MG TABLET PO SCH (08:55)
[2017-09-02] MEDS: ALPRAZolam 0.25 MG TABLET PO SCH ×2 (08:56→14:35)
[2017-09-02] MEDS: TAMSULOSIN 0.4 MG CAPSULE PO SCH (08:56)
[2017-09-02] MEDS: ASPIRIN EC 81 MG TABLET PO SCH (08:56)
[2017-09-02] MEDS: SERTRALINE 25 MG TABLET PO SCH (08:56)
[2017-09-02] MEDS: FAMOTIDINE 20 MG TABLET PO SCH (08:56)
[2017-09-02] MEDS: HYDROCORTISONE 10 MG TABLET PO SCH (08:56)
[2017-09-02 12:42] LABS: Basophils % 0.5 % (0.0-0.8); Eosinophils # 0.4 10*3/uL (0.0-0.87); Eosinophils % 4.9 % (0.00-10.9); Hematocrit 29.8 VOL% (42.0-52.0); Hemoglobin 9.8 GM/DL (14.0-18.0); Immature Granulocytes % 0.9 %; Immature Granulocytes Absolute 0.07 #; Lymphocytes # 0.8 10*3/uL (1.4-4.0); Lymphocytes % 10.4 % (21.2-54.2); Mean Corpuscular HGB Conc 32.9 GM/DL (32-36); Mean Corpuscular Hemoglobin 28 PG (27-34); Mean Corpuscular Volume 85.1 FL (87-102); Mean Platelet Volume 10.4 FL (9.6-12.0); Monocytes # 0.8 10*3/uL (0.11-0.8); Monocytes % 10.4 % (1.7-12.7); Neutrophils # 5.7 10*3/uL (1.4-7.4); Neutrophils % 72.9 % (38.7-73.9); Platelet Count 265 T/CUMM (130-400); Red Cell Distribution Width 14.6 % (9.3-17.3); White Blood Count 7.8 T/CUMM (4-12)
[2017-09-02 13:37] VITALS: BP 104/64
== END 2017-09-02 15:43 | disposition home health service (06) | DRG 687 ==
LOC: EDBD → EDUNIT# → N.ED 12:13 → N.EDINP 16:08 → N.4E 18:43
PROVIDERS: ADMIT Internal Medicine; ATTEND Internal Medicine

== ENCOUNTER 2017-09-12 19:46 | Inpatient (IN) ==
[2017-09-12 20:31] LABS: Basophils # 0.1 10*3/uL (0.0-0.2); Basophils % 1.3 % (0.0-0.8); Eosinophils # 0.4 10*3/uL (0.0-0.87); Eosinophils % 4.8 % (0.00-10.9); Hematocrit 30.3 VOL% (42.0-52.0); Immature Granulocytes % 0.4 %; Immature Granulocytes Absolute 0.03 #; Lymphocytes # 2.1 10*3/uL (1.4-4.0); Lymphocytes % 26.1 % (21.2-54.2); Mean Corpuscular Hemoglobin 28 PG (27-34); Mean Corpuscular Volume 83.9 FL (87-102); Mean Platelet Volume 11.6 FL (9.6-12.0); Monocytes # 0.6 10*3/uL (0.11-0.8); Monocytes % 7.4 % (1.7-12.7); Neutrophils # 4.8 10*3/uL (1.4-7.4); Platelet Count 351 T/CUMM (130-400); Red Blood Count 3.61 MC/CUMM (3.8-5.5); Red Cell Distribution Width 14.6 % (9.3-17.3)
[2017-09-12 20:47] LABS: Alanine Aminotransferase 24 U/L (16-61); Albumin 3.1 G/DL (3.4-5.0); Alkaline Phosphatase 136 U/L (45-117); Aspartate Amino Transferase 90 U/L (0-37); Bilirubin,Total < 0.39 MG/DL (0.2-1.0); Blood Urea Nitrogen 32 MG/DL (7-18); Calcium 8.8 MG/DL (8.5-10.1); Glucose 134 MG/DL (74-106); Potassium 4.7 MMOL/L (3.5-5.1); Sodium 136 MMOL/L (136-145)
[2017-09-12 21:01] LABS: Troponin I Only < 0.015 NG/ML (0.00-0.045)
[2017-09-12] MEDS ORDERED: FUROSEMIDE 40 MG/4 ML VIAL IV STA (21:22)
[2017-09-12] MEDS ORDERED: FUROSEMIDE 40 MG/4 ML VIAL ONE (21:26)
[2017-09-12] MEDS: ACETAMINOPHEN 325 MG TABLET PO PRN (23:04)
[2017-09-13] MEDS: PANTOPRAZOLE 40 MG TABLET PO SCH (08:32)
[2017-09-13] MEDS: DOCUSATE SODIUM 100 MG CAPSULE PO SCH ×2 (08:32→22:15)
[2017-09-13] MEDS ORDERED: ACETAMINOPHEN 325 MG TABLET PO PRN (10:08)
[2017-09-13] MEDS: GLIMEPIRIDE 2 MG TABLET PO SCH (10:28)
[2017-09-13] MEDS: FINASTERIDE 5 MG TABLET PO SCH (10:28)
[2017-09-13] MEDS: SERTRALINE 50 MG TABLET PO SCH (10:28)
[2017-09-13] MEDS: CARVEDILOL 6.25 MG TABLET PO SCH ×2 (10:28→22:15)
[2017-09-13] MEDS: LEVOFLOXACIN INJ 250 MG in PREMIX 1 EACH IV SCH (10:52)
[2017-09-13] MEDS: CEFEPIME 500 MG in SYRINGE 1 EACH IV SCH (11:32)
[2017-09-13] MEDS: BACLOFEN 10 MG TABLET PO SCH ×2 (15:06→21:10)
[2017-09-13] MEDS: INSULIN NPH/REGULAR 70/30 100 UNIT/ML SUBCUT SCH (16:17)
[2017-09-13] MEDS: TAMSULOSIN 0.4 MG CAPSULE PO SCH (16:57)
[2017-09-13] MEDS: ONDANSETRON 4 MG/2 ML VIAL IV PRN (19:52)
[2017-09-13] MEDS: FAMOTIDINE 20 MG TABLET PO SCH (21:10)
[2017-09-14] MEDS: CEFEPIME 500 MG in SYRINGE 1 EACH IV SCH ×2 (00:23→11:16)
[2017-09-14] MEDS: ALBUTEROL/IPRATROPIUM 3 ML NEB RESP TX SCH ×7 (00:27→22:34)
[2017-09-14] MEDS: BACLOFEN 10 MG TABLET PO SCH ×3 (08:21→20:37)
[2017-09-14] MEDS: TAMSULOSIN 0.4 MG CAPSULE PO SCH ×2 (08:21→16:13)
[2017-09-14] MEDS: CARVEDILOL 6.25 MG TABLET PO SCH ×2 (08:21→20:37)
[2017-09-14] MEDS: HYDROCORTISONE 10 MG TABLET PO SCH (08:21)
[2017-09-14] MEDS: DOCUSATE SODIUM 100 MG CAPSULE PO SCH ×2 (08:21→20:37)
[2017-09-14] MEDS: FERROUS SULFATE 325 MG TABLET PO SCH (08:21)
[2017-09-14] MEDS: FAMOTIDINE 20 MG TABLET PO SCH ×2 (08:21→20:37)
[2017-09-14] MEDS: GLIMEPIRIDE 2 MG TABLET PO SCH (08:21)
[2017-09-14] MEDS: SERTRALINE 50 MG TABLET PO SCH (08:21)
[2017-09-14] MEDS: FINASTERIDE 5 MG TABLET PO SCH (08:21)
[2017-09-14] MEDS: INSULIN NPH/REGULAR 70/30 100 UNIT/ML SUBCUT SCH ×2 (08:22→17:47)
[2017-09-14] MEDS: PANTOPRAZOLE 40 MG TABLET PO SCH (08:22)
[2017-09-14] MEDS: LEVOTHYROXINE 137 MCG TABLET PO SCH (08:23)
[2017-09-14] MEDS: Cabozantinib S-Malate [Cabometyx] 40 MG PO SCH (09:05)
[2017-09-14 09:59] LABS: Basophils # 0.1 10*3/uL (0.0-0.2); Basophils % 1.2 % (0.0-0.8); Eosinophils # 0.3 10*3/uL (0.0-0.87); Eosinophils % 5.7 % (0.00-10.9); Hematocrit 34.1 VOL% (42.0-52.0); Hemoglobin 11.3 GM/DL (14.0-18.0); Immature Granulocytes % 0.6 %; Immature Granulocytes Absolute 0.03 #; Mean Corpuscular HGB Conc 33.1 GM/DL (32-36); Mean Corpuscular Hemoglobin 28 PG (27-34); Mean Corpuscular Volume 84.8 FL (87-102); Mean Platelet Volume 11.3 FL (9.6-12.0); Monocytes # 0.4 10*3/uL (0.11-0.8); Monocytes % 7.3 % (1.7-12.7); Neutrophils # 3.2 10*3/uL (1.4-7.4); Neutrophils % 64.2 % (38.7-73.9); Platelet Count 263 T/CUMM (130-400); Red Blood Count 4.02 MC/CUMM (3.8-5.5); Red Cell Distribution Width 14.6 % (9.3-17.3)
[2017-09-14 10:18] LABS: Alanine Aminotransferase 30 U/L (16-61); Albumin 2.9 G/DL (3.4-5.0); Alkaline Phosphatase 131 U/L (45-117); Aspartate Amino Transferase 101 U/L (0-37); Bilirubin,Indirect 0.2 MG/DL (0.0-1.0); Bilirubin,Total < 0.39 MG/DL (0.2-1.0); Total Protein 6.9 G/DL (6.4-8.3)
[2017-09-14] MEDS: LEVOFLOXACIN INJ 250 MG in PREMIX 1 EACH IV SCH (10:25)
[2017-09-14] MEDS ORDERED: DEXTROSE 50% 25 GM/50 ML VIAL IV PRN (11:31)
[2017-09-14] MEDS ORDERED: GLUCAGON 1 MG VIAL IM PRN (11:31)
[2017-09-14] MEDS: ACETAMINOPHEN 325 MG TABLET PO PRN (13:11)
[2017-09-14] MEDS: HYDROmorphone 2 MG/1 ML VIAL IV PRN ×2 (14:54→20:38)
[2017-09-15] MEDS: CEFEPIME 500 MG in SYRINGE 1 EACH IV SCH ×2 (00:15→12:13)
[2017-09-15] MEDS: ALBUTEROL/IPRATROPIUM 3 ML NEB RESP TX SCH ×4 (02:04→14:58)
[2017-09-15 07:19] LABS: Albumin 2.7 G/DL (3.4-5.0); Bilirubin,Total 0.5 MG/DL (0.2-1.0); Calcium 8.1 MG/DL (8.5-10.1); Osmolality,Calculated 283.8 MOS/KG (273-304); Potassium 4.6 MMOL/L (3.5-5.1); Total Protein 6.7 G/DL (6.4-8.3)
[2017-09-15] MEDS: ONDANSETRON 4 MG/2 ML VIAL IV PRN (08:30)
[2017-09-15] MEDS: FERROUS SULFATE 325 MG TABLET PO SCH (08:31)
[2017-09-15] MEDS: GLIMEPIRIDE 2 MG TABLET PO SCH (08:31)
[2017-09-15] MEDS: DOCUSATE SODIUM 100 MG CAPSULE PO SCH (08:32)
[2017-09-15] MEDS: SERTRALINE 50 MG TABLET PO SCH (08:32)
[2017-09-15] MEDS: CARVEDILOL 6.25 MG TABLET PO SCH (08:32)
[2017-09-15] MEDS: LEVOTHYROXINE 137 MCG TABLET PO SCH (08:32)
[2017-09-15] MEDS: PANTOPRAZOLE 40 MG TABLET PO SCH (08:32)
[2017-09-15] MEDS: TAMSULOSIN 0.4 MG CAPSULE PO SCH ×2 (08:33→16:32)
[2017-09-15] MEDS: FINASTERIDE 5 MG TABLET PO SCH (08:33)
[2017-09-15] MEDS: HYDROCORTISONE 10 MG TABLET PO SCH (08:33)
[2017-09-15] MEDS: INSULIN NPH/REGULAR 70/30 100 UNIT/ML SUBCUT SCH ×2 (08:35→16:33)
[2017-09-15] MEDS: BACLOFEN 10 MG TABLET PO SCH ×2 (08:36→16:32)
[2017-09-15] MEDS: FAMOTIDINE 20 MG TABLET PO SCH (08:36)
[2017-09-15] MEDS: Cabozantinib S-Malate [Cabometyx] 40 MG PO SCH (10:45)
[2017-09-15] MEDS: LEVOFLOXACIN INJ 250 MG in PREMIX 1 EACH IV SCH (10:45)
[2017-09-15] MEDS: ACETAMINOPHEN 325 MG TABLET PO PRN (11:32)
[2017-09-15 16:43] VITALS: BP 96/72
== END 2017-09-15 18:16 | disposition home health service (06) | DRG 194 ==
LOC: EDBD → EDUNIT# → N.ED 19:46 → N.EDINP 21:23 → N.5E 22:01
PROVIDERS: ADMIT Internal Medicine; ATTEND Internal Medicine